=== PATIENT | female | born 1935 | race Caucasian/White ===

== ENCOUNTER 2018-09-22 10:05 | Day surgery (SDC) | payer MEDICARE, OTHER ==
[2018-09-21 14:43] LABS: BASOPHILS 0.4 % (0-2); EOSINOPHILS 2.2 % (0-7); HEMATOCRIT 31.9 % (36.0-48.0); HEMOGLOBIN 10.4 g/dL (12-16); IMMATURE GRANULOCYTES 0.2 % (0-5); MCHC 32.6 g/dL (31.0-37.0); MCV 85.8 fL (80.0-100.0); MEAN PLATELET VOLUME 8.6 fL (7.4-10.4); MONOCYTES 8.2 % (2-11); PLATELET COUNT 133 10x3/uL (130-400); RBC 3.72 10x6/uL (4.00-5.40); RDW 14.4 % (11.5-14.5); WBC 4.6 10x3/uL (4.8-10.8)
[2018-09-21 14:55] LABS: ANION GAP 13.7 mmol/L (8-16); CALCIUM 8.4 mg/dL (8.5-10.1); CARBON DIOXIDE 28.8 mmol/L (21.0-32.0); POTASSIUM - SERUM 3.5 mmol/L (3.5-5.1)
[~2018-09-22] VITALS: Ht 162.6 cm; Wt 72.7 kg
[~2018-09-22 10:05] MED LIST: CARDURA8 MG PO; CBD OIL PO; CITRACAL + D E1 EACH PO; DICLOFENAC ID; DOC-Q-LACE PO; FLUTICASONE PRO16 GM NASAL; FUROSEMIDE20 MG PO; KLOR-CON 1010 MEQ PO; LEVOXYL25 MCG PO; LIDOCAINE ID; MICARDIS HCT 81 EACH PO; NEURONTIN 300300 MG PO; POLY-IRON PO; PROTONIX40 MG PO; TOPROL XL50 MG PO; VITAMIN B-122500 MCG PO
[2018-09-22 10:54] VITALS: BP 140/77; BMI 25.8
[2018-09-22] MEDS ORDERED: PERCOCET 5-3251 TAB PO (14:25)
--- NOTE | 2018-09-22 18:45 | NUR ---
THIS NURSE ENTERS ROOM TO TRANSFER PATIENT TO [facility] RIGHT LOWER EXTREMITY DRESSING SATURATED WITH BLOOD AND ON THE SHEET UNDER THE EXTREMITY IN AREA ABOUT 6 INCHES X 12 INCHES. ATTEMPT TO PAGE DR AVILA
--- NOTE | 2018-09-22 18:45 | NUR ---
REPORT RECEIVED FROM ROSEMARY IN OUTPATIENT RECOVERY. WILL BRING PATIENT TO ROOM SHORTLY.
--- NOTE | 2018-09-22 19:10 | NUR ---
NO RESPONSE FROM DR AVILA. RIGHT KNEE CECILIA WRAP REMOVED, 4 X 4'S REMOVED, YELLOW DRESSING DIRECTLY OVER THE INCISION IS NOT SATURATED AND IS INTACT, THIS DRESSING LEFT ON. NEW 4 X 4'S AND KERLIX AND CECILIA WRAP PLACED. PATIENT TOLERATED PROCEDURE WELL. BRACE REPLACED
--- NOTE | 2018-09-22 19:30 | NUR ---
PATIENT TRANSFERRED BY WHEELCHAIR TO ROOM 2219, PATIENT TRANSFERRED WITH HEAVY ASSIST MAINTAINING NON-WEIGHT BEARING ON RLE
[2018-09-22 21:48] VITALS: BP 106/61
[2018-09-23 00:55] VITALS: BP 108/70
[2018-09-23 02:21] VITALS: BP 115/46; Ht 162.6 cm; Wt 72.7 kg
--- NOTE | 2018-09-23 03:00 | NUR ---
POST OP RIGHT KNEE BLEEDING THROUGH BANDAGE ONTO BED. REMOVED CECILIA WRAP AND DRESSING. APPLIED NEW GAUZE AND WRAPPED WITH KERLIX AND CECILIA. BRACE IN PLACE. CHANGED BEDDING. C/O PAIN 01/30. GAVE PAIN MED. NO OTHER NEEDS. WILL CONTINUE TO MONITOR.
[2018-09-23 05:35] VITALS: BP 113/47
[2018-09-23 08:25] VITALS: BP 119/54
--- NOTE | 2018-09-23 08:59 | NUR ---
PATIENT RESTING IN BED, S/P PARTIAL HARDWARE CHANGE TO RIGHT KNEE. DRESSING C/D/I, RIGHT LOWER LEG ELEVATED WITH PILLOW WITH ICE PACK APPLIED.
--- NOTE | 2018-09-23 11:47 | MORECARE ---
CASE MANAGEMENT DISCHARGE SUMMARY PATIENT: KEILA KENT UNIT: [id number] ADM DATE: 09/22/18 AGE: 83 : 36 SEX: F ROOM/BED: D.2219 AUTHOR: SANTIAGO,DOC PHYSICIAN: REFERRING PHYSICIAN: MARLENE AVILA MD DATE OF SERVICE: 09/23/18 Discharge Plan Patient Name: KEILA KENT Facility: [facility]:[place] : 1935 Planned Disposition: Anticipated Discharge Date: Discharge Date: Expected LOS: 0 Initial Reviewer: [email or web address] Initial Review Date: 09/23/2018 Generated: 09/23/18 12:47 pm Comments DCP- Discharge Planning Updated by [email or web address]: eKke Fry on 09/23/18 10:[address] Patient Name: KEILA KENT Admission Status: Elective Accout number: [id number] Admission Date: 09-22-2018 : 1935 Admission Diagnosis: Attending: MARLENE AVILA Current LOS: 1 Anticipated DC Date: Planned Disposition: Primary Insurance: MEDICARE A & B Discharge Planning Comments: CM met with patient to assess discharge planning needs. Patient was independent with her ADL's prior to surgery. She has a walker that she uses. There are no steps or stairs in her home. Her will be the one to drive her home when she is discharged. She would like to go to inpatient rehab. She does not feel safe to return home and her has some rese reservations about her coming home how she is doing at this point. Referral to inpatient rehab ordered. CM will continue to follow and assist with DC planning needs. Customer Care Manager: Keke Fry DCPIA - Discharge Planning Initial Assessment Updated by [email or web address]: Keke Fry on 09/23/18 11:43 am * Is the patient Alert and Oriented? Yes * How many steps to enter\exit or inside your home? * PCP KAIT * Pharmacy [facility] [address] [facility] * Preadmission Environment Home with Family * ADLs Independent * Equipment Rolling Walker * List name and contact numbers for known caregivers / representatives who currently or will assist patient after discharge: MARGRET KENT [phone] * Verbal permission to speak to the caregivers and representatives has been obtained from the patient. N/A * Community resources currently utilized None * Additional services required to return to the preadmission environment? Yes * Can the patient safely return to the preadmission environment? No * Has this patient been hospitalized within the prior 30 days at any hospital? No Patient Name: KEILA KENT Page [id number] at 1147 All edits/amendments must be made on the electronic document DICTATION DATE: 09/23/18 1146 MANAGER OF SOFTWARE DEVELOPMENT: ANABEL 09/23/18 1146 RPT#: [id number] DC DATE: STATUS: REG [facility] [address] [place] [address] END OF REPORT
--- NOTE | 2018-09-23 12:02 | NUR ---
PATIENT CONTINUES TO C/O PAIN TO RIGHT LEG OF 10 AFTER PERCOCET 5 GIVEN AT 1030, NOTIFIED DR LUCERO NURSE, JL ANN APN, WITH ORDERS TO INCREASE PERCOCET TO 10/325 AND TO GIVE ONE DOSE NOW
[2018-09-23 12:05] VITALS: BP 134/50
--- NOTE | 2018-09-23 12:41 | NUR ---
Rehab Note- Acute Inpatient prescreen order received. The patient had surgery 09/22/18, will follow to see for medical management necessity for inpatient acute rehab. Spoke with JOHANA Lim. Thank you for this referral! Russ Roach RN Clinical Liaison, [facility] Rehab
[2018-09-23 14:37] LABS: HEMOGLOBIN 9.2 g/dL (12-16); LYMPHOCYTES 10.1 % (15-50); MCHC 34.1 g/dL (31.0-37.0); MCV 85.2 fL (80.0-100.0); MEAN PLATELET VOLUME 8.1 fL (7.4-10.4); NEUTROPHILS 79.2 % (40-80); PLATELET COUNT 146 10x3/uL (130-400); RBC 3.17 10x6/uL (4.00-5.40)
[2018-09-23 14:40] LABS: WBC 6.4 10x3/uL (4.8-10.8)
--- NOTE | 2018-09-23 15:31 | MORECARE ---
CASE MANAGEMENT DISCHARGE SUMMARY PATIENT: KEILA KENT UNIT: [id number] ADM DATE: 09/22/18 AGE: 83 : 36 SEX: F ROOM/BED: D.2219 AUTHOR: SANTIAGODOC PHYSICIAN: REFERRING PHYSICIAN: MARLENE AVILA MD DATE OF SERVICE: 09/23/18 Discharge Plan Patient Name: KEILA KENT Facility: [facility]:[place] : 1935 Planned Disposition: Anticipated Discharge Date: Discharge Date: Expected LOS: 0 Initial Reviewer: [email or web address] Initial Review Date: 09/23/2018 Generated: 09/23/18 4:31 pm Comments DCP- Discharge Planning Updated by [email or web address]: Keke Fry on 09/23/18 2:[address] inpatient rehab will accept patient today per Johanne DCP- Discharge Planning Updated by [email or web address]: Keke Fry on 09/23/18 10:[address] Patient Name: KEILA KENT Admission Status: Elective Accout number: [id number] Admission Date: 09-22-2018 : 1935 Admission Diagnosis: Attending: MARLENE AVILA Current LOS: 1 Anticipated DC Date: Planned Disposition: Primary Insurance: MEDICARE A & B Discharge Planning Comments: CM met with patient to assess discharge planning needs. Patient was independent with her ADL's prior to surgery. She has a walker that she uses. There are no steps or stairs in her home. Her will be the one to drive her home when she is discharged. She would like to go to inpatient rehab. She does not feel safe to return home and her has some rese reservations about her coming home how she is doing at this point. Referral to inpatient rehab ordered. CM will continue to follow and assist with DC planning needs. Warhead Maintenance Specialist: Keke Fry DCPIA - Discharge Planning Initial Assessment Updated by [email or web address]: Keke Fry on 09/23/18 11:43 am * Is the patient Alert and Oriented? Yes * How many steps to enter\exit or inside your home? * PCP K[facility] * [facility] * Preadmission Environment Home with Family * ADLs Independent * Equipment Rolling Walker * List name and contact numbers for known caregivers / representatives who currently or will assist patient after discharge: MARGRET KENT [phone] * Verbal permission to speak to the caregivers and representatives has been obtained from the patient. N/A * Community resources currently utilized None * Additional services required to return to the preadmission environment? Yes * Can the patient safely return to the preadmission environment? No * Has this patient been hospitalized within the prior 30 days at any hospital? No Last DP export: 09/23/18 10:47 am Patient Name: KEILA KENT Page [phone] at 1531 All edits/amendments must be made on the electronic document DICTATION DATE: 09/23/181529 PEANUT SEPARATOR: ANABEL 09/23/181529 RPT#: [id number] DC DATE: STATUS: REG [facility] [address] [place] [address] END OF REPORT
[2018-09-23 16:00] VITALS: BP 157/77
--- NOTE | 2018-09-23 17:32 | NUR ---
REPORT CALLED TO REHAB. IV REMOVED WITH CATH INTACT, NO REDNESS OR EDEMA AT SITE. DISCHRGE TEACHING GIVEN TO PATIENT AND
--- NOTE | 2018-09-23 18:42 | NUR ---
PATIENT TAKEN TO REHAB BY WHEELCHAIR
[2018-09-23] MEDS ORDERED: COLACE100 MG PO (23:30)
[2018-09-23] MEDS ORDERED: ZOFRAN4 MG PO (23:32)
--- NOTE | 2018-09-29 13:37 | OP ---
PATIENT NAME: KEILA KENT MEDICAL RECORD: [id number] :[birth year] LOCATION:D.OPS ADMISSION DATE: SURGEON: MARLENE AVILA MD DATE OF OPERATION: 09/22/2018 PREOPERATIVE DIAGNOSES: 1. Chronic patellar tendon rupture. 2. Painful hardware. POSTOPERATIVE DIAGNOSES: 1. Chronic patellar tendon rupture. 2. Painful hardware. PROCEDURES: 1. Allograft patellar tendon reconstruction. 2. Removal of previously placed hardware - D[place]-Miles cable. SURGEON: Marlene Avila MD LEARNING AND DEVELOPMENT ASSISTANT: LIZBETH Diamond INTRAOPERATIVE COMPLICATIONS: None. SUMMARY OF PATHOLOGIC FINDINGS: The patient was found to have a complete rupture of the patellar tendon with extreme patella marko. In order to fix this, internal bracing technique from [employer] was utilized in turn with a large Achilles tendon allograft that was soaked in the patient's PRP prior to placement and the tendinous portion was injected with PRP after fixation. OPERATIVE SUMMARY IN DETAIL: After obtaining the appropriate preoperative orthopedic surgery consent as well as anesthetic consultation, evaluation, and clearance, the patient was brought to the operating room and placed on the operating table in the supine position. After general laryngeal mask airway was administered, a tourniquet was placed about the proximal aspect of the right lower extremity. The right lower extremity was then prepped and draped in routine sterile fashion. The leg was elevated, exsanguinated, and the tourniquet was inflated to 350 mmHg. A midline incision was taken down where the patient's prior total knee arthroplasty had been done. This was taken down to the level of the tibial tubercle. The fibrous tissue was excised as it had no elasticity. At this point, bone block matching the bone block size of the tibial tubercle and the osseous portion of the Achilles allograft was cut out. It was seated with pressure and then held into place with 3 compression screws from [employer]. The screws were angled slightly medial to miss the keel and post of the previously placed revision total knee arthroplasty. At this point, the tendon was pulled up to the patella, and at this point, I made the decision to put in 2 internal braces to help hold with this repair. The patella was clamped on either side and pulled to its appropriate location from its marko position as seen on fluoroscopy. A combination of 3.5 SwiveLocks and FiberTape were used, both medial and lateral to the graft. The lateral patellar SwiveLock required a 4.75 as the patient did have osteoporosis. The patella was held at its appropriate position with the internal braces while the graft was sutured in. I took the liberty of excising medial and lateral portions of nonelastic-appearing scar tissue to help reapproximate the retinaculum to the graft. The retinaculum to the graft was achieved with crisscross running FiberWire medially and laterally. FiberWire was again used to reapproximate the proximal aspect of the OPERATIVE REPORT [id number] KEILA KENT graft to the patellar paratenon and periosteum. This was then irrigated copiously. This was followed by gentle placement of PRP in the entire incision. Please note that the bone graft had been soaked in PRP. Then, with an 18-gauge needle, the graft itself was insufflated from proximal to distal as well as putting PRP into the torres martinez tissue on each side. Having completed this, wound was then closed with #1 Vicryl, 2-0 Vicryl, and skin enrique. Sterile dressings were applied. A knee immobilizer was applied with hinges set at and locked out at 0. Having completed this, tourniquet was deflated. The patient was awakened and taken to the recovery room in stable condition. All final needle and sponge counts were correct. TRANSINT:[id number] Voice Confirmation ID: [id number] DOCUMENT ID: [id number] AUSTIN VELEZ, MARLENE BAUER at 1337 CC: [id number] DICTATION DATE: 09/28/18 1358 ASSEMBLING MOTOR BUILDER: 09/28/18 1621 [facility] 09/23/18 [facility] [address] [id number]
== END 2018-09-23 18:45 | disposition home or self-care (01) ==
LOC: D.MS 10:05 → D.OPS 10:05 → D.PAN 14:45 → D.OPS 15:55 → D.MS 18:39 → D.OPS 09-23 18:45
PROVIDERS: Anesthesiology; Orthopaedic Surgery
DX: S76.111A Strain of right quadriceps muscle, fascia and tendon, initial encounter (principal); X58.XXXA Exposure to other specified factors, initial encounter; T84.84XA Pain due to internal orthopedic prosthetic devices, implants and grafts, initial encounter

== ENCOUNTER 2018-09-23 19:17 | Inpatient (IN) | payer MEDICARE, OTHER ==
[~2018-09-23] VITALS: Ht 162.6 cm; Wt 72.6 kg
--- NOTE | 2018-09-23 19:00 | NUR ---
PT ARRIVED TO UNIT VIA WC PROPELLED BY STAFF. TAKEN TO ROOM 1115. MAX TRANSFER X 2 ASSISTS REQUIRED TO TRANSFER PT TO BED. PT IS ALERT AND ORIENTED X 3. PT AND SPOUSE BEGAN DEMANDING PAIN MEDICINE SOON BROUGHT TO UNIT. THEY STATED THEY COULD NOT HAVE ANYTHING FOR PAIN OR NAUSEA UNTIL THE GOT TO REHAB. I EXPLAINED THAT IT WOULD BE A LITTLE WHILE TO GET PT ADMITTED AND GET MEDS ORDERED. BOTH VOICED VERBAL UNDERSTANDING TO THIS. PT HAS A HINGED BRACE ON HER RIGHT KNEE. ORIENTED TO ROOM AND REHAB RULES WITH VERBAL UNDERSTANDING VOICED. SR'S ARE UP X 3 IN BED. CALL LIGHT AND BEDSIDE TABLE ARE WITHIN EASY REACH.
[~2018-09-23 19:17] MED LIST changes: +PERCOCET 5-3251 TAB PO
--- NOTE | 2018-09-23 19:40 | NUR ---
PT IN COMPUTER. ORDERS WRITTEN AND SENT TO PHARMACY. PTS SPOUSE IS AT THE NURSES STATION Q10 MINUTES DEMANDING THE DR BE CALLED SINCE I WAS UNABLE TO GET THE JOB DONE.
--- NOTE | 2018-09-23 19:58 | NUR ---
PATIENT IS RESTING IN HER BED. SPOUSE AND PRIMARY NURSE AT BEDSIDE. BED IS DOWN LOW WITH SIDE RAILS UP X2. CALL LIGHT IS IN REACH.
--- NOTE | 2018-09-23 22:25 | NUR ---
PT ASSISTED ONTO BEDPAN. SPOUSE STATES HE WILL CALL WHEN SHE IS FINISHED.
[2018-09-23 23:14] VITALS: BP 159/72
[2018-09-23] MEDS ORDERED: COLACE100 MG PO (23:30)
[2018-09-23] MEDS ORDERED: ZOFRAN4 MG PO (23:32)
--- NOTE | 2018-09-24 01:00 | NUR ---
PT IS RESTING IN BED WITH EYES OPEN. NO ACUTE DISTRESS NOTED.
--- NOTE | 2018-09-24 04:44 | NUR ---
RESTING IN BED WITH EYES CLOSED.
[2018-09-24 06:35] LABS: BASOPHILS 0.2 % (0-2); EOSINOPHILS 0.2 % (0-7); HEMATOCRIT 26.6 % (36.0-48.0); HEMOGLOBIN 8.7 g/dL (12-16); IMMATURE GRANULOCYTES 0.2 % (0-5); LYMPHOCYTES 13.4 % (15-50); MCH 27.8 pg (26.0-34.0); MCHC 32.7 g/dL (31.0-37.0); MEAN PLATELET VOLUME 8.3 fL (7.4-10.4); MONOCYTES 10.2 % (2-11); NEUTROPHILS 75.8 % (40-80); PLATELET COUNT 126 10x3/uL (130-400); RBC 3.13 10x6/uL (4.00-5.40); RDW 14.6 % (11.5-14.5); WBC 5.6 10x3/uL (4.8-10.8)
[2018-09-24 06:49] LABS: ANION GAP 13.5 mmol/L (8-16); CALCIUM 8.3 mg/dL (8.5-10.1); CARBON DIOXIDE 27.6 mmol/L (21.0-32.0); CREATININE - SERUM 0.8 mg/dL (0.6-1.3); POTASSIUM - SERUM 3.1 mmol/L (3.5-5.1)
[2018-09-24 08:18] VITALS: BP 148/71
[2018-09-24 10:00] VITALS: Ht 162.6 cm; Wt 72.6 kg
--- NOTE | 2018-09-24 18:31 | NUR ---
NEEDS LOTS OF ENCOURAGEMENT TO TO SIMPLE TASKS LIKE TAKING MEDS AND EATING. MOVEMENTS ARE SLOW. STILL HAS BRACE TO RT KNEE. HAS ASK FOR PAIN MEDS ONCE TODAY. STILL HAVING NAUSEA.
--- NOTE | 2018-09-24 19:14 | NUR ---
PATIENT IS RESTING IN HER BED AND WORKING ON FINISHING HER DINNER. DENIES ANY NEEDS. BED IS DOWN LOW WITH SIDE RAILS UP X2. CALL LIGHT IS IN REACH.
--- NOTE | 2018-09-24 21:21 | NUR ---
PT RESTING IN BED WITH EYES OPEN. NO NEEDS VOICED.
--- NOTE | 2018-09-25 00:07 | NUR ---
RESTING IN BED WITH EYES CLOSED.
--- NOTE | 2018-09-25 05:59 | NUR ---
PT RESTING IN BED WITH EYES CLOSED. AWOKE EASILY TO VERBAL STIMULI. TOLERATED AM MEDS WITHOUT DIFFICULTY. NO FURTHER NEEDS VOICED.
[2018-09-25 07:59] VITALS: BP 144/60
[2018-09-25 18:43] VITALS: BP 97/36
[2018-09-25 19:12] VITALS: BP 97/36
--- NOTE | 2018-09-25 19:16 | NUR ---
PATIENT IS RESTING IN BED WITH EYES CLOSED. BED IS DOWN LOW WITH SIDE RAILS UP X2. CALL LIGHT IS IN REACH.
--- NOTE | 2018-09-25 21:58 | NUR ---
PT RESTING IN BED WATCHING TV. NO NEEDS VOICED.
--- NOTE | 2018-09-26 01:00 | NUR ---
PT RESTING IN BED WITH EYES CLOSED. NO DISTRESS NOTED.
--- NOTE | 2018-09-26 04:59 | NUR ---
PT RESTING IN BED WITH EYES CLOSED.
[2018-09-26 06:53] LABS: BASOPHILS 0.3 % (0-2); EOSINOPHILS 3.1 % (0-7); HEMATOCRIT 25.1 % (36.0-48.0); HEMOGLOBIN 8.2 g/dL (12-16); LYMPHOCYTES 21.3 % (15-50); MCH 28.6 pg (26.0-34.0); MCHC 32.7 g/dL (31.0-37.0); MCV 87.5 fL (80.0-100.0); MEAN PLATELET VOLUME 8.3 fL (7.4-10.4); MONOCYTES 9.4 % (2-11); NEUTROPHILS 65.9 % (40-80); PLATELET COUNT 110 10x3/uL (130-400); RBC 2.87 10x6/uL (4.00-5.40); RDW 14.9 % (11.5-14.5); WBC 3.2 10x3/uL (4.8-10.8)
[2018-09-26 07:04] LABS: CALCIUM 8.3 mg/dL (8.5-10.1); CARBON DIOXIDE 29.1 mmol/L (21.0-32.0); POTASSIUM - SERUM 4.1 mmol/L (3.5-5.1)
--- NOTE | 2018-09-26 07:59 | NUR ---
SITTING UP EATING BREAKFAST. NO S/S DISTRESS NOTED. CALL LIGHT IN REACH.
[2018-09-26 08:00] VITALS: BP 104/43
--- NOTE | 2018-09-26 13:58 | NUR ---
SITTING IN WC IN ROOM. IS STILL IN ROOM WITH PT. BRACE STILL ON RLE. INCISION TO RT KNEE NOTED UNDER DSG. CALL FERMIN ALVAREZ.
--- NOTE | 2018-09-26 18:35 | NUR ---
LAYING IN BED. STILL RECEIVING BLOOD VIA LEFT AC. IN ROOM WITH PT HELPING HER WITH SUPPER. SHE IS SLOW TO FOLLOW COMMANDS AND SPEECH IS SLOW BUT CLEAR. CALL LIGHT IN REACH. BRACE ON RT KNEE.
--- NOTE | 2018-09-26 19:13 | NUR ---
PATIENT IS LAYING IN BED RECEIVING BLOOD. FAMILY MEMBER AT BEDSIDE.
--- NOTE | 2018-09-26 19:45 | NUR ---
BLOOD TRANSFUSION COMPLETE. PATIENT AWAKE AND ALERT. VITAL SIGNS T-97.7, P-80, SP02 94, BP 120/55, RR 16. WCTM.
[2018-09-26 19:49] VITALS: BP 120/55
[2018-09-26 21:00] VITALS: BP 109/52
--- NOTE | 2018-09-27 00:12 | NUR ---
PATIENT AWAKE SITTING IN BED READING THE NEWSPAPER. DENIES ANY NEEDS AT THIS TIME. CALL LIGHT IN REACH.
--- NOTE | 2018-09-27 03:00 | NUR ---
PATIENT ASLEEP WITH EYES CLOSED LAYING IN SUPINE POSITION. HOB AT 30 DEGREES. RESPIRATIONS EVEN. NO SIGNS OF DISTRESS. CALL LIGHT IN REACH.
--- NOTE | 2018-09-27 03:40 | NUR ---
ASSISTED PATIENT WITH BEDPAN. PATIENT DIDNT PRODUCE ANY URINE OR BOWEL. REMOVED FROM BED MARIO AND REPOSITIONED FOR COMFORT. CALL LIGHT IN REACH
--- NOTE | 2018-09-27 05:45 | NUR ---
ASSISTED PATIENT ON TO BEDPAN.
[2018-09-27 08:00] VITALS: BP 148/62
--- NOTE | 2018-09-27 08:16 | NUR ---
SITTING UP IN WC EATING BREAKFAST. NO DISTRESS NOTED. PAIN MED GIVEN BEFORE THERAPY. CL IN REACH.
--- NOTE | 2018-09-27 12:08 | NUR ---
Nutrition Follow Up: Chart reviewed Diet: Regular; Ensure BID PO Intake: 32% meal avg BM: 09/26/18 Labs reviewed Meds noted including Lasix, Vit B12 Rec continue current diet, supplement regimen. Will honor food preferences. Pt may benefit from an appetite stimulant. RD following.
--- NOTE | 2018-09-27 13:50 | NUR ---
SAT IN FOR LUNCH AFTER DOING THERAPY THIS AM. PUT BACK TO BED AT THIS TIME. PAIN MED GIVEN.
--- NOTE | 2018-09-27 15:56 | NUR ---
NO CHANGE IN ASSESSMENT. RESP EVEN AND UNLABORED.
--- NOTE | 2018-09-27 19:36 | NUR ---
PATIENT RECEIVED SITTING UP IN BED WITH HELPING HER EAT. PATIENT ASSESSMENT DONE. PATIENT PAIN LEVEL 0. ASKED IF CONFUSION CAN BE A SYMPTOM OF PAIN MEDICATION. DID NOT WANT PAIN MEDICATION CHANGED. PATIENT ALARM ON BED ON. PATIENT CALL LIGHT WITHIN REACH. WILL CONTINUE TO MONITOR.
[2018-09-27 21:34] VITALS: BP 132/63
--- NOTE | 2018-09-28 00:28 | NUR ---
PATIENT PAIN MEDICATION EFFECTIVE. EYES CLOSED. RESPIRATIONS 18 & EVEN. PATIENT BED LOW. ALARM ON. CALL LIGHT WITHIN REACH. WILL CONTINUE TO MONITOR.
--- NOTE | 2018-09-28 02:39 | NUR ---
PT ASLEEP NO NEEDS NOTED FLUIDS AND CALL LIGHT WITHIN REACH
--- NOTE | 2018-09-28 04:05 | NUR ---
PATIENT EYES CLOSED. RESPIRATIONS 18 & EVEN. BED LOW. ALARM ON. CALL LIGHT WITHIN REACH. WILL CONTINUE TO MONITOR,
--- NOTE | 2018-09-28 07:40 | NUR ---
PT RESTING IN BED WITH EYES OPEN CALL LIGHT IN REACH WILL MONITER
--- NOTE | 2018-09-28 07:43 | NUR ---
REPOSITIONED UP IN BED FOR BREAKFAST. NO DISTRESS NOTED.
[2018-09-28 07:47] LABS: BASOPHILS 0.3 % (0-2); EOSINOPHILS 4.9 % (0-7); HEMATOCRIT 28.5 % (36.0-48.0); HEMOGLOBIN 9.4 g/dL (12-16); IMMATURE GRANULOCYTES 0.3 % (0-5); LYMPHOCYTES 16.3 % (15-50); MCH 28.1 pg (26.0-34.0); MCV 85.3 fL (80.0-100.0); MEAN PLATELET VOLUME 8.4 fL (7.4-10.4); MONOCYTES 12.2 % (2-11); RBC 3.34 10x6/uL (4.00-5.40); RDW 15.1 % (11.5-14.5); WBC 3.7 10x3/uL (4.8-10.8)
[2018-09-28 07:49] LABS: PLATELET COUNT 137 10x3/uL (130-400)
[2018-09-28 07:57] LABS: ANION GAP 14.6 mmol/L (8-16); CALCIUM 8.3 mg/dL (8.5-10.1); CARBON DIOXIDE 27.3 mmol/L (21.0-32.0); CREATININE - SERUM 0.8 mg/dL (0.6-1.3); POTASSIUM - SERUM 3.9 mmol/L (3.5-5.1)
[2018-09-28 08:00] VITALS: BP 149/77
--- NOTE | 2018-09-28 18:45 | NUR ---
PT RESTING IN BED WITH EYES OPEN CALL LIGHT IN REACH NO PROBLEMS WILL MONITER
--- NOTE | 2018-09-28 23:14 | NUR ---
PT PUT ON BEDPAN, COMPLETE BED CHANGE DONE FLUIDS AND BRITTANY;L LIGHT WITHIN REACH
[2018-09-29 00:32] VITALS: BP 143/70
--- NOTE | 2018-09-29 08:00 | NUR ---
SHIFT ASSMT COMPLETED
[2018-09-29 08:05] VITALS: BP 114/61
--- NOTE | 2018-09-29 12:00 | NUR ---
EATING LUNCH. AT BEDSIDE.
[2018-09-29 19:00] VITALS: BP 120/54
--- NOTE | 2018-09-29 20:10 | NUR ---
THE PATIENT WAS WATCHING TELEVISION WHEN STAFF ENTERED HER AREA. BED IN THE LOW POSITION WITH SIDERAILS X2 AND CALL LIGHT WITHIN REACH. PATIENT EDUCATED ON USE OF A CALL LIGHT AND DEMONSTRATES UNDERSTANDING VIA TEACHBACK METHOD. THE PATIENT APPEARS COMFORTABLE WITH NO QUESTIONS OR CONCERNS AT THIS TIME.
--- NOTE | 2018-09-30 03:19 | NUR ---
PATIENT AWAKE AND REQUESTS USE OF A BED MARIO. NO OTHER QUESTIONS OR CONCERNS NOTED.
[2018-09-30 05:27] LABS: BASOPHILS 0.5 % (0-2); EOSINOPHILS 5.6 % (0-7); HEMATOCRIT 28.1 % (36.0-48.0); HEMOGLOBIN 9.1 g/dL (12-16); IMMATURE GRANULOCYTES 0.5 % (0-5); LYMPHOCYTES 14.4 % (15-50); MCH 28.2 pg (26.0-34.0); MCHC 32.4 g/dL (31.0-37.0); MEAN PLATELET VOLUME 8.2 fL (7.4-10.4); MONOCYTES 14.1 % (2-11); NEUTROPHILS 64.9 % (40-80); PLATELET COUNT 141 10x3/uL (130-400); RBC 3.23 10x6/uL (4.00-5.40); RDW 15.1 % (11.5-14.5); WBC 4.3 10x3/uL (4.8-10.8)
[2018-09-30 05:30] LABS: ANION GAP 13.5 mmol/L (8-16); CALCIUM 8.2 mg/dL (8.5-10.1); CARBON DIOXIDE 29.5 mmol/L (21.0-32.0)
[2018-09-30 05:31] LABS: CREATININE - SERUM 1.1 mg/dL (0.6-1.3)
--- NOTE | 2018-09-30 07:44 | NUR ---
PATIENT HELPED OUT OF BED. MOD ASST OF ONE. TRANSFERED TO TOILET USING GRAB BAR, MOD TO MIN ASST OF ONE. AFTER TOILETING DRESSING CHANGED TO RIGHT KNEE. MODERATE AMOUNT OF BLOODING DRAINAGE TO CENTER OF INCISION WHERE SURGICAL CLIPS HAVE BEEN REMOVED
[2018-09-30 08:00] VITALS: BP 132/54
--- NOTE | 2018-09-30 13:45 | NUR ---
PATIENTS UP TO NURSING STATION. ASKED ABOUT A PAIN PATCH DR. CROWE STATED HE WAS GOING TO ORDER. THIS NURSE CALLED DR CROWE. NEW ORDER FOR DURAGESIC PATCH
--- NOTE | 2018-09-30 18:03 | NUR ---
DRESSING CHANGED AGAIN TO RIGHT KNEE INCISION. LARGE AMOUNT OF BRIGHT RED BLOODY DRAINAGE
[2018-09-30 19:00] VITALS: BP 125/55
--- NOTE | 2018-09-30 20:07 | NUR ---
PATIENT RECEIVED SITTING UP IN BED WATCHING TV. PATIENT ASSESSMENT & VITAL SIGNS DONE. PATIENT BED LOW. ALARM ON. NO C/O PAIN OR DISTRESS. PATIENT CALL LIGHT WITHIN REACH. WILL CONTINUE TO MONITOR.
--- NOTE | 2018-10-01 08:15 | NUR ---
PT RESTING IN BED WITH EYES OPEN CALL LIGHT IN REACH NO PROBLEMS WILL MONITER
--- NOTE | 2018-10-01 18:18 | NUR ---
RESTING QUIETLY IN BED. NO S/S DISTRESS. CALL LIGHT IN REACH. BED IN LOWEST POSITION.
--- NOTE | 2018-10-01 18:33 | NUR ---
PT RESTING IN BED WITH EYES OPEN CALL LIGHT IN REACH NO PROBLEMS WILL MONITER
--- NOTE | 2018-10-01 23:04 | NUR ---
RESTING IN BED WITH NO DISTRESS NOTED. RESPIRATIONS UNLABORED. CALL LIGHT IN REACH.
--- NOTE | 2018-10-02 01:38 | NUR ---
PT IS RESTING QUIETLY IN BED WITH EYES CLOSED. NO DISTRESS NOTED.
--- NOTE | 2018-10-02 04:52 | NUR ---
PT ASSISTED TO THE BATHROOM WITH MOD ASSIST. NO FURTHER NEEDS VOICED.
--- NOTE | 2018-10-02 11:11 | NUR ---
PATIENT AWAKE AND ALERT THIS MORNING. ATE 50% OF BREAKFAST. HAD SHOWER THIS MORNING. INCISION TO RIGHT KNEE BLEEDING. DRESSING CHANGED AND STERI-STRIPS REPLACED. KNEE IMBOLIZER REPOSTIONED. PATIENT SITTING UP IN WHEELCHAIR VISITING WITH AT THIS TIME. CALL LIGHT WITHIN REACH. WILL CONTINUE TO MONITOR.
[2018-10-02 13:59] VITALS: BP 124/56
[2018-10-02 19:49] VITALS: BP 95/50
--- NOTE | 2018-10-02 20:00 | NUR ---
PT IS RESTING IN BED WITH EYES OPEN. ALERT AND ORIENTED X 3. DENIES ACUTE PAIN OR DISCOMFORT AT THIS TIME. VSS. RIGHT KNEE BRACE IS ON AND INTACT. SR'S ARE UP X 3 IN BED. CALL LIGHT AND BEDSIDE TABLE ARE WITHIN EASY REACH.
--- NOTE | 2018-10-02 21:40 | NUR ---
PT ASSISTED TO THE BATHROOM WITH MIN ASSIST. VOIDED WITHOUT DIFFICULTY. DRESSING TO RIGHT KNEE NOTED TO BE PEELING OFF. MOD AMOUNT OF DRIED BLOOD NOTED ON IT. DRESSING CHANGED. SITE CLEANSED WITH NS, AND NEW AIR STRIP DRESSING APPLIED. NO ACTIVE BLEEDING NOTED. BRACE REAPPLIED, AND PT TAKEN BACK TO ROOM. SHE OPTED TO SIT UP IN BED FOR A WHILE, STATING SHE WAS TIRED OF LAYING DOWN ALL DAY.
--- NOTE | 2018-10-03 00:12 | NUR ---
RESTING IN BED WITH RESPIRATIONS UNLABORED. NO DISTRESS NOTED. CALL LIGHT IN REACH.
--- NOTE | 2018-10-03 05:00 | NUR ---
PT IS RESTING IN BED WITH EYES CLOSED. NO ACUTE DISTRESS NOTED.
[2018-10-03 06:38] LABS: BASOPHILS 0.4 % (0-2); EOSINOPHILS 4.3 % (0-7); HEMATOCRIT 28.6 % (36.0-48.0); HEMOGLOBIN 9.1 g/dL (12-16); IMMATURE GRANULOCYTES 0.4 % (0-5); LYMPHOCYTES 21.4 % (15-50); MCH 27.7 pg (26.0-34.0); MCHC 31.8 g/dL (31.0-37.0); MCV 86.9 fL (80.0-100.0); MEAN PLATELET VOLUME 8.4 fL (7.4-10.4); MONOCYTES 9.3 % (2-11); NEUTROPHILS 64.2 % (40-80); PLATELET COUNT 165 10x3/uL (130-400); RBC 3.29 10x6/uL (4.00-5.40); RDW 14.7 % (11.5-14.5); WBC 4.6 10x3/uL (4.8-10.8)
[2018-10-03 06:46] LABS: ANION GAP 13.7 mmol/L (8-16); CALCIUM 8.6 mg/dL (8.5-10.1); CARBON DIOXIDE 29.7 mmol/L (21.0-32.0); CREATININE - SERUM 0.9 mg/dL (0.6-1.3); POTASSIUM - SERUM 3.4 mmol/L (3.5-5.1)
--- NOTE | 2018-10-03 07:31 | NUR ---
PATIENT SLEEPING AT THIS TIME. CALL LIGHT WITHIN REACH. WILL CONTINUE TO MONITOR.
[2018-10-03 07:34] VITALS: BP 116/52
--- NOTE | 2018-10-03 10:22 | NUR ---
PATIENT ATE 100% OF BREAKFAST. AWKAE AND ALERT THIS MORNING. NO COMPLAINT OF KNEE OR LEG PAIN AT THIS TIME. WILL CONTINUE TO MONITOR. CALL LIGHT WITHIN REACH.
--- NOTE | 2018-10-03 16:07 | NUR ---
PATIENT COMPLAINING OF RIGHT KNEE PAIN. TOO EARLY TO GIVE PAIN MEDICATION. PATIENT RESTING IN BED SO KNEE BRACE LOOSENED AND ICE APPLIED TO KNEE. NOTICED THAT DRESSING HAD BLOOD SEEPING THROUGH THE SIDE SO DRESSING WAS CHANGED. KNEE APPEARS SIGHTLY SWOLLEN NUT NO REDNESS OR WARMTH NOTED. SMALL AMOUNT OF LEAKAGE NOTED FROM THE INCISION WHERE THE STERI STRIPS ARE. WOUND CLEANSED AND DRESSING CHANGED. UNABLE TO DO THERAPY TODAY DUE TO PAIN. RESTING IN BED WITH AT BEDSIDE. WILL CONTINUE TO MONITOR.
[2018-10-03 19:43] VITALS: BP 106/38
--- NOTE | 2018-10-03 20:00 | NUR ---
PATIENT RECEIVED SITTING UP IN CHAIR AT BED SIDE. VITAL SIGNS & ASSESSSMENT DONE. PATIENT TAKEN TO TOILET. PATIENT SLOWLY STOOD UP & PIVOTING ONTO TOILET. PATIENT HAD NO VOID. PATIENT TRANSFERRED INTO WHEELCHAIR. THEN INTO BED. PATIENT MADE COMFORTABLE. BED LOW. ALARM ON. CALL LIGHT WITHIN REACH. WILL CONTINUE TO MONITOR.
--- NOTE | 2018-10-03 22:45 | NUR ---
PT ASLEEP NO NEEDS NOTED FLUIDS AND CALL LIGHT WITHIN REACH
--- NOTE | 2018-10-04 01:00 | NUR ---
PATIENT EYES CLOSED. RESPIRATIONS 18 & EVEN. PAIN MEDICATION EFFECTIVE. PATIENT BED LOW. ALARM ON. CALL LIGHT WITHIN REACH. WILL CONTINUE TO MONITOR.
--- NOTE | 2018-10-04 07:54 | NUR ---
SITTING UP EATING BREAKFAST. NO C/O PAIN.
[2018-10-04 08:00] VITALS: BP 123/61
--- NOTE | 2018-10-04 08:15 | NUR ---
PT UP IN WHEELCHAIR IN ROOM EATING BREAKFAST CALL LIGHT IN REACH WILL MONITER
--- NOTE | 2018-10-04 14:00 | NUR ---
Nutrition Follow Up: Pt was in therapy at the time of RD visit. Interview deferred. Diet: Regular; Ensure BID PO Intake: 87% meal avg BM: 10/03/18 Labs reviewed Meds noted including Lasix Rec continue current diet, supplement regimen. RD following.
--- NOTE | 2018-10-04 19:15 | NUR ---
PT RECEIVED UP IN WHEELCHAIR AT SINK BRUSHING TEETH. IN ROOM. WHEN PT FINISHED BRUSHING TEETH ASSISTANCE GIVEN TO MOVE HINGED BRACE UP LEG AND RESECURE FOR SUPPORT AND PT COMFORT. PJ PANT ALSO APPLIED OVER BRACE PER REQUEST. NO OTHER NEEDS MADE KNOWN. WILL CONTINUE TO OBSERVE.
--- NOTE | 2018-10-04 21:41 | NUR ---
PT RECEIVED MEDICATIONS PER MAR, TOLERATED WELL. SITTING IN WHEELCHAIR AT BEDSIDE, READING A MAGAZINE. CALL LIGHT IN REACH. WILL CONTINUE TO OBSERVE.
[2018-10-04 21:45] VITALS: BP 109/57
--- NOTE | 2018-10-04 22:33 | NUR ---
PT TRANSFERRED TO TOILET WITH MINIMAL ASSIST, PT PROVIDED SELF CARE WITH CLEANING. MIN ASSIST TO WHEELCHAIR THEN TO BED. HOB 15 DEGREES, PILLOW UNDER KNEES FOR SUPPORT OF BRACED LEG. TABLE AT BEDSIDE WITH WATER AND CALL LIGHT IN REACH. WILL CONTINUE TO OBSERVE.
[2018-10-05 06:22] LABS: BASOPHILS 0.5 % (0-2); EOSINOPHILS 7.3 % (0-7); HEMATOCRIT 28.3 % (36.0-48.0); HEMOGLOBIN 8.9 g/dL (12-16); IMMATURE GRANULOCYTES 0.5 % (0-5); LYMPHOCYTES 18.9 % (15-50); MCH 27.5 pg (26.0-34.0); MCHC 31.4 g/dL (31.0-37.0); MCV 87.3 fL (80.0-100.0); MEAN PLATELET VOLUME 8.2 fL (7.4-10.4); MONOCYTES 9.9 % (2-11); NEUTROPHILS 62.9 % (40-80); PLATELET COUNT 164 10x3/uL (130-400); RBC 3.24 10x6/uL (4.00-5.40); RDW 14.6 % (11.5-14.5); WBC 4.1 10x3/uL (4.8-10.8)
[2018-10-05 06:38] LABS: ANION GAP 15.4 mmol/L (8-16); CALCIUM 8.5 mg/dL (8.5-10.1); CARBON DIOXIDE 27.1 mmol/L (21.0-32.0); POTASSIUM - SERUM 3.5 mmol/L (3.5-5.1)
--- NOTE | 2018-10-05 07:20 | NUR ---
AWAKE AND ALERT. NO DISTRESS NOTED. RESP EVEN AND UNLABORED.
[2018-10-05 08:00] VITALS: BP 132/56
--- NOTE | 2018-10-05 11:24 | NUR ---
PT RESTING IN BED WITH EYES OPEN CALL LIGHT IN REACH NO PROBLEMS WILL MONITER
--- NOTE | 2018-10-05 12:19 | RHP ---
PATIENT: KEILA KENT MEDICAL RECORD: [id number] ACCOUNT: [id number] LOCATION:[facility]1115 : 37 ADMISSION DATE: 09/23/18 REHABILITATION HISTORY AND PHYSICAL EXAMINATION POST ADMISSION PHYSICIAN EXAMINATION POST-ADMISSION PHYSICAL EXAMINATION AND HISTORY AND PHYSICAL DATE OF ADMISSION: 09/23/2018 ADMITTING DIAGNOSIS: Exacerbated pain secondary to ruptured patellar tendon. HISTORY OF PRESENT ILLNESS: The patient is a female, who is admitted secondary to pain syndrome secondary to a ruptured patellar tendon, 83-year-old female patient had a right total knee in May 2016. She has significant problems with her knee, required use of pain medicines to tolerate even ambulating. Her states that she was able to ambulate better on that knee prior to her surgery, actually pain increased to the point that she required surgery due to a ruptured patellar tendon on 09/22. She has got a past medical history of sinus problems, thyroid problems, hypertension, right knee replacement, chronic back pain, carpal tunnel, skin cancers. Past surgical history includes hysterectomy, joint replacement, appendectomy, lumpectomy, laminectomy, and cataract surgery. She has had acute bleeding from the surgical incision, acute blood loss anemia, increased pain, impaired mobility, increased weakness, gait disturbance. She has got her right knee in an immobilizer. She is high risk for falls and self-care deficits. These are all barriers to her discharge. She lives at home with her , was moderately independent with rolling walker for mobility and independent to moderately independent with the use of a shower bench for ADLs. She and her plan to her return home at her prior level of function or better if possible. Comorbidities in this patient include acute postop blood loss anemia, bleeding from surgical incision, increased pain, high fall risk, impaired mobility, gait disturbance, weakness, self-care deficits, thyroid problems, hypertension, gastric ulcers, and chronic back pain. PAST MEDICAL HISTORY: Significant for problems with being hard of hearing, allergies, sinus problems, thyroid problems, gastric ulcers, chronic back pain, and skin cancers. PAST SURGICAL HISTORY: Includes carpal tunnel release, knee replacement, hysterectomy, tonsillectomy and adenoidectomy, appendectomy, lumpectomy, lumbar laminectomy, and cataract surgery. ALLERGIES: KEFLEX, FLUNISOLIDE, SULFA, IBUPROFEN, NITROFURANTOIN, AND MARCAINE. CURRENT MEDICATIONS: Include hydrochlorothiazide 12.5 mg daily, Micardis 80 mg daily, Protonix 40 mg daily, metoprolol 50 mg daily, Synthroid 25 mcg daily, furosemide 20 mg daily, doxazosin 8 mg daily, B12 at 2500 mcg daily, Os-Rich with D daily, Colace 100 mg b.i.d., Zofran 4 mg every 4 hours p.r.n., potassium 10 mEq t.i.d., Percocet 10/325 one to two tabs every 4 hours p.r.n., Neurontin 300 mg t.i.d., Voltaren gel to apply as needed, and MiraLax 17 grams in 8 ounces of water daily. HABITS: No current alcohol or tobacco use. FAMILY HISTORY: Noncontributory. HISTORY AND PHYSICAL [id number] KEILA KENT SOCIAL HISTORY: The patient hopes to return back home and get back to her prior level of functioning. REVIEW OF SYSTEMS: GENERAL: Does complain a little bit of weakness. HEENT: Denies cold, cough, or congestion. CARDIOVASCULAR: Denies chest pain. PHYSICAL EXAMINATION: VITAL SIGNS: Stable, afebrile. GENERAL: Elderly female, in no acute distress upon exam. HEENT: Normocephalic and atraumatic. Mucosa moist. NECK: Supple. No lymphadenopathy. LUNGS: Clear at this time. HEART: Regular rate and rhythm. No murmurs, rubs, or gallops. ABDOMEN: Benign. EXTREMITIES: Does have postop swelling, which appears normal. She does have some serosanguineous type drainage from this wound. NEUROLOGIC: She does have proximal muscle weakness. LABORATORY DATA: White count of 5.6, H&H of 8.7 and 26.6, and platelet count is 126. Her sodium is 132, potassium 3.1, BUN and creatinine of 17 and 0.8, and blood sugar is noted be 123. ASSESSMENT: This is an 83-year-old female patient, admitted to the rehab with a working diagnosis of severe pain secondary to patellar rupture of a knee replacement. The patient has potential to make improvement. We will institute the following multidisciplinary therapies including, not limited to, physical, occupational, respiratory, speech, nutritional services, prosthetics and orthotics. Given her complex medical condition and risks for more complications, rehabilitation services cannot be provided at a low level of care such as a snf facility. PLAN: 1. Admit to [facility] for an inpatient therapy to include the following disciplines: A. Physical therapy to improve gait, all transfer skills and bed mobility to a modified independent level. B. Occupational therapy to improve activities of daily living to a modified independent level. C. Case management to assist with discharge planning and placement options. D. Nutrition to assist with nutritional needs. E. Rehabilitation nursing to assist in monitoring the patient's underlying medical conditions and to assist with any type of bowel or bladder management. 2. The patient's current medications and medical care will be continued. 3. The patient will be placed on standard fall precautions. 4. The patient's estimated length of stay is approximately 7-10 days. 5. We will watch her H&H closely. We transfuse if this does affect her therapy at all. I am going to follow it up and we will treat appropriately. TRANSINT:[id number] Voice Confirmation ID: [id number] DOCUMENT ID: [id number] SAMUEL notes whether there has been none or any medical/functional HISTORY AND PHYSICAL [id number] KEILA KENT change since admission: - No change since preadmission screen. SAMUEL attests patient continues to be appropriate for IRF: - Continues to be appropriate. MAO CROWE MD at 1219 CC: [id number] DICTATION DATE: 09/24/18 0937 MORTGAGE LOAN ASSISTANT: 09/24/[address] [facility] [address] [place] [address]
--- NOTE | 2018-10-05 17:12 | NUR ---
PT RESTING IN BED WITH EYES OPEN CALL LIGHT IN REACH NO PROBLEMS WILL MONITER
[2018-10-05 19:30] VITALS: BP 130/57
--- NOTE | 2018-10-05 20:15 | NUR ---
GREETED PATIENT AND ASSISTED BACK TO BED FROM WHEELCHAIR. PATIENT REPOSITIONED FOR COMFORT. DENIES ANY FURHTER NEEDS AT THIS TIME. CALL LIGHT IN REACH.
--- NOTE | 2018-10-06 00:15 | NUR ---
ASSISTED PATIENT TO BATHROOM USING WHEELCHAIR. BACK TO BED AND REPOSITIONED FOR COMFORT. CALL LIGHT IN REACH.
--- NOTE | 2018-10-06 02:57 | NUR ---
PATIENT ASLEEP WITH EYES CLOSED LAYING IN SUPINE POSITION. HOB AT 20 DEGREES. RESPIRATIONS EVEN. NO SIGNS OF DISTRESS. CALL LIGHT IN REACH.
[2018-10-06 08:00] VITALS: BP 130/60
--- NOTE | 2018-10-06 18:25 | NUR ---
HAS BEEN VERY SLEEPY TODAY. WILL AROUSE TO LOUD VERBAL STEMULI. V/S 105/54, HR 95, 20, 97% ON RA. STILL IN ROOM WITH PT. SHE WAS TOILETED AND SAT IN WC FOR SUPPER. SHE IS MORE ALERT SITTING UP. INCONT OF URINE.
--- NOTE | 2018-10-06 19:34 | NUR ---
PATIENT SITTING IN WHEELCHAIR JUST FINISHING HER SUPPER.
[2018-10-06 19:41] VITALS: BP 126/57
--- NOTE | 2018-10-06 20:00 | NUR ---
ASSISTED PATIENT TO BED USING WHEELCHAIR AND TWO PERSON ASSIST. PATIENT IS VERY LETHARGIC THIS EVENING. IS ORIENTATED X 4 BUT SLOW TO RESPOND TO QUESTIONS ANSWERED. LILY.
--- NOTE | 2018-10-06 21:38 | NUR ---
PATIENTS EVENING MEDICATION NOT ADMINISTERED. PATIENT IS CONTINUING TO BE LETHARGIC. WCTM.
--- NOTE | 2018-10-06 22:40 | NUR ---
CONTACTED DR. GARCIA SPEECH LANGUAGE PATHOLOGIST TRAVEL SERVICE TO REPORT PATIENT CHANGE IN MENTAL STATUS.
--- NOTE | 2018-10-06 22:48 | NUR ---
TONI TRAYLOR CONTACTED ME AND GAVE ME INSTRUCTIONS FOR CARE OF PATIENT. INSTRUCTED TO REMOVE DURAGESIC PATCH, DC DURAGESIC PATCH AND DC NORCO Q6, AND TO MAKE NOTE FOR DR. CROWE TO ASSESS PATIENT TOMORROW MORNING.
--- NOTE | 2018-10-06 22:58 | NUR ---
PATIENTS DURAGESIC PATCH REMOVED AND SITE CLEANED WITH WARM CLOTH TO REMOVE ANY REMAINING RESIDE.
--- NOTE | 2018-10-06 23:13 | NUR ---
PATIENTS FINGER STICK BLOOD SUGAR IS 140.
--- NOTE | 2018-10-07 00:11 | NUR ---
PATIENT STILL LETHARGIC AFTER REMOVAL OF DURAGESIC PATCH. HAVE TO CONTINUOUSLY CUE PATIENT TO OPEN HER EYES AND SQUEEZE MY HANDS. VITAL SIGNS RETAKEN - BP 110/61, RR-16, P-95, SP02-94, T-100.3. WCTM.
--- NOTE | 2018-10-07 01:10 | NUR ---
PATIENT STILL LETHARGIC AND HAS TO HAVE SEVERAL CUES TO OPEN EYES AND SQUEEZE MY HANDS. WCTM.
--- NOTE | 2018-10-07 01:20 | NUR ---
WENT INTO PATIENTS ROOM WITH CHARGE NURSE AND FOUND IN PATIENTS BEDSIDE DRESSER THAT SHE HAD THE FOLLOWING MEDICATIONS DICO/LIDO/PENTOX CREAM AND A BOTTLE OR CBD/HEMP TABLETS. MEDICATIONS WHERE REMOVED FROM PATIENTS ROOM AND PUT IN CASSETTE AT NURSES DESK.
--- NOTE | 2018-10-07 02:05 | NUR ---
PATIENT STILL ASLEEP. RESPIRATIONS EVEN. WCTM.
--- NOTE | 2018-10-07 02:56 | NUR ---
PATIENT AWAKE AND ASSISTED TO BATHROOM USING WHEELCHAIR AND TWO PERSON ASSIST. PATIENT IS NOW ASKING FOR PAIN MEDICATION AND I EXPLAINED TO HER THAT PAIN MEDICATION HAD BEEN DC BY GREENS PLANTER AND THAT SHE W0ULD NEED TO BE REEVALUATED TOMORROW MORNING BEFORE ANY PAIN MEDICATION COULD BE ADMINISTERED.
--- NOTE | 2018-10-07 03:09 | NUR ---
PATIENT BACK TO BED AND REPOSTIONED FOR COMFORT. CALL LIGHT IN REACH
--- NOTE | 2018-10-07 04:44 | NUR ---
PATIENT LAYING IN BED RESTING QUIETLY WITH EYES CLOSED. PATIENT IS ALERT TO TOUCH AND COMMANDS. CALL LIGHT IN REACH.
[2018-10-07] MEDS ORDERED: PERCOCET 5-3251 TAB PO (08:44)
--- NOTE | 2018-10-07 09:32 | NUR ---
PATIENT DISCHARGING TO [facility] VIA PRIVATE CAR WITH SPOUSE. NO HOME HEALTH OR DME NEEDED AT THIS TIME. AN APPOINTMENT WITH DR. CARBALLO WILL BE MADE AT TIME OF DISCHARGE FROM FACILITY. DR. AVILA 10/11/18 @ 1:15. PATIENT CHOICE FORM FOR SNF AND IMFM FORMS SIGNED, COPIES GIVEN TO SPOUSE AND FILED IN CHART. DISCHARGE INSTRUCTIONS WITH FIM DATA FAXED TO PCP AND TO SNF.
== END 2018-10-07 14:10 | DRG 556 ==
LOC: D.REHAB 19:17
PROVIDERS: ADMIT Emergency Medicine
DX: M25.561 Pain in right knee (principal); D62 Acute posthemorrhagic anemia; S76.111D Strain of right quadriceps muscle, fascia and tendon, subsequent encounter; R26.9 Unspecified abnormalities of gait and mobility; R53.1 Weakness; I10 Essential (primary) hypertension; G89.29 Other chronic pain; K25.9 Gastric ulcer, unspecified as acute or chronic, without hemorrhage or perforation

== ENCOUNTER 2018-10-22 17:09 | Inpatient (IN) | payer MEDICARE, OTHER ==
[~2018-10-22] VITALS: Ht 162.6 cm; Wt 63.5 kg
[~2018-10-22 17:09] MED LIST changes: +COLACE100 MG PO; -DOC-Q-LACE PO; +DULCOLAX PO; +ZOFRAN4 MG PO
[2018-10-22 17:49] LABS: APPEARANCE HAZY (CLEAR); BILIRUBIN NEGATIVE (NEGATIVE); COLOR YELLOW (YELLOW); GLUCOSE NEGATIVE (NEGATIVE); KETONE NEGATIVE (NEGATIVE); NITRITE NEGATIVE (NEGATIVE); PROTEIN NEGATIVE (NEGATIVE); SPECIFIC GRAVITY 1.015 (1.005-1.020); UROBILINOGEN NORMAL (NORMAL)
[2018-10-22 17:50] LABS: EPITHELIAL CELLS 0-5 /hpf (0-5); RED CELLS - URINE RARE /hpf (0-5); WHITE CELLS - URINE 0-5 /hpf (0-5)
[2018-10-22 18:32] LABS: BASOPHILS 0.1 % (0-2); EOSINOPHILS 0 % (0-7); HEMATOCRIT 26.2 % (36.0-48.0); HEMOGLOBIN 8.5 g/dL (12-16); IMMATURE GRANULOCYTES 0.4 % (0-5); MCH 27.5 pg (26.0-34.0); MCHC 32.4 g/dL (31.0-37.0); MCV 84.8 fL (80.0-100.0); MONOCYTES 5.4 % (2-11); NEUTROPHILS 90.1 % (40-80); PLATELET COUNT 199 10x3/uL (130-400); RBC 3.09 10x6/uL (4.00-5.40); RDW 14.2 % (11.5-14.5); WBC 10.2 10x3/uL (4.8-10.8)
[2018-10-22 18:48] LABS: ALBUMIN 2.4 g/dL (3.4-5.0); ANION GAP 11.4 mmol/L (8-16); BILIRUBIN - TOTAL 0.27 mg/dL (0.2-1.3); C-REACTIVE PROTEIN 7.9 mg/dL (0.0-0.9); CALCIUM 7.8 mg/dL (8.5-10.1); CARBON DIOXIDE 26.1 mmol/L (21.0-32.0); CREATININE - SERUM 0.9 mg/dL (0.6-1.3); MAGNESIUM - SERUM 1.5 mg/dL (1.8-2.4); POTASSIUM - SERUM 3.5 mmol/L (3.5-5.1)
--- NOTE | 2018-10-22 19:10 | NUR ---
PT SLEEPING, NO S/S OF ACUTE DISTRESS NOTED AT THIS TIME.
--- NOTE | 2018-10-22 19:25 | NUR ---
PT LEFT ED VIA STRETCHER FOR CT.
[2018-10-22 19:31] LABS: ERYTHROCYTE SEDIMENTATION RATE 64 mm/hr (0-30)
--- NOTE | 2018-10-22 20:05 | NUR ---
PT ALERT, ORIENTED. NO S/S OF ACUTE DISTRESS NOTED. PT SPOUSE AT BEDSIDE. PT TEMP 99.6
--- NOTE | 2018-10-22 22:00 | NUR ---
PT ARRIVED ON UNIT VIA STRETCHER ESCORTED BY ER STAFF. TRANSFERRED TO BED AND POSITIONED FOR COMFORT. ORIENTED TO ROOM AND CALL LIGHT. YELLOW GOWN, YELLOW BRACELET, AND BARBER BED ALARM PLACED FOR FALL PRECAUTIONS. STARTED IV FLUIDS PER ORDER. VANC IVPB CONTINUED FROM ER. SIDE RAILS UP X2 FOR SAFETY.
[2018-10-22 22:59] VITALS: BP 94/46; BMI 24.0
[2018-10-22] MEDS ORDERED: AUGMENTIN 875-11 TAB PO (23:18)
[2018-10-22] MEDS ORDERED: VITAMIN D31000 UNI2 PO (23:19)
[2018-10-22] MEDS ORDERED: MULTI-DAY VITAM1 TAB PO (23:36)
[2018-10-22] MEDS ORDERED: DULCOLAX STOOL100 MG PO (23:42)
[2018-10-22] MEDS ORDERED: ASCORBIC ACID500 MG PO (23:44)
[2018-10-22] MEDS ORDERED: ZINC-220220 MG PO (23:45)
--- NOTE | 2018-10-22 23:48 | NUR ---
MED REC COMPLETE. ADMISSION ASSESSMENT AND HISTORY COMPLETE.
[2018-10-23] VITALS (8 sets, daily range): BP systolic 98–124; BP diastolic 40–57
--- NOTE | 2018-10-23 00:51 | NUR ---
ASSISTED PT UP TO USE BSC TO VOID...2 PERSON ASSIST. PT VOIDED 350 ML YELLOW URINE. POSITIONED BACK IN BED FOR COMFORT. SIDE RAILS UP X2 AND BED ALARM IN USE FOR SAFETY.
--- NOTE | 2018-10-23 01:16 | NUR ---
GAVE MORPHINE 2 MG IVP FOR C/O PAIN IN RIGHT KNEE AT LEVEL 7/10. WILL MONITOR FOR EFFECTIVENESS. BED ALARM IN USE FOR SAFETY.
--- NOTE | 2018-10-23 03:50 | NUR ---
GAVE MORPHIN 2 MG IVP PER REQUEST FOR PAIN AT LEVEL 7/10. WILL MONITOR FOR EFFECTIVENESS. SIDE RAILS UP X2 FOR SAFETY.
[2018-10-23 05:39] LABS: BASOPHILS 0.1 % (0-2); EOSINOPHILS 1.3 % (0-7); HEMATOCRIT 25.2 % (36.0-48.0); IMMATURE GRANULOCYTES 0.1 % (0-5); LYMPHOCYTES 9.2 % (15-50); MCH 27.3 pg (26.0-34.0); MCHC 31.7 g/dL (31.0-37.0); MEAN PLATELET VOLUME 8.2 fL (7.4-10.4); MONOCYTES 9.8 % (2-11); NEUTROPHILS 79.5 % (40-80); PLATELET COUNT 212 10x3/uL (130-400); RBC 2.93 10x6/uL (4.00-5.40); RDW 14.3 % (11.5-14.5)
[2018-10-23 05:43] LABS: WBC 6.8 10x3/uL (4.8-10.8)
[2018-10-23 06:02] LABS: CALC OSMOLALITY 270 mosm/kg (275-300); CALCIUM 8.2 mg/dL (8.5-10.1); CARBON DIOXIDE 24.6 mmol/L (21.0-32.0); CHLORIDE - SERUM 103 mmol/L (98-107); GLUCOSE 112 mg/dL (74-106); POTASSIUM - SERUM 3.4 mmol/L (3.5-5.1); SODIUM 135 mmol/L (136-145); UREA NITROGEN 13 mg/dL (7-18)
[2018-10-23 06:05] LABS: CREATININE - SERUM 0.5 mg/dL (0.6-1.3); eGFR NON AFRICAN AMERICAN > 90 mL/min (90-120)
[2018-10-24] VITALS (7 sets, daily range): BP systolic 122–149; BP diastolic 59–79; Ht 162.6 cm; Wt 63.5 kg
[2018-10-24 07:04] LABS: BASOPHILS 0.3 % (0-2); EOSINOPHILS 2.1 % (0-7); HEMATOCRIT 29.6 % (36.0-48.0); IMMATURE GRANULOCYTES 0.3 % (0-5); MCH 28.2 pg (26.0-34.0); MCHC 33.1 g/dL (31.0-37.0); MCV 85.1 fL (80.0-100.0); MEAN PLATELET VOLUME 8.4 fL (7.4-10.4); MONOCYTES 5.6 % (2-11); NEUTROPHILS 81.7 % (40-80); PLATELET COUNT 190 10x3/uL (130-400); RBC 3.48 10x6/uL (4.00-5.40); RDW 14.4 % (11.5-14.5); WBC 6.8 10x3/uL (4.8-10.8)
[2018-10-24 07:05] LABS: HEMOGLOBIN 9.8 g/dL (12-16)
[2018-10-24 07:20] LABS: CALC OSMOLALITY 278 mosm/kg (275-300); CALCIUM 8.2 mg/dL (8.5-10.1); CARBON DIOXIDE 24.1 mmol/L (21.0-32.0); CHLORIDE - SERUM 105 mmol/L (98-107); GLUCOSE 119 mg/dL (74-106); SODIUM 139 mmol/L (136-145); UREA NITROGEN 13 mg/dL (7-18); eGFR NON AFRICAN AMERICAN 85 mL/min (90-120)
[2018-10-24 07:43] LABS: CREATININE - SERUM 0.7 mg/dL (0.6-1.3)
--- NOTE | 2018-10-24 13:44 | NUR ---
CARE TO ELDA SCHULTE RN @1659
--- NOTE | 2018-10-24 13:45 | NUR ---
CARE ASSUMED FROM LILLIE SONI RN, REPORT RECEIVED. LOUIS BARGER CLAMSHELL OPERATOR AT BEDSIDE FOR POSTOP RLE BLOCK RT AT BEDSIDE FOR POSTOP 12 LEAD
--- NOTE | 2018-10-24 14:15 | NUR ---
REPORT RECEIVED FROM ELDA IN RECOVERY. BRINGING TO FLOOR IN 10 MINUTES.
[2018-10-24 14:46] LABS: MACROPHAGES BF 4 %; NEUT - BF 91 %
--- NOTE | 2018-10-24 15:46 | MORECARE ---
CASE MANAGEMENT DISCHARGE SUMMARY PATIENT: KEILA KENT UNIT: [id number] ADM DATE: 10/22/18 AGE: 83 : 36 SEX: F ROOM/BED: D.2227 AUTHOR: MEGAN HENDERSON PHYSICIAN: REFERRING PHYSICIAN: MARLENE AVILA MD DATE OF SERVICE: 10/24/18 Discharge Plan Patient Name: KEILA KENT [facility] [facility] 1935 Planned Disposition: SNF w Planned Readmission Anticipated Discharge Date: Discharge Date: Expected LOS: Initial Reviewer: [email or web address] Initial Review Date: 10/24/2018 Generated: 10/24/18 4:46 pm DCPIA - Discharge Planning Initial Assessment Updated by [email or web address]: Aleshia Donovan on 10/24/18 3:42 pm * Is the patient Alert and Oriented? Yes * How many steps to enter\exit or inside your home? 0/0 * PCP Dr. Robledo * Pharmacy [facility] on [address] * Preadmission Environment Assisted Facility * Facility Name [facility] * ADLs Partial Dependent * Partial ADLs (Assistance needed) Ambulation * Equipment Rolling Walker Wheelchair * List name and contact numbers for known caregivers / representatives who currently or will assist patient after discharge: Carlos Alberto Kent - [facility] [phone] * Verbal permission to speak to the caregivers and representatives has been obtained from the patient. Yes * Community resources currently utilized None * Additional services required to return to the preadmission environment? No * Can the patient safely return to the preadmission environment? Yes * Has this patient been hospitalized within the prior 30 days at any hospital? Yes External Providers External Provider: [facility] Next Contact Date: Service Request Date: Service Type: Resolution: Reviewer: Comments: Patient Name: KEILA KENT Page [phone] at 1546 All edits/amendments must be made on the electronic document DICTATION DATE: 10/24/18 1545 STEEL POURER HELPER: ANABEL 10/24/18 1540 RPT#: [id number] DC DATE: STATUS: ADM IN [facility] [address] [place] [address] END OF REPORT
--- NOTE | 2018-10-24 15:56 | MORECARE ---
CASE MANAGEMENT DISCHARGE SUMMARY PATIENT: KEILA KENT UNIT: [id number] ADM DATE: 10/22/18 AGE: 83 : 36 SEX: F ROOM/BED: D.2227 AUTHOR: SANTIAGO,DOC PHYSICIAN: REFERRING PHYSICIAN: MARLENE AVILA MD DATE OF SERVICE: 10/24/18 Discharge Plan Patient Name: KEILA KENT Facility: [facility]:[place] : 1935 Planned Disposition: SNF w Planned Readmission Anticipated Discharge Date: Discharge Date: Expected LOS: Initial Reviewer: [email or web address] Initial Review Date: 10/24/2018 Generated: 10/24/18 4:56 pm Comments DCP- Discharge Planning Updated by [email or web address]: Aleshia Donovan on 10/24/18 2:[address] Patient Name: KEILA KENT Admission Status: ER Accout number: [id number] Admission Date: 10-22-2018 : 1935 Admission Diagnosis: Attending: MARLENE AVILA Current LOS: 2 Anticipated DC Date: Planned Disposition: SNF w Planned Readmission Primary Insurance: MEDICARE A & B Discharge Planning Comments: CM met with patient and her in the room to discuss discharge planning. She states she was at [facility] prior to this admission. She plans on returning there on discharge and agrees. States she lives with her in a safe environment and after rehab will return there. No other needs at this time. I called and spoke to Aleshia at [facility] and they will accept her back when medically ready. Aleshia states they do PICC lines and IV antibiotics if she would need this. CM will continue to follow and assist with discharge planning/needs. Diversity Intern: Aleshia Donovan DCPIA - Discharge Planning Initial Assessment Updated by [email or web address]: Aleshia Donovan on 10/24/18 3:42 pm * Is the patient Alert and Oriented? Yes * How many steps to enter\exit or inside your home? 0/0 * PCP Dr. Robledo * Pharmacy [facility] [address] * Preadmission Environment [facility] Facility * Facility Name [facility]note 3[facility] * ADLs Partial Dependent * Partial ADLs (Assistance needed) Ambulation * Equipment Rolling Walker Wheelchair * List name and contact numbers for known caregivers / representatives who currently or will assist patient after discharge: Carlos Alberto Kent - [employer] - [phone] * Verbal permission to speak to the caregivers and representatives has been obtained from the patient. Yes * Community resources currently utilized None * Additional services required to return to the preadmission environment? No * Can the patient safely return to the preadmission environment? Yes * Has this patient been hospitalized within the prior 30 days at any hospital? Yes Last DP export: 10/24/18 2:46 pm Patient Name: KEILA KENT Page [phone] at 1556 All edits/amendments must be made on the electronic document DICTATION DATE: 10/24/181554 CHILDCARE DIRECTOR: ANABEL 10/24/181554 RPT#: [id number] DC DATE: STATUS: ADM IN [facility] [address] [place] [address] END OF REPORT
--- NOTE | 2018-10-24 19:00 | NUR ---
PT IN BED IN LOW FOWLERS POSITION. RESPIRATIONS EVEN AND UNLABORED. VS STABLE AND AFEBRILE. NO VISUAL CUES OF DISTRESS NOTED. WILL CONTINUE TO MONITOR.
[2018-10-25 04:00] VITALS: BP 110/92
[2018-10-25 06:39] LABS: BASOPHILS 0.1 % (0-2); EOSINOPHILS 0.4 % (0-7); HEMATOCRIT 29.6 % (36.0-48.0); HEMOGLOBIN 9.6 g/dL (12-16); IMMATURE GRANULOCYTES 0.3 % (0-5); LYMPHOCYTES 8.7 % (15-50); MCH 27.7 pg (26.0-34.0); MCHC 32.4 g/dL (31.0-37.0); MCV 85.5 fL (80.0-100.0); MEAN PLATELET VOLUME 8.5 fL (7.4-10.4); MONOCYTES 5.4 % (2-11); NEUTROPHILS 85.1 % (40-80); PLATELET COUNT 177 10x3/uL (130-400); RBC 3.46 10x6/uL (4.00-5.40); RDW 14.4 % (11.5-14.5); WBC 6.8 10x3/uL (4.8-10.8)
[2018-10-25 07:03] LABS: CALC OSMOLALITY 278 mosm/kg (275-300); CALCIUM 8.2 mg/dL (8.5-10.1); CARBON DIOXIDE 23.3 mmol/L (21.0-32.0); CHLORIDE - SERUM 103 mmol/L (98-107); CREATININE - SERUM 0.7 mg/dL (0.6-1.3); GLUCOSE 128 mg/dL (74-106); MAGNESIUM - SERUM 1.7 mg/dL (1.8-2.4); POTASSIUM - SERUM 3.6 mmol/L (3.5-5.1); SODIUM 139 mmol/L (136-145); UREA NITROGEN 9 mg/dL (7-18); eGFR NON AFRICAN AMERICAN 85 mL/min (90-120)
[2018-10-25 09:24] VITALS: BP 160/79
[2018-10-25 12:00] VITALS: BP 156/75
--- NOTE | 2018-10-25 17:25 | NUR ---
APPLIED PSYCHOLOGY CHAIR NOTE- IMMOBILIZER TO RIGHT LEG. HAS GOTTEN UP TO THE BEDSIDE COMMODE. HAS NO CO PAIN. IV IN LFA NS AT 100. CDI, ORANGE CAPS IN PLACE NO DISCOMFORT AT THIS TIME.
[2018-10-25 17:43] VITALS: BP 160/75
[2018-10-25 20:00] VITALS: BP 128/56
--- NOTE | 2018-10-25 21:00 | NUR ---
LYING IN BED. ALERT AND ORIENTED X4. RESP EVEN AND NONLABORED. BBS CTA. O2 @ 3L/NC. [place]. 1+ EDEMA NOTED TO LUE THAT IS ELEVATED ON PILLOW. NS @ 50 ML/HR INFUSING IN LT WRIST WITHOUT DIFF. DRSG NOTED TO RT KNEE WITH IMMOBILIZER IN USE. REPORTS PAIN IN RT KNEE. SR ELEVATED X2. CL IN REACH. BARBER ALARM IN USE FOR PT SAFETY.
--- NOTE | 2018-10-25 21:01 | NUR ---
MEDICATED WTIH NORCO FOR C/O PAIN IN RT KNEE. CL IN REACH.
--- NOTE | 2018-10-26 00:55 | NUR ---
HAS RESTED WELL SO FAR TONIGHT. CL IN REACH.
[2018-10-26 04:00] VITALS: BP 140/74
[2018-10-26 05:55] LABS: BASOPHILS 0.2 % (0-2); EOSINOPHILS 2.1 % (0-7); HEMOGLOBIN 8.6 g/dL (12-16); IMMATURE GRANULOCYTES 0.2 % (0-5); LYMPHOCYTES 15.7 % (15-50); MCH 27.4 pg (26.0-34.0); MCHC 31.9 g/dL (31.0-37.0); MEAN PLATELET VOLUME 8.6 fL (7.4-10.4); MONOCYTES 11.4 % (2-11); NEUTROPHILS 70.4 % (40-80); PLATELET COUNT 146 10x3/uL (130-400); RBC 3.14 10x6/uL (4.00-5.40); RDW 14.2 % (11.5-14.5)
[2018-10-26 06:07] LABS: CALC OSMOLALITY 277 mosm/kg (275-300); CALCIUM 7.9 mg/dL (8.5-10.1); CARBON DIOXIDE 25.2 mmol/L (21.0-32.0); CHLORIDE - SERUM 104 mmol/L (98-107); CREATININE - SERUM 0.6 mg/dL (0.6-1.3); GLUCOSE 92 mg/dL (74-106); MAGNESIUM - SERUM 1.6 mg/dL (1.8-2.4); POTASSIUM - SERUM 3.2 mmol/L (3.5-5.1); SODIUM 140 mmol/L (136-145); UREA NITROGEN 9 mg/dL (7-18); eGFR NON AFRICAN AMERICAN > 90 mL/min (90-120)
[2018-10-26 06:38] LABS: WBC 4.2 10x3/uL (4.8-10.8)
[2018-10-26 09:51] VITALS: BP 153/72
--- NOTE | 2018-10-26 12:56 | NUR ---
NUTRITION F/U PT UP TO CHAIR. REPORTS SHE IS "EATING OKAY". WILL ADD NUTRITIONAL SUPPLEMENTS TO MEALS. RD FOLLOWING
[2018-10-26 14:03] VITALS: BP 119/56
[2018-10-26 17:59] VITALS: BP 146/78
--- NOTE | 2018-10-26 19:30 | NUR ---
PT SITTING UP IN BED W/O DISTRESS. ALERT AND ORIENTED. ASSISTED TO BEDSIDE COMMODE AND BACK TO BED. BARBER ALARM ON. PT STATES PAIN IN LEG 06/01 AND STATES SHE HAS AN UPSET STOMACH FROM EATING TOO MUCH. GAVE NORCO AND ZOFRAN ORDERED. RIGHT LEG IN IMMOBILIZER. IV LEFT WRIST INFUSING NS @ 50. NO OTHER NEEDS AT THIS TIME. CL IN REACH, WILL CONTINUE TO MONITOR
[2018-10-26 20:00] VITALS: BP 144/76
[2018-10-27 04:00] VITALS: BP 162/70
[2018-10-27 05:48] LABS: BASOPHILS 0.2 % (0-2); EOSINOPHILS 4.4 % (0-7); HEMATOCRIT 26.6 % (36.0-48.0); HEMOGLOBIN 8.7 g/dL (12-16); IMMATURE GRANULOCYTES 0.2 % (0-5); LYMPHOCYTES 14.7 % (15-50); MCH 27.9 pg (26.0-34.0); MCHC 32.7 g/dL (31.0-37.0); MCV 85.3 fL (80.0-100.0); MEAN PLATELET VOLUME 8.6 fL (7.4-10.4); MONOCYTES 9.6 % (2-11); NEUTROPHILS 70.9 % (40-80); PLATELET COUNT 145 10x3/uL (130-400); RBC 3.12 10x6/uL (4.00-5.40); RDW 14.1 % (11.5-14.5); WBC 4.1 10x3/uL (4.8-10.8)
[2018-10-27 06:05] LABS: CALC OSMOLALITY 278 mosm/kg (275-300); CALCIUM 7.9 mg/dL (8.5-10.1); CARBON DIOXIDE 26.2 mmol/L (21.0-32.0); CHLORIDE - SERUM 104 mmol/L (98-107); CREATININE - SERUM 0.7 mg/dL (0.6-1.3); GLUCOSE 115 mg/dL (74-106); MAGNESIUM - SERUM 1.6 mg/dL (1.8-2.4); POTASSIUM - SERUM 3.3 mmol/L (3.5-5.1); SODIUM 139 mmol/L (136-145); UREA NITROGEN 12 mg/dL (7-18); eGFR NON AFRICAN AMERICAN 85 mL/min (90-120)
[2018-10-27 08:48] VITALS: BP 157/71
--- NOTE | 2018-10-27 10:29 | NUR ---
COMMERCIAL LEASING AGENT CAME TO DRAW A POTASSIUM RECHECK. PT STATED TO COMMERCIAL LEASING AGENT THAT SHE NEVER TOOK HER POTASSIUM THIS MORNING WHEN IT WAS GIVEN DUE TO AND UPSET STOMACH. STATED THE NURSE CRUSHED IT AND PLACED IT IN ORANGE JUICE. I SAW NO EVIDENCE OF EITHER A POTASSIUM PILL OR ORANGE JUICE, DURNING 9AM MED PASS, AND ON THE OCT IT SHOWS WHERE THE MEDICATION WAS ADMINISTERED. INSTRUCTED THE LAB TO DRAW THE LABS ORDERED BEC I WOULD NEED A NEW LAB VALUE TO JUSTIFY ADMINISTERING ADDITIONAL POTASSIUM AT THIS TIME. EXPLAINED TO THE PATIENT WHY THE LAB DRAW WAS NECESSARY. PT AND FAMILY VERABLIZE UNDERSTANDING
--- NOTE | 2018-10-27 13:38 | OP ---
PATIENT NAME: KEILA KENT MEDICAL RECORD: [id number] :[birth year] LOCATION:[facility] [place] ADMISSION DATE:10/22/18 SURGEON: MARLENE AVILA MD DATE OF OPERATION: 10/24/2018 PREOPERATIVE DIAGNOSIS: Infected knee, right. POSTOPERATIVE DIAGNOSIS: Infected knee, right. PROCEDURE: Excisional debridement of infected knee to include skin; subcutaneous tissue; portions of fat, fascia, muscle, and bone; prior placed hardware; and graft. SURGEON: Marlene Avila MD TAIL PULLER: LIZBETH Diamond INTRAOPERATIVE COMPLICATIONS: Essentially none. 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 The components were not removed today. Polyethylene was not swapped today as the patient had very foreign total knee arthroplasty to this OR; however, infection has only been present for relatively few days. INDICATIONS: Ms. Kent is a patient who initially presented with complete breakdown of her patellar mechanism. [place] cables were around the superior pole of the patella and through the tibial tuberosity, which had broken. The patient had multiple recurrent falls as well as quad giveaway. The procedure done prior was to try and restore her quadriceps mechanism i.e., patella tendon reconstruction. Unfortunately, this has become infected. OPERATIVE SUMMARY IN DETAIL: After obtaining the appropriate preoperative orthopedic surgery consent as well as anesthetic consultation, evaluation, and clearance, the patient was brought to the operating room and placed on the operating table in the supine position. After adequate general laryngeal mask was administered, the patient's right lower extremity was prepped and draped in routine sterile fashion. An incision was made in the previously placed incision with purulence noted. Cultures and synovial fluid were taken and sent for synovial fluid analysis as well as aerobic and anaerobic Gram stain. The incision was then carried out. The graft did appear to be completely infected. It was removed from the patella. Screws holding the tibial bone plug in were removed and the entire bony portion of the graft was removed. Curettage was carried out of the bone underneath it. Pulsatile lavage irrigation was carried out the medial and lateral gutters as well and in and around the prosthesis itself. The decision was made not to take the prosthesis out at this time. Having completed this, retention sutures were placed near-far far-near for adequate closure of the knee. Sterile dressings were applied. The patient was awakened and taken to the recovery room in stable condition. All final needle and sponge counts were correct. TRANSINT:[id number] Voice Confirmation ID: [id number] DOCUMENT ID: [id number] OPERATIVE REPORT [id number] KEILA KENT MD, MARLENE BAUER at 1338 CC: [id number] DICTATION DATE: 10/24/18 1326 WELT CUTTER: 10/24/18 1610 ADM IN [place] [id number] [place] [id number]
[2018-10-27 16:47] VITALS: BP 177/77
[2018-10-27 20:00] VITALS: BP 159/77
--- NOTE | 2018-10-27 20:00 | NUR ---
PT SITTING UP IN BED, NO SIGNS OF DISTRESS. ALERT AND ORIENTED. IV LEFT WRIST INFUSING NS @ 50. IMMOBILIZER TO RIGHT KNEE. O2 3L/NC. PT STATES PAIN 12/30. REQUESTS PAIN MED WITH NIGHT TIME MEDS. DENIES OTHER NEEDS AT THIS TIME. CL IN REACH, WILL CONTINUE TO MONITOR
[2018-10-28] VITALS: BP 148/70
[2018-10-28 04:00] VITALS: BP 169/77
[2018-10-28 04:30] LABS: BASOPHILS 0.2 % (0-2); EOSINOPHILS 4.8 % (0-7); HEMATOCRIT 27.1 % (36.0-48.0); HEMOGLOBIN 8.7 g/dL (12-16); IMMATURE GRANULOCYTES 0.2 % (0-5); LYMPHOCYTES 17.2 % (15-50); MCH 27.6 pg (26.0-34.0); MCHC 32.1 g/dL (31.0-37.0); MEAN PLATELET VOLUME 8.9 fL (7.4-10.4); MONOCYTES 8.8 % (2-11); NEUTROPHILS 68.8 % (40-80); PLATELET COUNT 145 10x3/uL (130-400); RBC 3.15 10x6/uL (4.00-5.40); RDW 14.2 % (11.5-14.5); WBC 4.2 10x3/uL (4.8-10.8)
[2018-10-28 04:47] LABS: CALC OSMOLALITY 286 mosm/kg (275-300); CALCIUM 7.9 mg/dL (8.5-10.1); CARBON DIOXIDE 26.1 mmol/L (21.0-32.0); CHLORIDE - SERUM 107 mmol/L (98-107); CREATININE - SERUM 0.7 mg/dL (0.6-1.3); GLUCOSE 111 mg/dL (74-106); MAGNESIUM - SERUM 1.5 mg/dL (1.8-2.4); POTASSIUM - SERUM 3.1 mmol/L (3.5-5.1); SODIUM 144 mmol/L (136-145); UREA NITROGEN 9 mg/dL (7-18); eGFR NON AFRICAN AMERICAN 85 mL/min (90-120)
[2018-10-28 08:47] VITALS: BP 166/88
--- NOTE | 2018-10-28 10:07 | NUR ---
ALERT AND ORIENTED WITH DRESSING AND SPLINT INTACT TO RLE WITH BED ALARM INTACT. O23L N/C AND DENIES ANY SOB. NORCO GIVEN FOR PAIN TO KNEE AND EFFECTIVE. CAP REFILL <3 SEC. ENCOURAGED TO USE CALL LIGHT FOR ASSIST.
[2018-10-28 12:59] VITALS: BP 165/81
[2018-10-28] MEDS ORDERED: ROCEPHIN 2 GM/D5W 50 IV (13:40)
[2018-10-28] MEDS ORDERED: LOVENOX40 MG/0.4 SC (13:40)
[2018-10-28] MEDS ORDERED: PERCOCET 10-321 EAC1 PO (13:41)
--- NOTE | 2018-10-28 13:45 | MORECARE ---
CASE MANAGEMENT DISCHARGE SUMMARY PATIENT: KEILA KENT UNIT: [id number] ADM DATE: 10/22/18 AGE: 83 : 36 SEX: F ROOM/BED: D.2227 AUTHOR: SANTIAGO,DOC PHYSICIAN: REFERRING PHYSICIAN: MARLENE AVILA MD DATE OF SERVICE: 10/28/18 Discharge Plan Patient Name: KEILA KENT Facility: [facility]:[place] : 1935 Planned Disposition: SNF w Planned Readmission Anticipated Discharge Date: Discharge Date: Expected LOS: Initial Reviewer: [email or web address] Initial Review Date: 10/24/2018 Generated: 10/28/18 2:45 pm Comments DCP- Discharge Planning Updated by [email or web address]: Keke Fry on 10/28/18 12:[address] Patient will be discharging back to [facility] to a Skilled bed. I spoke with Leann at [facility] and rig supervisor time has been scheduled for 3:30 pm DCP- Discharge Planning Updated by [email or web address]: Aleshai Donovan on 10/24/18 2:[address] Patient Name: KEILA KENT Admission Status: ER Accout number: [id number] Admission Date: 10-22-2018 : 1935 Admission Diagnosis: Attending: MARLENE AVILA Current LOS: 2 Anticipated DC Date: Planned Disposition: SNF w Planned Readmission Primary Insurance: MEDICARE A & B Discharge Planning Comments: CM met with patient and her in the room to discuss discharge planning. She states she was at [facility] and rehab skilled facility prior to this admission. She plans on returning there on discharge and agrees. States she lives with her in a safe environment and after rehab will return there. No other needs at this time. I called and spoke to Aleshia at [facility] and they will accept her back when medically ready. Aleshia states they do PICC lines and IV antibiotics if she would need this. CM will continue to follow and assist with discharge planning/needs. Warp Spinner: Aleshia Donovan DCPIA - Discharge Planning Initial Assessment Updated by [email or web address]: Aleshia Donovan on 10/24/18 3:42 pm * Is the patient Alert and Oriented? Yes * How many steps to enter\exit or inside your home? 0/0 * PCP Dr. Robledo * Pharmacy [facility] [address] * Preadmission Environment Residential Facility * Facility Name [facility] * ADLs Partial Dependent * Partial ADLs (Assistance needed) Ambulation * Equipment Rolling Walker Wheelchair * List name and contact numbers for known caregivers / representatives who currently or will assist patient after discharge: Carlos Alberto Kent - [facility] - [phone] * Verbal permission to speak to the caregivers and representatives has been obtained from the patient. Yes * Community resources currently utilized None * Additional services required to return to the preadmission environment? No * Can the patient safely return to the preadmission environment? Yes * Has this patient been hospitalized within the prior 30 days at any hospital? Yes Last DP export: 10/24/18 2:56 pm Patient Name: KEILA KENT Page 66688 at 1345 All edits/amendments must be made on the electronic document DICTATION DATE: 10/28/18 1345 MANAGER ENTERPRISE CONTENT MANAGEMENT: ANABEL 10/28/18 1345 RPT#: [id number] DC DATE: STATUS: ADM IN [facility] [address] [place] [address] END OF REPORT
--- NOTE | 2018-10-28 14:14 | MORECARE ---
CASE MANAGEMENT DISCHARGE SUMMARY PATIENT: KEILA KENT UNIT: [id number] ADM DATE: 10/22/18 AGE: 83 : 36 SEX: F ROOM/BED: D.2227 AUTHOR: SANTIAGO,DOC PHYSICIAN: REFERRING PHYSICIAN: MARLENE AVILA MD DATE OF SERVICE: 10/28/18 Discharge Plan Patient Name: KEILA KENT Facility: [facility]:[place] : 1935 Planned Disposition: SNF w Planned Readmission Anticipated Discharge Date: Discharge Date: Expected LOS: Initial Reviewer: [email or web address] Initial Review Date: 10/24/2018 Generated: 10/28/18 3:14 pm Comments DCP- Discharge Planning Updated by [email or web address]: Keke Fry on 10/28/18 12:[address] Patient will be discharging back to [facility] to a Skilled bed. I spoke with Leann at [facility] and grain picker time has been scheduled for 3:30 pm DCP- Discharge Planning Updated by [email or web address]: Aleshia Donovan on 10/24/18 2:[address] Patient Name: KEILA KENT Admission Status: ER Accout number: [id number] Admission Date: 10-22-2018 : 1935 Admission Diagnosis: Attending: MARLENE AVILA Current LOS: 2 Anticipated DC Date: Planned Disposition: SNF w Planned Readmission Primary Insurance: MEDICARE A & B Discharge Planning Comments: CM met with patient and her in the room to discuss discharge planning. She states she was at [facility] and rehab skilled facility prior to this admission. She plans on returning there on discharge and agrees. States she lives with her in a safe environment and after rehab will return there. No other needs at this time. I called and spoke to Aleshia at [facility] and they will accept her back when medically ready. Aleshia states they do PICC lines and IV antibiotics if she would need this. CM will continue to follow and assist with discharge planning/needs. Revenue Coordinator: Aleshia Donovan DCPIA - Discharge Planning Initial Assessment Updated by [email or web address]: Aleshia Donovan on 10/24/18 3:42 pm * Is the patient Alert and Oriented? Yes * How many steps to enter\exit or inside your home? 0/0 * PCP Dr. Robledo * Pharmacy [facility] [address] * Preadmission Environment Alf Facility * Facility Name [facility] * ADLs Partial Dependent * Partial ADLs (Assistance needed) Ambulation * Equipment Rolling Walker Wheelchair * List name and contact numbers for known caregivers / representatives who currently or will assist patient after discharge: Carlos Alberto Kent - - [phone] * Verbal permission to speak to the caregivers and representatives has been obtained from the patient. Yes * Community resources currently utilized None * Additional services required to return to the preadmission environment? No * Can the patient safely return to the preadmission environment? Yes * Has this patient been hospitalized within the prior 30 days at any hospital? Yes Coverage Notice Reviewer: [email or web address] Lance Calvo Notice Issued Date-Time: 10/28/2018 13:59 Notice Type: IM Discharge Notice Notice Delivered To: Family Member Relationship to Patient: Spouse Shut Off Worker Name: Delivery Method: HAND - Hand Delivered Katie Days: Prior Verbal Notification: Recipient Understood Notice: Yes Recipient Signature: Yes Med Rec Note Co-signed by Attending: Coverage Notice Comment: Last DP export: 10/28/18 12:45 pm Patient Name: KEILA KENT Page 37902 at 1414 All edits/amendments must be made on the electronic document DICTATION DATE: 10/28/181413 ROD PILER: ANABEL 10/28/18 1414 RPT#: [id number] CT DATE: STATUS: ADM IN [facility] [address] [place] [address] END OF REPORT
--- NOTE | 2018-10-28 14:56 | NUR ---
DRESSING CHANGED TO RT. KNEE WITH NO S/S OF INFECTION NOTED. AWUACELL DRESSING APPLIED
--- NOTE | 2018-10-28 16:37 | NUR ---
PT. DISCHARGED UNDER CARE OF TRANSPORTATION OF [facility] WITH DISCHARGE AND RX GIVEN TO . STABLE AT TIME OF DEPARTURE.VERBALIZED UNDERSTANDING OF DISCHARGE INSTRUCTIONS WITH REPORT CALLED TO TIMMY BELL.
--- NOTE | 2018-10-28 16:59 | MORECARE ---
CASE MANAGEMENT DISCHARGE SUMMARY PATIENT: KEILA KENT UNIT: [id number] ADM DATE: 10/22/18 AGE: 83 : 36 SEX: F ROOM/BED: D.2227 AUTHOR: SANTIAGO,DOC PHYSICIAN: REFERRING PHYSICIAN: MARLENE AVILA MD DATE OF SERVICE: 10/28/18 Discharge Plan Patient Name: KEILA KENT Facility: [facility]:[place] : 1935 Planned Disposition: SNF w Planned Readmission Anticipated Discharge Date: Discharge Date: 10/28/2018 Expected LOS: Initial Reviewer: [id number] Initial Review Date: 10/24/2018 Generated: 10/28/18 5:59 pm Comments DCP- Discharge Planning Updated by [email or web address]: Keke Fry on 10/28/18 12:[address] Patient will be discharging back to [facility] to a Skilled bed. I spoke with Leann at [facility] and pickling operator time has been scheduled for 3:30 pm DCP- Discharge Planning Updated by [email or web address]: Aleshia Donovan on 10/24/18 2:[address] Patient Name: KEILA KENT Admission Status: ER Accout number: [id number] Admission Date: 10-22-2018 : 1935 Admission Diagnosis: Attending: MARLENE AVILA Current LOS: 2 Anticipated DC Date: Planned Disposition: SNF w Planned Readmission Primary Insurance: MEDICARE A & B Discharge Planning Comments: CM met with patient and her in the room to discuss discharge planning. She states she was at [facility] and rehab skilled facility prior to this admission. She plans on returning there on discharge and agrees. States she lives with her in a safe environment and after rehab will return there. No other needs at this time. I called and spoke to Aleshia at [facility] and they will accept her back when medically ready. Aleshia states they do PICC lines and IV antibiotics if she would need this. CM will continue to follow and assist with discharge planning/needs. Perl Software Engineer: Aleshia Donovan DCPIA - Discharge Planning Initial Assessment Updated by [email or web address]: Aleshia Donovan on 10/24/18 3:42 pm * Is the patient Alert and Oriented? Yes * How many steps to enter\exit or inside your home? 0/0 * PCP Dr. Robledo * Pharmacy [facility] [address] * Preadmission Environment Jail Facility * Facility Name [facility] * ADLs Partial Dependent * Partial ADLs (Assistance needed) Ambulation * Equipment Rolling Walker Wheelchair * List name and contact numbers for known caregivers / representatives who currently or will assist patient after discharge: Carlos Alberto Kent - [facility] - [phone] * Verbal permission to speak to the caregivers and representatives has been obtained from the patient. Yes * Community resources currently utilized None * Additional services required to return to the preadmission environment? No * Can the patient safely return to the preadmission environment? Yes * Has this patient been hospitalized within the prior 30 days at any hospital? Yes Coverage Notice Reviewer: [email or web address] Lance Calvo Notice Issued Date-Time: 10/28/2018 13:59 Notice Type: IM Discharge Notice Notice Delivered To: Family Member Relationship to Patient: Spouse Biofuels Product Manager Name: Delivery Method: HAND - Hand Delivered Katie Days: Prior Verbal Notification: Recipient Understood Notice: Yes Recipient Signature: Yes Med Rec Note Co-signed by Attending: Coverage Notice Comment: Last DP export: 10/28/18 1:14 pm Patient Name: KEILA KENT Page 90417 at 1659 All edits/amendments must be made on the electronic document DICTATION DATE: 10/28/181657 STRIP CUTTING MACHINE OPERATOR: ANABEL 10/28/181657 RPT#: [id number] DC DATE:10/28/18 STATUS: DIS IN [facility] [address] [place] [address] END OF REPORT
== END 2018-10-28 16:39 | DRG 857 ==
LOC: D.ER 17:09 → D.MS 21:28
PROVIDERS: Family Medicine; Internal Medicine Nephrology; ADMIT Orthopaedic Surgery; ATTEND Orthopaedic Surgery
PROC: 05HY33Z Insertion of Infusion Device into Upper Vein, Percutaneous Approach (ICD-10-PCS; 2018-10-22)
PROC: 0YP90YZ Removal of Other Device from Right Lower Extremity, Open Approach (ICD-10-PCS; 2018-10-24)
PROC: 0JBN0ZZ Excision of Right Lower Leg Subcutaneous Tissue and Fascia, Open Approach (ICD-10-PCS; principal; 2018-10-24 16:15)
PROC: 0YP Anatomical Regions, Lower Extremities, Removal (ICD-10-PCS; 2018-10-24 16:15)
DX: T81.40XA Infection following a procedure, unspecified, initial encounter (principal); M00.9 Pyogenic arthritis, unspecified; I10 Essential (primary) hypertension; E87.6 Hypokalemia; E83.42 Hypomagnesemia; D64.9 Anemia, unspecified

== ENCOUNTER 2018-11-21 15:46 | Inpatient (IN) | payer MEDICARE, OTHER ==
[~2018-11-21] VITALS: Ht 167.6 cm; Wt 75.3 kg
--- NOTE | ~2018-11-21 | HEMODYNAMI ---
PATIENT:KEILA KENT MEDICAL RECORD: [id number] : 37 LOCATION: D.2220 ADMISSION DATE: 11/21/18 Generatedon:11/22/20188:38 Patient name: KEILA KENT Patient #: [id number] SSN: : 1935 Date of study: 11/22/2018 Page: Of Hemodynamic Procedure Report Patient Data Patient Demographics Procedure consent was obtained First Name: KEILA Gender: Female Last Name: DONTE : 1935 [facility] Initial: NARGIS Age: 83 year(s) Patient #: [id number] Race: Unknown Additional ID: [id number] Contact details Address: [address] [place] [address] [place] State: [place] City: [place] Zip code: [address] Past Medical History Allergies Allergen Reaction Date Comments Reported Other 11/22/2018 KEFLEX,PREDNISONE,SULFA,IBUPROFEN,AND allergy MARCAINE Admission Admission Data Admission Date: 11/21/2018 Admission Time: 15:46 Room #: D.2220 Procedure Procedure Types Cath Procedure Peripheral Cath Diagnostic Procedure Miscellaneous Joint Aspiration w/US Procedure Description Procedure Date Procedure Date: 11/22/2018 Procedure Start Time: 8:21 Procedure Staff Name Function Joaquin Louis MD Performing Physician Krish Quesada RT Monitor Yasmine Fatima RN Nurse Hemodynamics Rest Pre Cath Intra NCS Post Cath Procedure Log Time Note 8:06:51 Krish Quesada RT (R) (CV) sent for patient. Start room use. 8:07:01 Time tracking: Regular hours (M-F 7:00 - 5:00) 8:07:25 Patient arrived from Med/Surg to IR. Patient remains on bed/stretcher for procedure. 8:07:32 Correct patient and procedure confirmed by team. 8:07:35 Signed procedure consent form obtained from patient. 8:07:37 Full Disclosure recording started 8:07:57 8:07:58 Pre-procedure instructions explained to patient. 8:08:04 Pre-op teaching completed and patient verbalized understanding. 8:08:07 Family unavailable. 8:08:21 Is patient on blood thinner?No 8:09:01 Right Knee was prepped with betadine and draped in sterile fashion. 8:13:09 Patient allergic to Other allergyKEFLEX,PREDNISONE,SULFA,IBUPROFEN,AND MARCAINE 8:20:39 Physician arrived 8:20:40 --------ALL STOP TIME OUT------ 8:20:40 Final Timeout: patient, procedure, and site verified with staff and physician. All members of the team are in agreement. 8:20:46 Right KNEE site verified by team. 8:21:05 Sedation plan: Local Anesthetic Medication:Lidocaine 8:21:19 Procedure started. 8:21:34 Local anesthetic to Right Knee with Lidocaine 1% by Joaquin Louis MD.INITIAL ACCESS ONLY 8:21:49 SAFE-T PLUS MYELOGRAM TRAY opened to sterile field. 8:37:15 Procedure ended.(Physican Out) 8:37:51 Post Right Knee:stable 8:38:15 BANDAIDE APPLIED TO RT.KNEE.SITE STABLE PT SENT TO ROOM Device Usage Item Name Manufacture Quantity Catalog Hospital Part Current Minimal Lot# / Number Charge Number Stock Stock Serial# Code SAFE-T [employer] 1 [id number] PLUS MYELOGRAM TRAY Signature Audit [place] Stage Time Signature Unsigned Intra-Procedure 11/22/2018 Krish 8:38:36 AM Sangita RT (R) (CV) Signatures Monitor : Krish Signature : Sangita RT Date : Time : [place] [id number]
[~2018-11-21 15:46] MED LIST changes: +ASCORBIC ACID500 MG PO; +AUGMENTIN 875-11 TAB PO; +DULCOLAX STOOL100 MG PO; +LOVENOX40 MG/0.4 SC; +MULTI-DAY VITAM1 TAB PO; +PERCOCET 10-321 EAC1 PO; +ROCEPHIN 2 GM/D5W 50 IV; +VITAMIN D31000 UNI2 PO; +ZINC-220220 MG PO
--- NOTE | 2018-11-21 16:00 | NUR ---
TO ROOM [address] LUCERO OFFICE. PT IS VERY DROWSY AND UNABLE TO ANSWER QUESTIONS. GIVING ADMIT INFORMATION. ASSESSMENT PER FLOW SHEET. FALL PREVENTION WITH BARBER MAT. DOOR OPEN
[2018-11-21 16:49] LABS: BASOPHILS 0.2 % (0-2); EOSINOPHILS 0 % (0-7); HEMATOCRIT 31.3 % (36.0-48.0); IMMATURE GRANULOCYTES 0.2 % (0-5); MCH 27.5 pg (26.0-34.0); MCHC 31.9 g/dL (31.0-37.0); MEAN PLATELET VOLUME 8.4 fL (7.4-10.4); MONOCYTES 4.8 % (2-11); NEUTROPHILS 89.8 % (40-80); PLATELET COUNT 130 10x3/uL (130-400); RBC 3.64 10x6/uL (4.00-5.40); RDW 14.9 % (11.5-14.5); WBC 4.8 10x3/uL (4.8-10.8)
[2018-11-21 16:58] LABS: ANION GAP 16.8 mmol/L (8-16); C-REACTIVE PROTEIN 8.8 mg/dL (0.0-0.9); CALCIUM 8.4 mg/dL (8.5-10.1); CARBON DIOXIDE 26.9 mmol/L (21.0-32.0); POTASSIUM - SERUM 3.7 mmol/L (3.5-5.1)
[2018-11-21 18:17] LABS: ERYTHROCYTE SEDIMENTATION RATE 50 mm/hr (0-30)
[2018-11-21 18:52] VITALS: BP 134/71; BMI 26.8
--- NOTE | 2018-11-21 18:59 | NUR ---
URINE TO LAB ORDERED
--- NOTE | 2018-11-21 20:00 | NUR ---
ASSESSMENT PER FLOWSHEET. LETHARGIC SLOW TO AROUSE. IV PATENT EFT PICC LINE OF 1/2NS AT 50CC'S/HR. HOB UP 35DEGREES. BARBER MAT ON BED AND ACTIVATED. SR UP X2 CALL LIGHT WITHIN REACH. IMMOBILIZER TO RT KNEE OLD INCISION. DOES OT FOLLOW COMMANDS. NON VERBAL.
[2018-11-21 21:35] VITALS: BP 149/74
--- NOTE | 2018-11-22 | NUR ---
EYES CLOSED RESPIRATIONS WITH EASE AND UNLABORED.
--- NOTE | 2018-11-22 02:09 | NUR ---
REPOSITIONED FOR COMFORT SR UP X2 CALL LIGHT WITHINR EACH.
--- NOTE | 2018-11-22 03:19 | NUR ---
AWAKE NOW ALERT TO PLACE KNOWS IT IS [facility] KNOWS WHERE SHE LIVES AND THE DATE. FOLLOWS COMMANDS INSTRUCTED PATIENT GOING TO HAVE A CT SCAN OF HEAD. WILL HAVE TO LIMIT PO INTAKE USED THICKET WITH WATER ALLOWED SIPS TO DRINK.INC URINE COMPLETE BED LINEN CHANGE DONE.
[2018-11-22 04:47] VITALS: BP 121/45
--- NOTE | 2018-11-22 06:33 | NUR ---
MEDS GIVEN PER OCT. RESTING QUIETLY RESPIRATIONS WITH EASE AND UNLABORED.
[2018-11-22 07:11] LABS: BASOPHILS 0.4 % (0-2); EOSINOPHILS 0.8 % (0-7); HEMATOCRIT 28.2 % (36.0-48.0); IMMATURE GRANULOCYTES 0.4 % (0-5); LYMPHOCYTES 15.9 % (15-50); MCH 27.5 pg (26.0-34.0); MCHC 31.9 g/dL (31.0-37.0); MCV 86.2 fL (80.0-100.0); MEAN PLATELET VOLUME 9.3 fL (7.4-10.4); MONOCYTES 9.7 % (2-11); NEUTROPHILS 72.8 % (40-80); PLATELET COUNT 134 10x3/uL (130-400); RBC 3.27 10x6/uL (4.00-5.40); RDW 14.9 % (11.5-14.5)
[2018-11-22 07:17] LABS: WBC 2.6 10x3/uL (4.8-10.8)
[2018-11-22 07:29] LABS: CALCIUM 8.2 mg/dL (8.5-10.1); CARBON DIOXIDE 26.4 mmol/L (21.0-32.0); CHLORIDE - SERUM 97 mmol/L (98-107); MAGNESIUM - SERUM 1.6 mg/dL (1.8-2.4); POTASSIUM - SERUM 3.6 mmol/L (3.5-5.1); SODIUM 133 mmol/L (136-145); UREA NITROGEN 19 mg/dL (7-18); eGFR NON AFRICAN AMERICAN 85 mL/min (90-120)
[2018-11-22 07:33] LABS: CALC OSMOLALITY 268 mosm/kg (275-300); CREATININE - SERUM 0.7 mg/dL (0.6-1.3); GLUCOSE 110 mg/dL (74-106)
--- NOTE | 2018-11-22 07:45 | NUR ---
ASSESSMENT PER FLOW SHEET. PT IS WITHOUT DISTRESS.MONITOR FOR NEEDS.BARBER IN PLACE AND WORKING
[2018-11-22 08:48] VITALS: BP 171/79
[2018-11-22 09:12] VITALS: BP 171/79
[2018-11-22 12:54] VITALS: BMI 26.8
[2018-11-22 13:30] VITALS: Ht 167.6 cm; Wt 75.3 kg
[2018-11-22 14:08] VITALS: BP 132/62
--- NOTE | 2018-11-22 17:24 | CN ---
PATIENT NAME:KEILA KENT MEDICAL RECORD: [id number] : 37 LOCATION:D.MS [place]20 ADMIT DATE: 11/21/18 ACCOUNT: [id number] CONSULTING PHYSICIAN: KYRIE KAUR DO REFERRING PHYSICIAN: MARLENE AVILA MD DATE OF CONSULTATION: 11/21/2018 FAMILY PRACTICE CONSULT HISTORY OF PRESENT ILLNESS: Ms. Kent is an 83-year-old white female that is sent to Dr. Avila's office for confusion. She was seen in followup for a joint infection. She had a left knee surgery with removal of hardware earlier this year. She is currently in a intermediate and she is on IV Rocephin via PICC line. Yesterday, her reports that she started getting more confused. Today, she smiles when I ask her questions, but she is not oriented. He states this is a big change for her. He is unaware of any issues that have occurred at the nursing facility. No falls or anything like that. She has not been running any fever on review today. LABORATORY DATA: Her white count is 4.8, H and H is 10.0 and 31.3 with a platelet count of 130, creatinine is 1.0, BUN is 22, and glucose is 178. Chest x-ray is pending. PAST MEDICAL HISTORY: Significant for sick sinus, thyroid problems, peptic ulcer disease, chronic back pain, skin cancers affected, hardware of left knee, hard of hearing, and hypertension. PAST SURGICAL HISTORY: Include hysterectomy, joint replacement, removal of hardware earlier this year, appendectomy, lumpectomy, laminectomy, and cataract surgery. ALLERGIES: KEFLEX, PREDNISOLONE, SULFA, IBUPROFEN, NITROFURANTOIN, AND MARCAINE. CURRENT MEDICATIONS: Include, 1. Lovenox 40 mg a day. 2. Micardis 80/12.5 one daily. 3. Metoprolol XL 50 mg a day. 4. Doxazosin 8 mg one-half in the morning and one-half in the evening. 5. Gabapentin 300 mg t.i.d. 6. Oxycodone 10/325 one q.6 hours p.r.n. pain. 7. Calcium carbonate with vitamin D. 8. Furosemide 20 mg a day. 9. Potassium chloride t.i.d. 10. Zinc sulfate capsules. 11. Fluticasone nasal spray. 12. Docusate 100 mg daily. 13. Zofran p.r.n. 14. Pantoprazole 40 mg daily. 15. Levothyroxine 25 mcg a day. 16. Vitamin C, B12. 17. Rocephin 2 grams q.24. FAMILY HISTORY: Noncontributory. CONSULT REPORT [id number] KEILA KENT SOCIAL HISTORY: The patient is . [place] Does not smoke or drink. REVIEW OF SYSTEMS: May have had a little low-grade fever in Dr. Avila's office, but none is reported elsewhere, confusion. No chest pain or obvious shortness of breath. No vomiting or diarrhea. PHYSICAL EXAMINATION: GENERAL: Elderly white female who is confused. HEENT: Sclerae nonicteric. Mucous membranes are moist. NECK: Soft and supple. HEART: Regular. LUNGS: With good breath sounds bilaterally. ABDOMEN: Soft. EXTREMITIES: Lower extremities reveal no edema. Left knee incision actually looks good. She has taken out of her knee immobilizer. The wound looks good. There is a little bit of redness, plus no drainage and no obvious signs of infection. IMPRESSION: 1. Confusion, uncertain etiology. 2. Infected joint on IV antibiotics at intermediate. 3. Hypertension. PLAN: We will see in consultation. We will check a CT head. We will check blood cultures and urine cultures. We will obtain UA through in and out catheterization. We will hold oxycodone and gabapentin for now. Check TSH. See orders for rest of plan. TRANSINT:[id number] Voice Confirmation ID: [id number] DOCUMENT ID: [id number] KYRIE KAUR DO at 1724 CC: [id number] DICTATION DATE: 11/21/18 184 ED CASE MANAGER: 11/21/182225 ADM IN [facility] [address] [place] [address]
--- NOTE | 2018-11-22 18:17 | NUR ---
REMAINS WITHOUT DISTRESS. WITHOUT CHANGE.CONT PLAN OF CARE
[2018-11-22 18:36] VITALS: BP 147/52
--- NOTE | 2018-11-22 20:00 | NUR ---
ASSESSMENT PER FLOWSHEET. SR UP X2 CALL LIGHT WITHIN REACH. IV PATENT LEFT AC PICC LINE OF 1/2NS AT 50CC'S/HR.BARBER BED ALARM MAT IN USE. SCD'S IN USE PT ON LOVENOX. MORE ALERT AND ORIENTED.
[2018-11-22 21:12] VITALS: BP 147/69
--- NOTE | 2018-11-22 22:18 | NUR ---
C/O CHRONIC PAIN ALL OVER RATES PAIN LEVEL #4-5. TRAMADOL 50MG TAB ONE PO GIVEN FOR PAIN CONTROL.
--- NOTE | 2018-11-23 | NUR ---
EYES CLOSED RESPIRATIONS WITH EASE AND UNLABORED.
--- NOTE | 2018-11-23 01:12 | NUR ---
INC LARGE SOFT STOOL.
--- NOTE | 2018-11-23 01:15 | NUR ---
COMPLETE BED BATH WITH LINENS CHANGED.
--- NOTE | 2018-11-23 04:30 | NUR ---
PLACED ON BEDPAN VOIDED. REPOSITIONED FOR COMFORT.
[2018-11-23 05:09] VITALS: BP 134/60
[2018-11-23 06:46] LABS: BASOPHILS 0.3 % (0-2); CALCIUM 8.4 mg/dL (8.5-10.1); CARBON DIOXIDE 27.3 mmol/L (21.0-32.0); CHLORIDE - SERUM 93 mmol/L (98-107); CREATININE - SERUM 0.6 mg/dL (0.6-1.3); EOSINOPHILS 1.8 % (0-7); GLUCOSE 119 mg/dL (74-106); HEMATOCRIT 28.9 % (36.0-48.0); HEMOGLOBIN 9.5 g/dL (12-16); LYMPHOCYTES 12.7 % (15-50); MAGNESIUM - SERUM 1.5 mg/dL (1.8-2.4); MCH 27.4 pg (26.0-34.0); MCHC 32.9 g/dL (31.0-37.0); MEAN PLATELET VOLUME 8.8 fL (7.4-10.4); NEUTROPHILS 72.2 % (40-80); PLATELET COUNT 137 10x3/uL (130-400); RBC 3.47 10x6/uL (4.00-5.40); RDW 14.2 % (11.5-14.5); SODIUM 131 mmol/L (136-145); eGFR NON AFRICAN AMERICAN > 90 mL/min (90-120)
[2018-11-23 06:47] LABS: MCV 83.3 fL (80.0-100.0); WBC 3.3 10x3/uL (4.8-10.8)
[2018-11-23 06:52] LABS: CALC OSMOLALITY 262 mosm/kg (275-300); UREA NITROGEN 11 mg/dL (7-18)
--- NOTE | 2018-11-23 08:33 | NUR ---
PT RESTING IN BED "WAITING ON BREAKFAST". NO S/S OF ACUTE DISTRESS. CL IN PLACE.
[2018-11-23 09:35] VITALS: BP 150/66
--- NOTE | 2018-11-23 11:27 | NUR ---
Excisional debridement of right knee by Dr. Molina on 11/22/18. Wound care consult are not necessary for this patient as the surgeon provides all post op orders.
--- NOTE | 2018-11-23 11:56 | MORECARE ---
CASE MANAGEMENT DISCHARGE SUMMARY PATIENT: KEILA KENT UNIT: [id number] ADM DATE: 11/21/18 AGE: 83 : 36 SEX: F ROOM/BED: D.2220 AUTHOR: MEGAN HENDERSON PHYSICIAN: REFERRING PHYSICIAN: MARLENE AVILA MD DATE OF SERVICE: 11/23/18 Discharge Plan Patient Name: KEILA KENT Facility: [facility]:[place] : 1935 Planned Disposition: Senior Living Facility Anticipated Discharge Date: Discharge Date: Expected LOS: Initial Reviewer: [email or web address] Initial Review Date: 11/21/2018 Generated: 11/23/18 12:56 pm DCPIA - Discharge Planning Initial Assessment Updated by [email or web address]: Keke Fry on 11/23/18 11:52 am * Is the patient Alert and Oriented? Yes * How many steps to enter\exit or inside your home? * PCP [facility] * Pharmacy [facility] * Preadmission Environment Senior Living Facility * Facility Name [facility] * ADLs Partial Dependent * Partial ADLs (Assistance needed) Ambulation * Equipment Cane Rolling Walker * List name and contact numbers for known caregivers / representatives who currently or will assist patient after discharge: MICK () [phone] * Verbal permission to speak to the caregivers and representatives has been obtained from the patient. N/A * Community resources currently utilized None * Additional services required to return to the preadmission environment? No * Can the patient safely return to the preadmission environment? Yes * Has this patient been hospitalized within the prior 30 days at any hospital? Yes Coverage Notice Reviewer: [email or web address] - Keke Fry Notice Issued Date-Time: 11/23/2018 11:40 Notice Type: Patient Choice Letter Notice Delivered To: Patient Relationship to Patient: Blender Helper Name: Delivery Method: - Katie Days: Prior Verbal Notification: Recipient Understood Notice: Yes Recipient Signature: Yes Med Rec Note Co-signed by Attending: Coverage Notice Comment: JORGE TO RETURN TO [facility] Patient Name: KEILA KENT Page 45049 at 1156 All edits/amendments must be made on the electronic document DICTATION DATE: 11/23/181155 MACARONI MAKER: ANABEL 11/23/18 115 RPT#: [id number] DC DATE: STATUS: ADM IN [facility] [address] [place] [address] END OF REPORT
--- NOTE | 2018-11-23 12:05 | MORECARE ---
CASE MANAGEMENT DISCHARGE SUMMARY PATIENT: KEILA KENT UNIT: [id number] ADM DATE: 11/21/18 AGE: 83 : 36 SEX: F ROOM/BED: D.2220 AUTHOR: SANTIAGO,DOC PHYSICIAN: REFERRING PHYSICIAN: MARLENE AVILA MD DATE OF SERVICE: 11/23/18 Discharge Plan Patient Name: KEILA KENT Facility: [facility]:[place] : 1935 Planned Disposition: [facility] Facility Anticipated Discharge Date: Discharge Date: Expected LOS: Initial Reviewer: [email or web address] Initial Review Date: 11/21/2018 Generated: 11/23/18 1:05 pm Comments DCP- Discharge Planning Updated by [email or web address]: Keke Fry on 11/23/18 11:[address] Patient Name: KEILA KENT Admission Status: Elective Accout number: [id number] Admission Date: 11-21-2018 : 1935 Admission Diagnosis: Attending: MARLENE AVILA Current LOS: 2 Anticipated DC Date: Planned Disposition: [facility] Facility Primary Insurance: MEDICARE A & B Discharge Planning Comments: CM met with patient to complete initial dc planning assessment. CM educated patient on the CM role and verbal consent given by patient to complete assessment. Patient lives at home with her . At discharge patient plans to return to [facility] where she was currently doing rehab and feels this is a safe discharge. Patient has a cane and a walker at home. JORGE signed with [facility]. Patient denied known discharge needs at this time. CM will continue to follow and will assist as needed with dc plans/needs. Slab Conditioner Supervisor: Keke Fry DCPIA - Discharge Planning Initial Assessment Updated by [email or web address]: Keke Fry on 11/23/18 11:52 am * Is the patient Alert and Oriented? Yes * How many steps to enter\exit or inside your home? * PCP [facility] * Pharmacy [facility] * Preadmission Environment [facility] Facility * Facility Name [facility] * ADLs Partial Dependent * Partial ADLs (Assistance needed) Ambulation * Equipment Cane Rolling Walker * List name and contact numbers for known caregivers / representatives who currently or will assist patient after discharge: MICK () [phone] * Verbal permission to speak to the caregivers and representatives has been obtained from the patient. N/A * Community resources currently utilized None * Additional services required to return to the preadmission environment? No * Can the patient safely return to the preadmission environment? Yes * Has this patient been hospitalized within the prior 30 days at any hospital? Yes Coverage Notice Reviewer: [id number] Lance Fry Notice Issued Date-Time: 11/23/2018 11:40 Notice Type: Patient Choice Letter Notice Delivered To: Patient Relationship to Patient: Lean Six Sigma Black Belt Name: Delivery Method: - Katie Days: Prior Verbal Notification: Recipient Understood Notice: Yes Recipient Signature: Yes Med Rec Note Co-signed by Attending: Coverage Notice Comment: JORGE TO RETURN TO [facility] Last DP export: 11/23/18 10:56 am Patient Name: KEILA KENT Page 39821 at 1205 All edits/amendments must be made on the electronic document DICTATION DATE: 11/23/18 120 MESSENGER COPY: ANABEL 11/23/18 1204 RPT#: [id number] DC DATE: STATUS: ADM IN [facility] [address] [place] [address] END OF REPORT
[2018-11-23 13:58] VITALS: BP 153/57
[2018-11-23 18:01] VITALS: BP 161/76
--- NOTE | 2018-11-23 18:04 | NUR ---
LATE ENTRY 1714. STERILE IO CATH DONE. UA SENT TO LAB. CHANGED R KNEE DRESSING. DRESSING C/D/I. KNEE IMMOLIZER IN PLACE. PT RESTING IN BED EATING TV. NO S/S OF ACUTE DISTRESS. CL IN PLACE.
[2018-11-23 19:18] LABS: APPEARANCE CLEAR (CLEAR); BILIRUBIN NEGATIVE (NEGATIVE); COLOR YELLOW (YELLOW); GLUCOSE NEGATIVE (NEGATIVE); KETONE NEGATIVE (NEGATIVE); NITRITE NEGATIVE (NEGATIVE); PROTEIN NEGATIVE (NEGATIVE); UROBILINOGEN NORMAL (NORMAL)
[2018-11-23 19:19] LABS: BACTERIA MANY /hpf (NONE SEEN); WHITE CELLS - URINE 0-5 /hpf (0-5)
[2018-11-23 20:00] VITALS: BP 172/76
[2018-11-23 21:48] LABS: MAGNESIUM - SERUM 1.5 mg/dL (1.8-2.4); POTASSIUM - SERUM 3.1 mmol/L (3.5-5.1)
[2018-11-24 00:30] VITALS: BP 155/75
--- NOTE | 2018-11-24 02:20 | NUR ---
EYES CLOSED RESPIRATIONS WITH EASE AND UNLABORED.
[2018-11-24 05:00] VITALS: BP 158/72
[2018-11-24 06:47] LABS: BASOPHILS 0.3 % (0-2); EOSINOPHILS 2.4 % (0-7); HEMATOCRIT 30.4 % (36.0-48.0); HEMOGLOBIN 10.1 g/dL (12-16); IMMATURE GRANULOCYTES 0.3 % (0-5); LYMPHOCYTES 13.5 % (15-50); MCH 27.2 pg (26.0-34.0); MCHC 33.2 g/dL (31.0-37.0); MCV 81.9 fL (80.0-100.0); MONOCYTES 11.4 % (2-11); NEUTROPHILS 72.1 % (40-80); PLATELET COUNT 148 10x3/uL (130-400); RBC 3.71 10x6/uL (4.00-5.40); RDW 14.1 % (11.5-14.5); WBC 3.3 10x3/uL (4.8-10.8)
[2018-11-24 06:54] LABS: CALC OSMOLALITY 263 mosm/kg (275-300); CALCIUM 8.6 mg/dL (8.5-10.1); CHLORIDE - SERUM 96 mmol/L (98-107); CREATININE - SERUM 0.5 mg/dL (0.6-1.3); GLUCOSE 111 mg/dL (74-106); MAGNESIUM - SERUM 1.7 mg/dL (1.8-2.4); POTASSIUM - SERUM 3.1 mmol/L (3.5-5.1); SODIUM 132 mmol/L (136-145); eGFR NON AFRICAN AMERICAN > 90 mL/min (90-120)
[2018-11-24 06:56] LABS: UREA NITROGEN 8 mg/dL (7-18)
--- NOTE | 2018-11-24 07:26 | NUR ---
PT RESTING IN BED WITH EYES OPEN. RESPIRATIONS ARE EVEN AND UNLABORED. PT DENIES PRESENCE OF PAIN. KNEE BRACE NOTED TO RIGHT LOWER EXTREMITY. DRESSING PRESENT. DRESSING IS C/D/I. PT DENIES PRESENCE OF N/V. BED IS IN THE LOWEST POSITION. CALL LIGHT IS WITHIN REACH. SIDE RAILS X 2. FALL PRECAUTIONS ARE INPLACE. BED ALARM IS ON AND WORKING. WILL CONT TO MONITOR.
[2018-11-24 09:19] VITALS: BP 159/81
--- NOTE | 2018-11-24 09:45 | NUR ---
PT WITH MULTIPLE LOOSE STOOLS THIS AM. BECCA HERNÁNDEZ NOTIFIED.
--- NOTE | 2018-11-24 09:46 | NUR ---
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 PT EDUCATED ON ISOLATION PRECAUTIONS AND FAMILY MEMBER EDUCATED. PT AND FAMILY MEMBER VERBALIZE UNDERSTANDING AND DENY FURTHER QUESTIONS/CONCERNS AT THIS TIME. WILL CONT TO MONITOR.
[2018-11-24 12:27] VITALS: BP 147/77; BP 152/75
--- NOTE | 2018-11-24 13:25 | NUR ---
NUTRITION F/U SPOKE WITH PT SPOUSE. STATES PT TOLERATING DIET WITH MODEST PO INTAKE. WILL CONTINUE TO PROVIDE DIET, MONITOR PT PROGRESS. RD FOLLOWING
[2018-11-24 18:03] VITALS: BP 119/35; BP 167/88
--- NOTE | 2018-11-24 19:00 | NUR ---
REPORT RECEIVED AND CARE OF PT ASSUMED. PT LYING IN LOW FRAGA'S POSITION WATCHING TV. LEFT PICC LINE PATENT WITH 1/2 NS INFUSING AT 50 ML / HR. WILL MONITOR FOR NEEDS.
[2018-11-24 21:00] VITALS: BP 152/68
--- NOTE | 2018-11-24 21:34 | NUR ---
HS MEDICATIONS GIVEN TO INCLUDE 40 MEQ OF K DUR PER THE ELECTROLYTE PROTOCOL FOR POTASSIUM LEVEL OF 3.4 AT LAST CHECK. WILL RE-CHECK IN AM.
--- NOTE | 2018-11-24 23:18 | NUR ---
GAVE ZOFRAN PER PRN ORDER FOR C/O NAUSEA. WILL MONITOR FOR EFFECTIVENESS.
[2018-11-25 04:36] VITALS: BP 159/78
[2018-11-25 05:25] LABS: BASOPHILS 0.2 % (0-2); EOSINOPHILS 2.4 % (0-7); HEMATOCRIT 29.3 % (36.0-48.0); HEMOGLOBIN 9.8 g/dL (12-16); IMMATURE GRANULOCYTES 0.2 % (0-5); LYMPHOCYTES 13.2 % (15-50); MCH 27.5 pg (26.0-34.0); MCHC 33.4 g/dL (31.0-37.0); MCV 82.3 fL (80.0-100.0); MEAN PLATELET VOLUME 8.6 fL (7.4-10.4); MONOCYTES 11.5 % (2-11); NEUTROPHILS 72.5 % (40-80); PLATELET COUNT 153 10x3/uL (130-400); RBC 3.56 10x6/uL (4.00-5.40); WBC 4.1 10x3/uL (4.8-10.8)
[2018-11-25 05:34] LABS: CALC OSMOLALITY 257 mosm/kg (275-300); CALCIUM 8.4 mg/dL (8.5-10.1); CARBON DIOXIDE 27.3 mmol/L (21.0-32.0); CHLORIDE - SERUM 95 mmol/L (98-107); CREATININE - SERUM 0.6 mg/dL (0.6-1.3); GLUCOSE 109 mg/dL (74-106); MAGNESIUM - SERUM 1.6 mg/dL (1.8-2.4); SODIUM 129 mmol/L (136-145); UREA NITROGEN 7 mg/dL (7-18); eGFR NON AFRICAN AMERICAN > 90 mL/min (90-120)
[2018-11-25 05:35] LABS: POTASSIUM - SERUM 4.1 mmol/L (3.5-5.1)
[2018-11-25] MEDS ORDERED: ZYVOX600 MG PO (08:16)
[2018-11-25 09:15] VITALS: BP 140/64
--- NOTE | 2018-11-25 10:05 | MORECARE ---
CASE MANAGEMENT DISCHARGE SUMMARY PATIENT: KEILA KENT UNIT: [id number] ADM DATE: 11/21/18 AGE: 83 : 36 SEX: F ROOM/BED: D.2220 AUTHOR: SANTIAGO,DOC PHYSICIAN: REFERRING PHYSICIAN: MARLENE AVILA MD DATE OF SERVICE: 11/25/18 Discharge Plan Patient Name: KEILA KENT Facility: [facility]:[place] : 1935 Planned Disposition: [facility]-Way Facility Anticipated Discharge Date: Discharge Date: Expected LOS: Initial Reviewer: [email or web address] Initial Review Date: 11/21/2018 Generated: 11/25/18 11:05 am Comments DCP- Discharge Planning Updated by [email or web address]: Keke Fry on 11/25/18 8:[address] PATIENT WILL BE DISCHARGED BACK TO [facility] TO A SKILLED BED, IMM SERVED AND EXPLAINED. AT BEDSIDE. CM WILL CONTINUE TO FOLLOW AND ASSIST NEEDED DCP- Discharge Planning Updated by [email or web address]: Keke Fry on 11/23/18 11:[address] Patient Name: KEILA KENT Admission Status: Elective Accout number: [id number] Admission Date: 11-21-2018 : 1935 Admission Diagnosis: Attending: MARLENE AVILA Current LOS: 2 Anticipated DC Date: Planned Disposition: Half-Way Facility Primary Insurance: MEDICARE A & B Discharge Planning Comments: CM met with patient to complete initial dc planning assessment. CM educated patient on the CM role and verbal consent given by patient to complete assessment. Patient lives at home with her . At discharge patient plans to return to [facility] where she was currently doing rehab and feels this is a safe discharge. Patient has a cane and a walker at home. JORGE signed with [facility]. Patient denied known discharge needs at this time. CM will continue to follow and will assist as needed with dc plans/needs. Us Customs And Border Officer: Keke Fry DCPIA - Discharge Planning Initial Assessment Updated by [email or web address]: Keke Fry on 11/23/18 11:52 am * Is the patient Alert and Oriented? Yes * How many steps to enter\exit or inside your home? * PCP [facility] * Pharmacy [facility] * Preadmission Environment [facility]-Way Facility * Facility Name [facility] * ADLs Partial Dependent * Partial ADLs (Assistance needed) Ambulation * Equipment Cane Rolling Walker * List name and contact numbers for known caregivers / representatives who currently or will assist patient after discharge: MICK () [phone] * Verbal permission to speak to the caregivers and representatives has been obtained from the patient. N/A * Community resources currently utilized None * Additional services required to return to the preadmission environment? No * Can the patient safely return to the preadmission environment? Yes * Has this patient been hospitalized within the prior 30 days at any hospital? Yes Coverage Notice Reviewer: [id number] Lance Fry Notice Issued Date-Time: 11/23/2018 11:40 Notice Type: Patient Choice Letter Notice Delivered To: Patient Relationship to Patient: Technician Telecommunication Systems Name: Delivery Method: - Katie Days: Prior Verbal Notification: Recipient Understood Notice: Yes Recipient Signature: Yes Med Rec Note Co-signed by Attending: Coverage Notice Comment: JORGE TO RETURN TO [facility] Reviewer: [id number] Fry Notice Issued Date-Time: 11/25/2018 9:55 Notice Type: IM Discharge Notice Notice Delivered To: Patient Relationship to Patient: Technician Telecommunication Systems Name: Delivery Method: HAND - Hand Delivered Katie Days: Prior Verbal Notification: Yes Recipient Understood Notice: Yes Recipient Signature: Med Rec Note Co-signed by Attending: Coverage Notice Comment: Last DP export: 11/23/18 11:05 am Patient Name: KEILA KENT Page 35347 at 1005 All edits/amendments must be made on the electronic document DICTATION DATE: 11/25/18 1004 ASSEMBLER PLASTIC BOAT: DM 11/25/18 1004 RPT#: [id number] DC DATE: STATUS: ADM IN [facility] [address] [place] [address] END OF REPORT
--- NOTE | 2018-11-25 10:12 | MORECARE ---
CASE MANAGEMENT DISCHARGE SUMMARY PATIENT: KEILA KENT UNIT: [id number] ADM DATE: 11/21/18 AGE: 83 : 36 SEX: F ROOM/BED: D.2220 AUTHOR: SANTIAGO,DOC PHYSICIAN: REFERRING PHYSICIAN: MARLENE AVILA MD DATE OF SERVICE: 11/25/18 Discharge Plan Patient Name: KEILA KENT Facility: [facility]:[place] : 1935 Planned Disposition: Prison Facility Anticipated Discharge Date: Discharge Date: Expected LOS: Initial Reviewer: [email or web address] Initial Review Date: 11/21/2018 Generated: 11/25/18 11:12 am Comments DCP- Discharge Planning Updated by [email or web address]: Keke Fry on 11/25/18 8:[address] PATIENT WILL BE DISCHARGED BACK TO [facility] TO A SKILLED BED, IMM SERVED AND EXPLAINED. AT BEDSIDE. CM WILL CONTINUE TO FOLLOW AND ASSIST NEEDED DCP- Discharge Planning Updated by [email or web address]: Keke Fry on 11/23/18 11:[address] Patient Name: KEILA KETN Admission Status: Elective Accout number: [id number] Admission Date: 11-21-2018 : 1935 Admission Diagnosis: Attending: MARLENE AVILA Current LOS: 2 Anticipated DC Date: Planned Disposition: Prison Facility Primary Insurance: MEDICARE A & B Discharge Planning Comments: CM met with patient to complete initial dc planning assessment. CM educated patient on the CM role and verbal consent given by patient to complete assessment. Patient lives at home with her . At discharge patient plans to return to [facility] where she was currently doing rehab and feels this is a safe discharge. Patient has a cane and a walker at home. JORGE signed with [facility]. Patient denied known discharge needs at this time. CM will continue to follow and will assist as needed with dc plans/needs. Cyber Incident Responder: Keke Fry DCPIA - Discharge Planning Initial Assessment Updated by [email or web address]: Keke Fry on 11/23/18 11:52 am * Is the patient Alert and Oriented? Yes * How many steps to enter\exit or inside your home? * PCP [facility] * Pharmacy [facility] * Preadmission Environment Prison Facility * Facility Name [facility] * ADLs Partial Dependent * Partial ADLs (Assistance needed) Ambulation * Equipment Cane Rolling Walker * List name and contact numbers for known caregivers / representatives who currently or will assist patient after discharge: MICK () [phone] * Verbal permission to speak to the caregivers and representatives has been obtained from the patient. N/A * Community resources currently utilized None * Additional services required to return to the preadmission environment? No * Can the patient safely return to the preadmission environment? Yes * Has this patient been hospitalized within the prior 30 days at any hospital? Yes External Providers [facility] Next Contact Date: Service Request Date: Service Type: Resolution: Reviewer: Comments: Coverage Notice Reviewer: [id number] Lance Fry Notice Issued Date-Time: 11/23/2018 11:40 Notice Type: Patient Choice Letter Notice Delivered To: Patient Relationship to Patient: Paste Mixing Supervisor Name: Delivery Method: - Katie Days: Prior Verbal Notification: Recipient Understood Notice: Yes Recipient Signature: Yes Med Rec Note Co-signed by Attending: Coverage Notice Comment: JORGE TO RETURN TO [facility] Reviewer: [id number] Lance Fry Notice Issued Date-Time: 11/25/2018 9:55 Notice Type: IM Discharge Notice Notice Delivered To: Patient Relationship to Patient: Paste Mixing Supervisor Name: Delivery Method: HAND - Hand Delivered Katie Days: Prior Verbal Notification: Yes Recipient Understood Notice: Yes Recipient Signature: Med Rec Note Co-signed by Attending: Coverage Notice Comment: Last DP export: 11/25/18 9:05 am Patient Name: KEILA KENT Page 39024 at 1012 All edits/amendments must be made on the electronic document DICTATION DATE: 11/25/18 1012 IT INFRASTRUCTURE ARCHITECT: ANABEL 11/25/18 1012 RPT#: [id number] DC DATE: STATUS: ADM IN [facility] [address] [place] [address] END OF REPORT
--- NOTE | 2018-11-28 13:58 | MORECARE ---
CASE MANAGEMENT DISCHARGE SUMMARY PATIENT: KEILA KENT UNIT: [id number] ADM DATE: 11/21/18 AGE: 83 : 36 SEX: F ROOM/BED: D.2220 AUTHOR: SANTIAGO,DOC PHYSICIAN: REFERRING PHYSICIAN: MARLENE AVILA MD DATE OF SERVICE: 11/28/18 Discharge Plan Patient Name: KEILA KENT Facility: [facility]:[place] : 1935 Planned Disposition: [facility] Anticipated Discharge Date: Discharge Date: 11/25/2018 Expected LOS: 0 Initial Reviewer: [email or web address] Initial Review Date: 11/21/2018 Generated: 11/28/18 2:58 pm Comments DCP- Discharge Planning Updated by [email or web address]: Keke Fry on 11/25/18 8:[address] PATIENT WILL BE DISCHARGED BACK TO [facility] TO A SKILLED BED, IMM SERVED AND EXPLAINED. AT BEDSIDE. CM WILL CONTINUE TO FOLLOW AND ASSIST NEEDED DCP- Discharge Planning Updated by [email or web address]: Keke Fry on 11/23/18 11:[address] Patient Name: KEILA KENT Admission Status: Elective Accout number: [id number] Admission Date: 11-21-2018 : 1935 Admission Diagnosis: Attending: MARLENE AVILA Current LOS: 2 Anticipated DC Date: Planned Disposition: [facility] Primary Insurance: MEDICARE A & B Discharge Planning Comments: CM met with patient to complete initial dc planning assessment. CM educated patient on the CM role and verbal consent given by patient to complete assessment. Patient lives at home with her . At discharge patient plans to return to [facility] where she was currently doing rehab and feels this is a safe discharge. Patient has a cane and a walker at home. JORGE signed with [facility]. Patient denied known discharge needs at this time. CM will continue to follow and will assist as needed with dc plans/needs. Electric Power Line Repairer: Keke Fry DCPIA - Discharge Planning Initial Assessment Updated by [email or web address]: Keke Fry on 11/23/18 11:52 am * Is the patient Alert and Oriented? Yes * How many steps to enter\exit or inside your home? * PCP [facility] * Pharmacy [facility] * Preadmission Environment [facility] * Facility Name [facility] * ADLs Partial Dependent * Partial ADLs (Assistance needed) Ambulation * Equipment Cane Rolling Walker * List name and contact numbers for known caregivers / representatives who currently or will assist patient after discharge: MICK () [phone] * Verbal permission to speak to the caregivers and representatives has been obtained from the patient. N/A * Community resources currently utilized None * Additional services required to return to the preadmission environment? No * Can the patient safely return to the preadmission environment? Yes * Has this patient been hospitalized within the prior 30 days at any hospital? Yes Coverage Notice Reviewer: [id number] Lance Fry Notice Issued Date-Time: 11/23/2018 11:40 Notice Type: Patient Choice Letter Notice Delivered To: Patient Relationship to Patient: Utility System Repairer Name: Delivery Method: - Katie Days: Prior Verbal Notification: Recipient Understood Notice: Yes Recipient Signature: Yes Med Rec Note Co-signed by Attending: Coverage Notice Comment: JORGE TO RETURN TO [facility] Reviewer: [id number] Lance Fry Notice Issued Date-Time: 11/25/2018 9:55 Notice Type: IM Discharge Notice Notice Delivered To: Patient Relationship to Patient: Utility System Repairer Name: Delivery Method: HAND - Hand Delivered Katie Days: Prior Verbal Notification: Yes Recipient Understood Notice: Yes Recipient Signature: Med Rec Note Co-signed by Attending: Coverage Notice Comment: Last DP export: 11/25/18 9:12 am Patient Name: KEILA KENT Page [phone] at 1358 All edits/amendments must be made on the electronic document DICTATION DATE: 11/28/18 1358 FERRIS WHEEL OPERATOR: ANABEL 11/28/18 1358 RPT#: [id number] DC DATE:11/25/18 STATUS: DIS IN [facility] [address] [place] [address] END OF REPORT
== END 2018-11-25 10:59 | DRG 560 ==
LOC: D.MS 15:46
PROVIDERS: Emergency Medicine; Family Medicine; Radiology Vascular & Interventional Radiology; ADMIT Orthopaedic Surgery; ATTEND Orthopaedic Surgery
PROC: 0S9C3ZZ Drainage of Right Knee Joint, Percutaneous Approach (ICD-10-PCS; principal; 2018-11-22 08:00)
DX: T84.54XA Infection and inflammatory reaction due to internal left knee prosthesis, initial encounter (principal); M00.9 Pyogenic arthritis, unspecified; N39.0 Urinary tract infection, site not specified; F44.89 Other dissociative and conversion disorders; I10 Essential (primary) hypertension; Z96.652 Presence of left artificial knee joint; K27.9 Peptic ulcer, site unspecified, unspecified as acute or chronic, without hemorrhage or perforation

== ENCOUNTER → 2019-02-08 18:10 | Outpatient (CLI) | payer MEDICARE, OTHER ==
[2018-11-22 13:30] VITALS: BMI 26.8
[~2019-02-08 18:10] MED LIST changes: +ZYVOX600 MG PO
[2019-02-08 19:02] LABS: BASOPHILS 0.5 % (0-2); HEMATOCRIT 35.1 % (36.0-48.0); HEMOGLOBIN 11.4 g/dL (12-16); LYMPHOCYTES 15.4 % (15-50); MCH 27.3 pg (26.0-34.0); MCHC 32.5 g/dL (31.0-37.0); MONOCYTES 7.8 % (2-11); NEUTROPHILS 72.3 % (40-80); PLATELET COUNT 169 10x3/uL (130-400); RBC 4.18 10x6/uL (4.00-5.40); RDW 14.5 % (11.5-14.5); WBC 4.2 10x3/uL (4.8-10.8)
[2019-02-08 19:21] LABS: CREATININE - SERUM 0.8 mg/dL (0.6-1.3)
[2019-02-08 21:45] LABS: ERYTHROCYTE SEDIMENTATION RATE 5 mm/hr (0-30)
== END | disposition home or self-care (01) ==
LOC: D.LABREF 18:10
PROVIDERS: ATTEND Student in an Organized Health Care Education/Training Program
DX: M00.9 Pyogenic arthritis, unspecified (principal)

== ENCOUNTER 2019-04-26 10:04 | Emergency (ER) | payer MEDICARE, OTHER ==
[~2019-04-26] VITALS: Ht 167.6 cm; Wt 70.9 kg
[2019-04-26 10:15] VITALS: Ht 167.6 cm; Wt 70.9 kg
[2019-04-26 11:21] LABS: BASOPHILS 0.1 % (0-2); EOSINOPHILS 0.3 % (0-7); HEMATOCRIT 34.1 % (36.0-48.0); HEMOGLOBIN 11.6 g/dL (12-16); IMMATURE GRANULOCYTES 0.4 % (0-5); LYMPHOCYTES 6.3 % (15-50); MCH 29.3 pg (26.0-34.0); MCV 86.1 fL (80.0-100.0); MEAN PLATELET VOLUME 8.6 fL (7.4-10.4); MONOCYTES 5.8 % (2-11); NEUTROPHILS 87.1 % (40-80); PLATELET COUNT 104 10x3/uL (130-400); RBC 3.96 10x6/uL (4.00-5.40); RDW 15.4 % (11.5-14.5); WBC 7.8 10x3/uL (4.8-10.8)
[2019-04-26 11:38] LABS: ALBUMIN 3.5 g/dL (3.4-5.0); ANION GAP 12.8 mmol/L (8-16); BILIRUBIN - TOTAL 0.88 mg/dL (0.2-1.3); CARBON DIOXIDE 29.6 mmol/L (21.0-32.0); CREATININE - SERUM 0.9 mg/dL (0.6-1.3); POTASSIUM - SERUM 3.4 mmol/L (3.5-5.1); PROTEIN - SERUM 6.5 g/dL (6.4-8.2)
[2019-04-26 11:56] LABS: APPEARANCE CLOUDY (CLEAR); BILIRUBIN NEGATIVE (NEGATIVE); COLOR YELLOW (YELLOW); GLUCOSE NEGATIVE (NEGATIVE); KETONE NEGATIVE (NEGATIVE); NITRITE POSITIVE (NEGATIVE); PROTEIN TRACE mg/dL (NEGATIVE); UROBILINOGEN NORMAL (NORMAL)
[2019-04-26 12:01] LABS: BACTERIA MANY /hpf (NONE SEEN); EPITHELIAL CELLS 0-5 /hpf (0-5); MUCUS <1+ /lpf (NONE SEEN); RED CELLS - URINE 0-5 /hpf (0-5)
[2019-04-26] MEDS ORDERED: CIPRO250 MG PO (12:12)
[2019-04-26] MEDS ORDERED: LOMOTIL 2.5-0.1 EAC1 PO (12:13)
[2019-04-26 12:40] VITALS: BP 115/67
== END 2019-04-26 12:41 | disposition home or self-care (01) ==
LOC: D.ER 10:04
PROVIDERS: Family Medicine
DX: N39.0 Urinary tract infection, site not specified (principal)

== ENCOUNTER 2020-02-08 05:56 | Inpatient (IN) | payer MEDICARE, OTHER ==
[~2020-02-08] VITALS: Ht 167.6 cm; Wt 77.1 kg
[~2020-02-08 05:56] MED LIST changes: +CIPRO250 MG PO; +LOMOTIL 2.5-0.1 EAC1 PO
[2020-02-08 06:25] LABS: BASOPHILS 0.3 % (0-2); EOSINOPHILS 0.8 % (0-7); HEMATOCRIT 40.8 % (36.0-48.0); HEMOGLOBIN 13.1 g/dL (12-16); LYMPHOCYTES 15.2 % (15-50); MCHC 32.1 g/dL (31.0-37.0); MCV 96.7 fL (80.0-100.0); MEAN PLATELET VOLUME 8.9 fL (7.4-10.4); MONOCYTES 15.2 % (2-11); NEUTROPHILS 68.5 % (40-80); PLATELET COUNT 123 10x3/uL (130-400); RBC 4.22 10x6/uL (4.00-5.40); RDW 12.6 % (11.5-14.5); WBC 3.9 10x3/uL (4.8-10.8)
[2020-02-08 06:41] LABS: CALC OSMOLALITY 288 mosm/kg (275-300); CALCIUM 9.3 mg/dL (8.5-10.1); CARBON DIOXIDE 33.3 mmol/L (21.0-32.0); CHLORIDE - SERUM 101 mmol/L (98-107); GLUCOSE 139 mg/dL (74-106); POTASSIUM - SERUM 3.7 mmol/L (3.5-5.1); SODIUM 140 mmol/L (136-145); UREA NITROGEN 35 mg/dL (7-18); eGFR NON AFRICAN AMERICAN 56 mL/min (90-120)
[2020-02-08 06:51] LABS: ALBUMIN 3.8 g/dL (3.4-5.0); ALKALINE PHOSPHATASE 83 U/L (30-120); ALT (SGPT) 26 U/L (10-68); BILIRUBIN - TOTAL 0.77 mg/dL (0.2-1.3); LIPASE 116 U/L (73-393); PROTEIN - SERUM 7.3 g/dL (6.4-8.2)
[2020-02-08 06:52] LABS: TROPONIN-I < 0.017 ng/mL (0.000-0.060)
[2020-02-08 07:20] LABS: BACTERIA MANY /hpf (NEGATIVE); BILIRUBIN NEGATIVE (NEGATIVE); EPITHELIAL CELLS OCC /hpf (0-5); GLUCOSE NEGATIVE (NEGATIVE); KETONE MODERATE mg/dL (NEGATIVE); NITRITE POSITIVE (NEGATIVE); RED CELLS - URINE RARE /hpf (0-5); UROBILINOGEN NORMAL (NORMAL); WHITE CELLS - URINE 0-5 /hpf (NEGATIVE)
--- NOTE | 2020-02-08 07:35 | NUR ---
AWAKE AND ALERT. RETURNED FROM CT. REPORTS PAIN HAS IMPROVED AND RATES PAIN AT 5/10. FLUID BOLUS OF NS CONTINUES AT ORDERED RATE OF 500 MLS/HR.
[2020-02-08 07:38] VITALS: BP 164/77
[2020-02-08 09:09] VITALS: BP 165/104
[2020-02-08 10:12] VITALS: BP 168/94; BMI 27.5
--- NOTE | 2020-02-08 10:43 | NUR ---
PATIENT ADMITTED TO ROOM 2220. ADMISSION COMPLETE. WAITING FOR TO BRING MED LIST TO BE ABLE TO VERIFY HOME MEDICATIONS. IV PAIN MEDICATION AND NAUSEA MEDICATION GIVEN PER PATIENT REQUEST. BED ALARM ON. DENIES FURTHER NEEDS. BED LOW. CALL INGRAM AND PERSONAL ITEMS IN REACH. WILL CONTINUE TO MONITOR.
--- NOTE | 2020-02-08 12:36 | NUR ---
PATIENT SLEEPING. WILL CONTINUE TO MONITOR.
[2020-02-08 13:17] VITALS: BP 168/94
--- NOTE | 2020-02-08 14:15 | NUR ---
HOME MEDICATIONS REVIEWED.
--- NOTE | 2020-02-08 16:40 | NUR ---
RESTING IN BED. DENIES NEEDS. WILL CONTINUE TO MONITOR.
[2020-02-08 17:07] VITALS: BP 170/93
--- NOTE | 2020-02-08 18:07 | NUR ---
SPOKE WITH TONI SHELTON WHO STATES NO NEED FOR SECOND URINE CULTURE SINCE PATIENT ALREADY HAD URINE CULTURE IN ER THIS AM. ORDER REMOVED.
[2020-02-08 20:00] VITALS: BP 173/79
[2020-02-09] VITALS: BP 169/83
[2020-02-09 04:00] VITALS: BP 154/95
[2020-02-09 06:07] LABS: HEMATOCRIT 35.6 % (36.0-48.0); HEMOGLOBIN 11.6 g/dL (12-16); MCH 31.2 pg (26.0-34.0); MCHC 32.6 g/dL (31.0-37.0); MCV 95.7 fL (80.0-100.0); MEAN PLATELET VOLUME 8.7 fL (7.4-10.4); PLATELET COUNT 112 10x3/uL (130-400); RBC 3.72 10x6/uL (4.00-5.40); RDW 12.2 % (11.5-14.5)
[2020-02-09 06:20] LABS: WBC 2.1 10x3/uL (4.8-10.8)
[2020-02-09 06:32] LABS: ALBUMIN 3.1 g/dL (3.4-5.0); ALKALINE PHOSPHATASE 66 U/L (30-120); BILIRUBIN - TOTAL 0.66 mg/dL (0.2-1.3); CALCIUM 8.2 mg/dL (8.5-10.1); CARBON DIOXIDE 29.6 mmol/L (21.0-32.0); CHLORIDE - SERUM 104 mmol/L (98-107); GLUCOSE 120 mg/dL (74-106); MAGNESIUM - SERUM 1.8 mg/dL (1.8-2.4); PROTEIN - SERUM 6.1 g/dL (6.4-8.2); SODIUM 141 mmol/L (136-145)
[2020-02-09 06:57] LABS: ALT (SGPT) 16 U/L (10-68); CALC OSMOLALITY 283 mosm/kg (275-300); CREATININE - SERUM 0.7 mg/dL (0.6-1.3); POTASSIUM - SERUM 3.1 mmol/L (3.5-5.1); UREA NITROGEN 17 mg/dL (7-18); eGFR NON AFRICAN AMERICAN 84 mL/min (90-120)
--- NOTE | 2020-02-09 07:15 | NUR ---
REC'D IN BED AWAKE AND ALERT. RESP EVEN AND UNLABORED WITH NO DISTRESS NOTED. CAN EXPRESS NEEDS AND WANTS. PT IS VERY [place]. HAS HEARING AIDE AT BEDSIDE. ASSESSMEMT COMPLETED. C/L IN REACH AT BEDSIDE.
--- NOTE | 2020-02-09 09:00 | NUR ---
MAURER 16F WAS PLACED AT THIS TIME VIA STERILE TECHNIQUE. PT TOLERATED WELL. NO C/O NOTED OR VOICED. C/L IN REACH A BEDSIDE.
[2020-02-09 09:08] LABS: LYMPHOCYTES 26 % (15-50); MONOCYTES 11 % (2-11); NEUTROPHILS 60 % (40-80); PLATELET ESTIMATE DECREASED
--- NOTE | 2020-02-09 09:27 | NUR ---
WAS MEDICATED WITH MORPHINE FOR C/O PAIN RATING 7/10. C/L IN REACH AT BEDSIDE.
--- NOTE | 2020-02-09 09:27 | NUR ---
WAS MEDICATED WITH MORPHINE PER ORDERS FOR C/O ABD PAIN. AND C/L IN REACH AT BEDSIDE.
[2020-02-09 10:29] VITALS: BP 181/86
[2020-02-09 11:17] VITALS: Ht 167.6 cm; Wt 77.1 kg
[2020-02-09 12:36] LABS: NITRITE POSITIVE (NEGATIVE); SPECIFIC GRAVITY 1.015 (1.005-1.020)
[2020-02-09 12:37] LABS: BILIRUBIN NEGATIVE (NEGATIVE); EPITHELIAL CELLS 0-5 /hpf (0-5); GLUCOSE 50 mg/dL (NEGATIVE); KETONE SMALL mg/dL (NEGATIVE); RED CELLS - URINE 0-5 /hpf (0-5); UROBILINOGEN NORMAL (NORMAL); WHITE CELLS - URINE 0-5 /hpf (NEGATIVE)
[2020-02-09 12:38] LABS: BACTERIA MODERATE /hpf (NEGATIVE)
[2020-02-09 13:47] VITALS: BP 174/86
[2020-02-09 18:03] VITALS: BP 169/79
--- NOTE | 2020-02-09 19:00 | NUR ---
BEDSIDE REPORT RECEIVED AND CARE OF PT ASSUMED. PT LYING IN LOW FRAGA'S POSITION VISITING WITH SPOUSE. IV TO LEFT WRIST PATENT WITH NS INFUSINGA T 75 ML/HR. NG TUBVE TO LEFT NARE CONNECTED TO LIS WITH BROWNISH LIQUID IN COLLECTION CANNIESTER. MAURER CATHETER DRAINING TO GRAVITY WITH YELLOW URINE IN COLLECTION BAG. WILL MONITOR FOR NEEDS.
--- NOTE | 2020-02-09 19:30 | NUR ---
GAVE MORPHINE AND ZOFRAN IVP PER REQUEST FOR PAIN / NAUSEA. WILL CONTINUE TO MONITOR FOR NEEDS.
[2020-02-09 20:00] VITALS: BP 169/81
[2020-02-10 00:01] VITALS: BP 164/76
--- NOTE | 2020-02-10 03:12 | NUR ---
LAB CALLED TO REPORT POSITIVE BLOOD CULTURES WITH GRAM POSITIVE COCCI.
[2020-02-10 05:16] VITALS: BP 188/95
[2020-02-10 05:20] LABS: BASOPHILS 0.7 % (0-2); HEMATOCRIT 35.1 % (36.0-48.0); HEMOGLOBIN 11.5 g/dL (12-16); LYMPHOCYTES 18.1 % (15-50); MCHC 32.8 g/dL (31.0-37.0); MCV 94.6 fL (80.0-100.0); MEAN PLATELET VOLUME 8.6 fL (7.4-10.4); MONOCYTES 19.4 % (2-11); NEUTROPHILS 59.8 % (40-80); PLATELET COUNT 128 10x3/uL (130-400); RBC 3.71 10x6/uL (4.00-5.40); RDW 12.2 % (11.5-14.5)
[2020-02-10 05:22] LABS: WBC 2.9 10x3/uL (4.8-10.8)
[2020-02-10 05:50] LABS: ANION GAP 10.3 mmol/L (8-16); CALCIUM 8.3 mg/dL (8.5-10.1); CARBON DIOXIDE 28.3 mmol/L (21.0-32.0); CREATININE - SERUM 0.8 mg/dL (0.6-1.3); MAGNESIUM - SERUM 1.8 mg/dL (1.8-2.4); PHOSPHOROUS 2.6 mg/dL (2.5-4.9)
[2020-02-10 05:51] LABS: POTASSIUM - SERUM 2.6 mmol/L (3.5-5.1)
[2020-02-10 10:39] VITALS: BP 165/76
[2020-02-10 12:20] LABS: MAGNESIUM - SERUM 2.6 mg/dL (1.8-2.4); POTASSIUM - SERUM 3.1 mmol/L (3.5-5.1)
[2020-02-10 15:19] VITALS: BP 164/95
[2020-02-10 18:37] VITALS: BP 150/70
--- NOTE | 2020-02-10 19:00 | NUR ---
BEDSIDE REPORT RECEIVED AND CARE OF PT ASSUMED. PT LYING IN LOW FRAGA'S POSITION...VOMITING AT THIS TIME WITH AT HER SIDE.
--- NOTE | 2020-02-10 19:11 | NUR ---
GAVE SCHEDULED REGLAN IVP AND PRN ZOFRAN FOR NAUSEA / VOMITING. INCREASED SUCTION FOR A MINUTE AND SUCTIONED OUT 350 ML GREEN LIQUID INTO NG CANNISTER.
[2020-02-10 20:21] VITALS: BP 162/75
--- NOTE | 2020-02-10 22:22 | NUR ---
GAVE MORPHINE 4 MG IVP AND ZOFRAN 4 MG IVP FOR C/O SEVERE PAIN AND NAUSEA. WILL MONITOR FOR EFFECTIVENESS.
--- NOTE | 2020-02-10 22:23 | NUR ---
HS MEDICATIONS GIVEN. PLACED PT ON BEDPAN TO ATTEMPT BM. TURNED ONTO RIGHT SIDE AND POSITIONED FOR COMFORT.
[2020-02-11 00:25] VITALS: BP 160/88
[2020-02-11 04:10] VITALS: BP 160/77
[2020-02-11 05:55] LABS: HEMATOCRIT 32.2 % (36.0-48.0); HEMOGLOBIN 10.7 g/dL (12-16); LYMPHOCYTES 14.3 % (15-50); MCH 30.4 pg (26.0-34.0); MCHC 33.2 g/dL (31.0-37.0); MEAN PLATELET VOLUME 8.1 fL (7.4-10.4); NEUTROPHILS 68.5 % (40-80); RBC 3.52 10x6/uL (4.00-5.40); RDW 11.8 % (11.5-14.5)
[2020-02-11 05:58] LABS: MCV 91.5 fL (80.0-100.0); PLATELET COUNT 163 10x3/uL (130-400); WBC 3.9 10x3/uL (4.8-10.8)
[2020-02-11 05:59] LABS: CALC OSMOLALITY 273 mosm/kg (275-300); CALCIUM 7.9 mg/dL (8.5-10.1); CARBON DIOXIDE 28.9 mmol/L (21.0-32.0); CHLORIDE - SERUM 99 mmol/L (98-107); CREATININE - SERUM 0.7 mg/dL (0.6-1.3); GLUCOSE 134 mg/dL (74-106); PHOSPHOROUS 2.2 mg/dL (2.5-4.9); SODIUM 135 mmol/L (136-145); UREA NITROGEN 19 mg/dL (7-18); eGFR NON AFRICAN AMERICAN 84 mL/min (90-120)
--- NOTE | 2020-02-11 08:05 | NUR ---
NG TUBE CLAMPED PER INSTRUCTION. NO NEEDS AT THIS TIME. WCTM
[2020-02-11 08:44] VITALS: BP 154/65
[2020-02-11 12:10] VITALS: BP 152/76
--- NOTE | 2020-02-11 12:40 | NUR ---
PATIENT CO OF NAUSEA AND ABD PAIN. REATTACHED NG TUBE TO LIS. CL IN REACH. PATIENT SITTING IN CHAIR. TOLD HER NOT TO EAT ONLY TO HAVE SM SIPS OF WATER AND ICE CHIPS. VOICED UNDERSTANDING. CL IN REACH. TM
--- NOTE | 2020-02-11 14:23 | NUR ---
PT BACK IN BED RESTING. NO NEEDS AT THIS TIME. WCTM
[2020-02-11 16:07] VITALS: BP 163/89
--- NOTE | 2020-02-11 17:30 | NUR ---
REMOVED FROM SUCTION AT THIS TIME. PATIENT HAS NO CO OF PAIN OR NAUSEA. STATED WE WOULD TRY EATING AGAIN AND SEE HOW IT GOES. CL IN REACH. BED ALARM ON. WCTM
--- NOTE | 2020-02-11 19:00 | NUR ---
BEDSIDE REPORT RECEIVED AND CARE OF PT ASSUMED. PT LYING IN MID FRAGA'S POSITION WITH EYES CLOSED. NG TUBE TO LEFT NARE CLAMPED. MAURER CATHETER DRAINING TO GRAVITY WITH YELLOW URINE IN COLLECTION BAG. IV TO LEFT WRIST PATENT WITH PROCAL INFUSING AT 75. SCD'S IN PLACE ON BLE. WILL MONITOR FOR NEEDS.
[2020-02-11 20:25] VITALS: BP 190/92
--- NOTE | 2020-02-11 21:08 | NUR ---
HS MEDICATIONS GIVEN TO INCLUDE MORPHINE AND ZOFRAN PER REQUEST FOR PAIN AND NAUSEA. NO VOMITING THIS SHIFT. PT CONFUSED TO SITUATION...RE-ORIENTED. BED ALARM IN USE. WILL CONTINUE TO MONITOR FOR NEEDS.
--- NOTE | 2020-02-11 22:06 | NUR ---
OFFERED PT A BATH AND BED CHANGE. PT DECLINED STATING THAT HER SPOUSE WILL ASSIST HER IN BATHING IN THE AM.
[2020-02-12 05:02] LABS: HEMATOCRIT 34.6 % (36.0-48.0); HEMOGLOBIN 11.6 g/dL (12-16); MCH 30.6 pg (26.0-34.0); MCHC 33.5 g/dL (31.0-37.0); MCV 91.3 fL (80.0-100.0); MEAN PLATELET VOLUME 8.2 fL (7.4-10.4); NEUTROPHILS 72.2 % (40-80); PLATELET COUNT 174 10x3/uL (130-400); RBC 3.79 10x6/uL (4.00-5.40); RDW 12.1 % (11.5-14.5); WBC 4.6 10x3/uL (4.8-10.8)
[2020-02-12 05:10] VITALS: BP 177/80
[2020-02-12 05:18] LABS: CALC OSMOLALITY 264 mosm/kg (275-300); CALCIUM 8.1 mg/dL (8.5-10.1); CARBON DIOXIDE 33.1 mmol/L (21.0-32.0); CHLORIDE - SERUM 96 mmol/L (98-107); CREATININE - SERUM 0.6 mg/dL (0.6-1.3); GLUCOSE 128 mg/dL (74-106); MAGNESIUM - SERUM 1.7 mg/dL (1.8-2.4); PHOSPHOROUS 3.1 mg/dL (2.5-4.9); POTASSIUM - SERUM 3.3 mmol/L (3.5-5.1); SODIUM 131 mmol/L (136-145); UREA NITROGEN 12 mg/dL (7-18); eGFR NON AFRICAN AMERICAN > 90 mL/min (90-120)
[2020-02-12 08:36] VITALS: BP 167/92
--- NOTE | 2020-02-12 09:55 | NUR ---
PATIENT CO OF NAUSEA. ZOFRAN GIVEN PER EMAR. PATIENT VOMITED. BED LINENS CHANGED WITH HELP FROM RADIOLOGY WHO WERE THERE TO DO A KUB. PT NPO. VOMIT WAS YELLOW TINGED. BM WAS LOOSE WITH A COTTAGE CHEESE CONSISTANCY. DK BROWN AND GREEN TINT. CL IN REACH. WCTM
--- NOTE | 2020-02-12 10:34 | NUR ---
IN ROOM. CL IN REACH. PLACED ON AND REMOVED FROM BEDPAN WITH ANOTHER LIQUID BM. WCTM
[2020-02-12 12:24] VITALS: BP 146/96
[2020-02-12 16:15] VITALS: BP 140/89
--- NOTE | 2020-02-12 19:00 | NUR ---
BEDSIDE REPORT RECEIVED AND CARE OF PT ASSUMED. PT SITTING UP IN BED VISITING WITH SPOUSE. IV TO LEFT WRIST PATENT WITH PROCAL INFUSING AT 75 ML/HR. MAURRE CATHETER DRAINING TO GRAVITY WITH YELLOW URINE IN COLLECTION BAG. WILL MONITOR FOR NEEDS.
--- NOTE | 2020-02-12 19:48 | NUR ---
HS MEDICATIONS GIVEN TO INCLUDE MORPHINE PER REQUEST FOR ABDOMINAL PAIN.
[2020-02-12 20:27] VITALS: BP 161/86
--- NOTE | 2020-02-12 22:02 | NUR ---
PT FEELING BETTER...SITTING UP IN BED READING THE PAPER. WILL CONTINUE TO MONITOR FOR NEEDS.
[2020-02-13 00:33] VITALS: BP 150/80
[2020-02-13 04:00] VITALS: BP 167/83
--- NOTE | 2020-02-13 05:07 | NUR ---
PT HAD X3 INCONTINENT GREEN, LOOSE STOOLS OVERNIGHT.
[2020-02-13 05:58] LABS: BASOPHILS 0.2 % (0-2); EOSINOPHILS 1.6 % (0-7); HEMATOCRIT 32.8 % (36.0-48.0); IMMATURE GRANULOCYTES 1.1 % (0-5); MCH 30.7 pg (26.0-34.0); MCHC 33.5 g/dL (31.0-37.0); MCV 91.6 fL (80.0-100.0); MEAN PLATELET VOLUME 8.5 fL (7.4-10.4); NEUTROPHILS 71.1 % (40-80); RBC 3.58 10x6/uL (4.00-5.40); RDW 12.2 % (11.5-14.5); WBC 4.4 10x3/uL (4.8-10.8)
[2020-02-13 06:38] LABS: CALC OSMOLALITY 275 mosm/kg (275-300); CALCIUM 8.1 mg/dL (8.5-10.1); CARBON DIOXIDE 29.6 mmol/L (21.0-32.0); CHLORIDE - SERUM 102 mmol/L (98-107); CREATININE - SERUM 0.5 mg/dL (0.6-1.3); GLUCOSE 120 mg/dL (74-106); PHOSPHOROUS 2.9 mg/dL (2.5-4.9); POTASSIUM - SERUM 3.2 mmol/L (3.5-5.1); SODIUM 137 mmol/L (136-145); UREA NITROGEN 14 mg/dL (7-18); eGFR NON AFRICAN AMERICAN > 90 mL/min (90-120)
[2020-02-13 06:48] LABS: PLATELET COUNT 131 10x3/uL (130-400)
--- NOTE | 2020-02-13 06:54 | NUR ---
POTASSIUM LEVEL 3.2 THIS AM. GAVE 40 MEQ K DUR PO PER THE ELECTROLYTE PROTOCOL. RE-CHECK PLACED FOR 1100.
[2020-02-13 09:01] VITALS: BP 172/98
[2020-02-13 12:37] VITALS: BP 135/88
--- NOTE | 2020-02-13 14:26 | NUR ---
Nutrition follow-up: Diet advanced to full liquids today. Pt very [place]; Reports she is taking it slow. Labs reviewed WT: 170# ProcalAmine PPN started @ 75 ml/hr RDN following.
[2020-02-13 16:47] VITALS: BP 144/88
--- NOTE | 2020-02-13 18:51 | NUR ---
EATING DINNER, WITHOUT DISTRESS.
--- NOTE | 2020-02-13 19:30 | NUR ---
PT LYING IN BED RESTING WITHOUT DISTRESS, CONFUSED TO SITUATION AT TIMES. CAN EASILY REORIENT. IV RIGHT WRIST INFUSING PROCAL @ 75. PT INCONTINENT OF DARK GREEN LOOSE STOOL. AWAIS CARE PROVIDED, LINENS CHANGED. DENIES NEEDS. CL IN REACH, WILL CTM
[2020-02-13 20:00] VITALS: BP 138/81
--- NOTE | 2020-02-13 21:45 | NUR ---
PT PLACED ON AND OFF BEDPAN. HAD LARGE DARK GREEN LOOSE STOOL. AWAIS CARE PROVIDED, WILL CTM
[2020-02-14] VITALS: BP 162/82
[2020-02-14 04:00] VITALS: BP 169/85
--- NOTE | 2020-02-14 04:15 | NUR ---
PT INCONTINENT OF LOOSE STOOL. BATH GIVEN AT THIS TIME, MAURER CARE PROVIDED
[2020-02-14 06:45] LABS: BASOPHILS 0.2 % (0-2); EOSINOPHILS 2.8 % (0-7); HEMATOCRIT 32.7 % (36.0-48.0); HEMOGLOBIN 10.8 g/dL (12-16); IMMATURE GRANULOCYTES 1.4 % (0-5); LYMPHOCYTES 12.4 % (15-50); MCH 30.4 pg (26.0-34.0); MCV 92.1 fL (80.0-100.0); MEAN PLATELET VOLUME 8.9 fL (7.4-10.4); MONOCYTES 12.4 % (2-11); NEUTROPHILS 70.8 % (40-80); PLATELET COUNT 154 10x3/uL (130-400); RBC 3.55 10x6/uL (4.00-5.40); RDW 12.2 % (11.5-14.5)
[2020-02-14 06:53] LABS: WBC 5.7 10x3/uL (4.8-10.8)
[2020-02-14 06:54] LABS: CALC OSMOLALITY 274 mosm/kg (275-300); CALCIUM 8.5 mg/dL (8.5-10.1); CARBON DIOXIDE 27.8 mmol/L (21.0-32.0); CHLORIDE - SERUM 102 mmol/L (98-107); CREATININE - SERUM 0.5 mg/dL (0.6-1.3); GLUCOSE 121 mg/dL (74-106); MAGNESIUM - SERUM 1.8 mg/dL (1.8-2.4); PHOSPHOROUS 3.3 mg/dL (2.5-4.9); POTASSIUM - SERUM 3.4 mmol/L (3.5-5.1); SODIUM 136 mmol/L (136-145); UREA NITROGEN 17 mg/dL (7-18); eGFR NON AFRICAN AMERICAN > 90 mL/min (90-120)
[2020-02-14 09:10] VITALS: BP 161/78
--- NOTE | 2020-02-14 09:16 | NUR ---
SHE IS A LITTLE CONFUSED THIS MORNING. SHE IS HAVING LOOSE STOOLS. SHE TURNS FROM SIDE TO SIDE TO HELP CLEAN HER UP. THE CALL LIGHT IS WITHIN REACH AND THE BED ALARM IS ON.
[2020-02-14 12:40] VITALS: BP 146/81
--- NOTE | 2020-02-14 15:29 | NUR ---
Rehab Prescreening Consult recieved and the chart has been reviewed. She is a good ARU candidate when ready for discharge. Currently the ARU has no open female beds. Will discuss with the CM. Blanquita Ndiaye RN Clinical Liaison, Rehab
[2020-02-14 17:15] VITALS: BP 112/70
--- NOTE | 2020-02-14 17:48 | NUR ---
OT NOTE: PT COMPLETED UB HYGIENE TASKS WITH SETUP. PT COMPLETED POSITONING WITH MIN/MOD A. [phone] THANK YOU,ZULLY BARRAZA
[2020-02-14 20:00] VITALS: BP 149/85
--- NOTE | 2020-02-14 20:00 | NUR ---
PT LYING IN BED WITHOUT DISTRESS, AOX3. CONFUSED TO SITUATION AT TIMES. IV RIGHT WRIST INFUSING PROCAL @ 50. MAURER IN PLACE. BLADDER TRAINING TO REMOVE IN AM. PT IS FEELING URGE WHEN CLAMPING. DENIES NEEDS AT THIS TIME, CL IN REACH, WILL CTM
[2020-02-15] VITALS: BP 161/83
[2020-02-15 04:00] VITALS: BP 159/86
--- NOTE | 2020-02-15 04:52 | NUR ---
PT PULLED IV OUT WITH CATHETER INTACT. RESITED 22G IV TO LEFT FA X1 ATTEMPT
[2020-02-15 05:35] LABS: BASOPHILS 0.3 % (0-2); EOSINOPHILS 3.3 % (0-7); HEMATOCRIT 33.4 % (36.0-48.0); HEMOGLOBIN 11.3 g/dL (12-16); IMMATURE GRANULOCYTES 1.7 % (0-5); LYMPHOCYTES 14.1 % (15-50); MCH 31.2 pg (26.0-34.0); MCHC 33.8 g/dL (31.0-37.0); MCV 92.3 fL (80.0-100.0); MEAN PLATELET VOLUME 9.1 fL (7.4-10.4); MONOCYTES 10.1 % (2-11); NEUTROPHILS 70.5 % (40-80); PLATELET COUNT 160 10x3/uL (130-400); RBC 3.62 10x6/uL (4.00-5.40); RDW 12.3 % (11.5-14.5)
[2020-02-15 06:00] LABS: ALBUMIN 2.6 g/dL (3.4-5.0); ALKALINE PHOSPHATASE 61 U/L (30-120); ALT (SGPT) 11 U/L (10-68); BILIRUBIN - TOTAL 0.23 mg/dL (0.2-1.3); CALC OSMOLALITY 277 mosm/kg (275-300); CALCIUM 8.5 mg/dL (8.5-10.1); CARBON DIOXIDE 27.6 mmol/L (21.0-32.0); CHLORIDE - SERUM 104 mmol/L (98-107); CREATININE - SERUM 0.6 mg/dL (0.6-1.3); GLUCOSE 109 mg/dL (74-106); POTASSIUM - SERUM 3.6 mmol/L (3.5-5.1); PROTEIN - SERUM 5.5 g/dL (6.4-8.2); SODIUM 138 mmol/L (136-145); UREA NITROGEN 15 mg/dL (7-18); eGFR NON AFRICAN AMERICAN > 90 mL/min (90-120)
--- NOTE | 2020-02-15 07:32 | NUR ---
ALERT AND ORIENTED. LUNGS CLEAR BILATERALLY. HEART SOUNDS S1 AND S2 HEARD IN ALL GRANDE. BOWEL SOUNDS ACTIVE X 4. IV TO LFA PATENT WITHOUT REDNESS. BED LOW. BED ALARM ON. CALL INGRAM AND PERSONAL ITEMS IN REACH. WILL CONTINUE TO MONITOR.
--- NOTE | 2020-02-15 10:25 | NUR ---
PATIENT ASSISTED TO BSC AND THEN TO CHAIR AT BEDSIDE. LARGE VOID NOTED TO BSC. MAX TWO PERSON ASSIST NEEDED FOR TRANSFER. CHAIR ALARM ON. CALL INGRAM AND PERSONAL ITEMS IN REACH.
[2020-02-15 11:05] VITALS: BP 151/83
--- NOTE | 2020-02-15 12:26 | NUR ---
OT NOTE: PRACTICED SIT TO STAND EXS FOR UE STRENGTHENING FROM CHAIR LEVEL AND REQUIRED MOD ASSIST X 2; ABLE TO AMB 4-5 STEPS FORWARD AND BACKWARD WITH MOD ASSIST, WALKER, AND CONTINUAL CUES FOR POSTURE AND BODY POSITIONING ( PT STAYS BENT OVER WITH HEAD DOWN WITHOUT VERBAL CUES)..SIMPLE GROOMING TASKS; EDUCATED ON STRENGTHENING EXS WHILE IN THE CHAIR.. PT DOING WELL TOLERATING SITTING UP..DID NOT WANT TO GO BACK TO BED AT THIS TIME. CONT WITH MILD CONFUSION. SUNNI PACKER, OTR/L [phone]
--- NOTE | 2020-02-15 13:20 | NUR ---
Nutrition follow-up: Pt currently tolerating a regular diet with po intake ~70% average of last 3 meals Labs reviewed Wt: 170# +BM x 2 02/13 Pt waiting for rehab admission RDN following.
[2020-02-15 15:07] VITALS: BP 147/81
[2020-02-15 18:58] VITALS: BP 164/97
[2020-02-15 20:00] VITALS: BP 100/40
[2020-02-16] VITALS: BP 174/84
--- NOTE | 2020-02-16 03:44 | NUR ---
I have reviewed this patient and I concur with the Shift Assessment completed by the Licensed Practical Nurse today this shift.
[2020-02-16 05:05] LABS: BASOPHILS 0.3 % (0-2); HEMATOCRIT 35.4 % (36.0-48.0); HEMOGLOBIN 11.5 g/dL (12-16); LYMPHOCYTES 11.1 % (15-50); MCH 30.3 pg (26.0-34.0); MCHC 32.5 g/dL (31.0-37.0); MCV 93.2 fL (80.0-100.0); MEAN PLATELET VOLUME 9.2 fL (7.4-10.4); NEUTROPHILS 75.6 % (40-80); PLATELET COUNT 175 10x3/uL (130-400); RDW 12.5 % (11.5-14.5); WBC 6.7 10x3/uL (4.8-10.8)
[2020-02-16 05:21] LABS: ALBUMIN 2.8 g/dL (3.4-5.0); ALKALINE PHOSPHATASE 64 U/L (30-120); ALT (SGPT) 11 U/L (10-68); CALC OSMOLALITY 269 mosm/kg (275-300); CALCIUM 8.6 mg/dL (8.5-10.1); CARBON DIOXIDE 27.3 mmol/L (21.0-32.0); CHLORIDE - SERUM 101 mmol/L (98-107); CREATININE - SERUM 0.5 mg/dL (0.6-1.3); GLUCOSE 105 mg/dL (74-106); POTASSIUM - SERUM 3.6 mmol/L (3.5-5.1); PROTEIN - SERUM 5.8 g/dL (6.4-8.2); SODIUM 135 mmol/L (136-145); UREA NITROGEN 13 mg/dL (7-18); eGFR NON AFRICAN AMERICAN > 90 mL/min (90-120)
--- NOTE | 2020-02-16 07:44 | NUR ---
PT IS RESTING IN BED WITH EYES CLOSED. RESPIRATIONS ARE EVEN AND UNLABORED. PT IS EASILY AROUSED WITH VERBAL STIMULATION. PT IS AAO X 4 UPON AROUSAL. PT REQUESTS ASSISTANCE WITH BEDPAN. BED ASSISTANCE GIVEN. PT STATES URGE TO DEFECATE. PT UNABLE TO DEFECATE AT THIS TIME. ALL FALL PRECAUTIONS IN PLACE. PT ENCOURAGED TO REPOSITION. TRAPEZE BAR ON BED FOR ASSISTANCE WITH REPOSITIONING IN BED. TCDB ENCOURAGED. PT DENIES PRESENCE OF PAIN/N/V AT THIS TIME. BED IS IN THE LOWEST POSITION. CALL LIGHT AND BEDSIDE TABLE ARE WITHIN REACH. SIDE RAILS X 2. PT DENIES FURTHER NEEDS. WILL CONT TO MONITOR.
[2020-02-16 09:41] VITALS: BP 180/93
--- NOTE | 2020-02-16 10:18 | MORECARE ---
CASE MANAGEMENT DISCHARGE SUMMARY PATIENT: KEILA KENT UNIT: [id number] ADM DATE: 02/08/20 AGE: 85 : 36 SEX: F ROOM/BED: D.2220 AUTHOR: MEGAN HENDERSON PHYSICIAN: REFERRING PHYSICIAN: JHONY VILLARREAL MD DATE OF SERVICE: 02/16/20 Discharge Plan Patient Name: KEILA KENT [facility] [facility] 1935 Planned Disposition: Inpatient Rehab Anticipated Discharge Date: Discharge Date: Expected LOS: Initial Reviewer: [email or web address] Initial Review Date: 02/08/2020 Generated: 02/16/20 11:18 am DCPIA - Discharge Planning Initial Assessment Updated by [id number]: Keke Fry on 02/16/20 10:17 am * Is the patient Alert and Oriented? Yes * How many steps to enter\exit or inside your home? * PCP KAIT * Pharmacy [facility] * Preadmission Environment Home with Family * ADLs Independent * Equipment Cane Rolling Walker * List name and contact numbers for known caregivers / representatives who currently or will assist patient after discharge: MICK (SPOUSE) [phone] * Verbal permission to speak to the caregivers and representatives has been obtained from the patient. N/A * Community resources currently utilized None * Additional services required to return to the preadmission environment? Yes * Can the patient safely return to the preadmission environment? Yes * Has this patient been hospitalized within the prior 30 days at any hospital? No Patient Name: KEILA KENT Page [phone] at 1018 All edits/amendments must be made on the electronic document DICTATION DATE: 02/16/20 1018 ASSISTANT MANAGER BILINGUAL: ANABEL 02/16/20 1018 RPT#: [id number] DC DATE: STATUS: ADM IN [facility] [address] [place] [address] END OF REPORT
--- NOTE | 2020-02-16 10:26 | MORECARE ---
CASE MANAGEMENT DISCHARGE SUMMARY PATIENT: KEILA KENT UNIT: [id number] ADM DATE: 02/08/20 AGE: 85 : 36 SEX: F ROOM/BED: D.2220 AUTHOR: SANTIAGO,DOC PHYSICIAN: REFERRING PHYSICIAN: JHONY VILLARREAL MD DATE OF SERVICE: 02/16/20 Discharge Plan Patient Name: KEILA KENT Facility: [facility]:[place] : 1935 Planned Disposition: Inpatient Rehab Anticipated Discharge Date: Discharge Date: Expected LOS: Initial Reviewer: [id number] Initial Review Date: 02/08/2020 Generated: 02/16/20 11:26 am Comments DCP- Discharge Planning Updated by [id number]: Keke Fry on 02/16/20 9:[address] Patient Name: KEILA KENT Admission Status: ER Accout number: [id number] Admission Date: 02-08-2020 : 1935 Admission Diagnosis:INTESTINAL ADHESIONS [BANDS], WITH PARTIAL OBSTRUCTION Attending: SARA Current LOS: 8 Anticipated DC Date: Planned Disposition: Inpatient Rehab Primary Insurance: MEDICARE A & B Discharge Planning Comments: CM met with patient to complete initial dc planning assessment. CM educated patient on the CM role and verbal consent given by patient to complete assessment. Patient lives at home with her spouse where she is independent with her care. At discharge patient plans to go to inpatient rehab at [facility] and feels this is a safe discharge. CM discussed availability of home health, rehab services, and medical equipment. Once DC from INpatient rehab she plans to go home with her spouse. JORGE sigend and IMM served and signed. Patient denied known discharge needs at this time. CM will continue to follow and will assist as needed with dc plans/needs. Supervisor Detasseling Crew: Keke Fry DCPIA - Discharge Planning Initial Assessment Updated by [id number]: Keke Fry on 02/16/20 10:17 am * Is the patient Alert and Oriented? Yes * How many steps to enter\exit or inside your home? * PCP K[facility] * Pharmacy [facility] * Preadmission Environment Home with Family * ADLs Independent * Equipment Cane Rolling Walker * List name and contact numbers for known caregivers / representatives who currently or will assist patient after discharge: MICK (SPOUSE) [phone] * Verbal permission to speak to the caregivers and representatives has been obtained from the patient. N/A * Community resources currently utilized None * Additional services required to return to the preadmission environment? Yes * Can the patient safely return to the preadmission environment? Yes * Has this patient been hospitalized within the prior 30 days at any hospital? No Coverage Notice Reviewer: [id number] Lance Fry Notice Issued Date-Time: 02/16/2020 9:50 Notice Type: IM Discharge Notice Notice Delivered To: Patient Relationship to Patient: Taker Off Name: Delivery Method: HAND - Hand Delivered Katie Days: Prior Verbal Notification: Recipient Understood Notice: Yes Recipient Signature: Yes Med Rec Note Co-signed by Attending: Coverage Notice Comment: imm served and explained. Reviewer: [id number] Lance Fry Notice Issued Date-Time: 02/16/2020 9:50 Notice Type: Patient Choice Letter Notice Delivered To: Patient Relationship to Patient: Taker Off Name: Delivery Method: HAND - Hand Delivered Katie Days: Prior Verbal Notification: Recipient Understood Notice: Yes Recipient Signature: Yes Med Rec Note Co-signed by Attending: Coverage Notice Comment: JORGE, for inpatient rehab Last DP export: 02/16/20 9:18 a Patient Name: KEILA KNET Page [phone] at 1026 All edits/amendments must be made on the electronic document DICTATION DATE: 02/16/20 1026 MANAGER GRANT: ANABEL 02/16/20 1026 RPT#: [id number] DC DATE: STATUS: ADM IN [facility] [address] [place] [address] END OF REPORT
--- NOTE | 2020-02-16 12:52 | NUR ---
PIV TO LEFT FA WITH REDNESS ANDTENDERNESS. PIV REMOVED PER PT REQUEST WITH CATHETER TIP INTACT. DRESSING APPLIED. FALL PRECAUTIONS IN PLACE. BED IS IN THE LOWEST POSITION. CALL LIGHT AND BEDSIDE TABLE ARE WITHIN REACH. SIDE RAILS X 2. PT DENIES FURTHER NEEDS. WILL CONT TO MONITOR.
--- NOTE | 2020-02-16 13:02 | NUR ---
OT NOTE: PT NOT DOING WELL TODAY. REQUIRED INCREASED ASSIST FOR BED MOB AND EOB SITTING. PT MORE CONFUSED AND HAVING INCREASED DIFFICULTY FOLLOWING COMMANDS. ATTEMPTED TO AMB TO BATHROOM WITH WALKER, HOWEVER, PT WAS UNABLE TO MAKE IT THAT FAR AND HAD TO HAVE BS COMMODE PLACED UNDER HER. NO MSMT TAKEN BUT PT VOIDED LARGE AMOUNT (CATH WAS REMOVED YESTERDAY) . AFTER REST BREAK, WE ATTEMPTED TO AMB PT AGAIN, HOWEVER, SHE COULD ONLY GO A FEW STEPS AND BEGAN LEANING ON WALKER AND COULD NOT PUSH HERSELF BACK UP WITH ARMS. EXTENSIVE ASSIST X 2 TO GET PT BACK ON TO BED. MAX ASSIST FOR SIT TO SUPINE AND MAX ASSIST X 2 TO REPOSITION. UNSURE WHATS CAUSING THE CHANGE IN FUNCTION. SUNNI CABRERA, OTR/L [phone]
[2020-02-16 13:45] VITALS: BP 179/92
[2020-02-16 16:00] VITALS: BP 169/99
--- NOTE | 2020-02-16 16:30 | NUR ---
22G PIV TO LEFT AC. PT TOLERATED WELL.
--- NOTE | 2020-02-16 16:33 | NUR ---
OT NOTE: PT COMPLETED SIDE ROLLING MOD A. PT COMPLETED SUPINE TO SIT WITH MOD A. PT COMPLETED UB HYGIENE TASKS WITH MIN A. PT EXHIBITED DECREASED FUNCTIONAL INDEPENDENCE. [id number] ZULLY BARRAZA
[2020-02-16 17:08] LABS: AEROBE ID Final report (())
--- NOTE | 2020-02-16 18:15 | NUR ---
PT REPORTS NAUSEA. NO VOMITING NOTED. WILL ADMINISTER ANTIEMETIC. SEE EMAR.
[2020-02-16 19:08] LABS: OVA + PARASITE EXAM Final report (())
[2020-02-16 20:00] VITALS: BP 172/97
[2020-02-16 23:22] LABS: BACTERIA FEW /hpf (NEGATIVE); BILIRUBIN NEGATIVE (NEGATIVE); EPITHELIAL CELLS RARE /hpf (0-5); GLUCOSE NEGATIVE (NEGATIVE); KETONE SMALL mg/dL (NEGATIVE); NITRITE NEGATIVE (NEGATIVE); RED CELLS - URINE 0-5 /hpf (0-5); SPECIFIC GRAVITY 1.015 (1.005-1.020); UROBILINOGEN NORMAL (NORMAL)
[2020-02-17 04:00] VITALS: BP 160/80
[2020-02-17 06:44] LABS: BASOPHILS 0.1 % (0-2); EOSINOPHILS 0 % (0-7); HEMATOCRIT 40.6 % (36.0-48.0); HEMOGLOBIN 13.7 g/dL (12-16); IMMATURE GRANULOCYTES 1.2 % (0-5); MCH 31.5 pg (26.0-34.0); MCHC 33.7 g/dL (31.0-37.0); MCV 93.3 fL (80.0-100.0); MEAN PLATELET VOLUME 9.1 fL (7.4-10.4); MONOCYTES 4.5 % (2-11); NEUTROPHILS 90.2 % (40-80); PLATELET COUNT 150 10x3/uL (130-400); RBC 4.35 10x6/uL (4.00-5.40); RDW 12.5 % (11.5-14.5); WBC 6.7 10x3/uL (4.8-10.8)
[2020-02-17 07:00] LABS: ALBUMIN 3.1 g/dL (3.4-5.0); ANION GAP 11.8 mmol/L (8-16); BILIRUBIN - TOTAL 0.49 mg/dL (0.2-1.3); CALCIUM 8.7 mg/dL (8.5-10.1); CARBON DIOXIDE 27.1 mmol/L (21.0-32.0); MAGNESIUM - SERUM 1.8 mg/dL (1.8-2.4); POTASSIUM - SERUM 3.9 mmol/L (3.5-5.1); PROTEIN - SERUM 6.7 g/dL (6.4-8.2)
[2020-02-17 07:11] LABS: CREATININE - SERUM 0.8 mg/dL (0.6-1.3)
--- NOTE | 2020-02-17 08:04 | NUR ---
RESTING IN BED, EYES CLOSED, NO DISTRESS NOTED, IV INFUSING PER LAC, CONT TO MONITOR BOWELS MOVEMENTS
[2020-02-17 09:09] VITALS: BP 169/84
[2020-02-17 13:15] VITALS: BP 133/73
[2020-02-17 17:46] VITALS: BP 129/78
[2020-02-17 20:00] VITALS: BP 85/47
--- NOTE | 2020-02-17 21:54 | NUR ---
PT SEEMS TO HAVE DIFFICULTY SWALLOWING. CRUSHED PILLS AND GAVE TO PT IN VANILLA PUDDING. PT ATE MOST OF PUDDING CUP. TOLERATED WELL. ADDED THICKENER TO CHOLESTRAN MIXTURE - PT TOLERATED WELL. COMPLETE ASSESSMET PER FLOW-SHEET. WILL CONTINUE TO MONITOR.
--- NOTE | 2020-02-17 23:53 | NUR ---
Rehab Note- Continue to follow at this time. She has been febrile. Will continue to follow at this time. Johanne Roach RN Clinical Liaison, [facility] Rehab
[2020-02-18] VITALS: BP 151/76
[2020-02-18 04:00] VITALS: BP 108/61
--- NOTE | 2020-02-18 05:17 | NUR ---
PT IS ALERT & MORE ORIENTED THIS MORNING. PT SWALLOWED THYROID PILL AND DRANK SIPS OF SPRITE WITH NO DIFFICULTY. LARGER PILLS ARE MORE OF A PROBLEM FOR PT TO SWALLOW AND NEED TO BE CRUSHED. CHANGED OUT PURWICK CATHETER FOR NEW ONE. NO OTHER NEEDS. WILL REASSESS AND CONTINUE TO MONITOR.
[2020-02-18 05:58] LABS: BASOPHILS 0.4 % (0-2); EOSINOPHILS 0.4 % (0-7); HEMATOCRIT 35.5 % (36.0-48.0); HEMOGLOBIN 11.7 g/dL (12-16); IMMATURE GRANULOCYTES 0.7 % (0-5); LYMPHOCYTES 6.9 % (15-50); MCH 30.8 pg (26.0-34.0); MCV 93.4 fL (80.0-100.0); MEAN PLATELET VOLUME 8.9 fL (7.4-10.4); MONOCYTES 6.6 % (2-11); PLATELET COUNT 128 10x3/uL (130-400); RDW 12.7 % (11.5-14.5); WBC 5.6 10x3/uL (4.8-10.8)
[2020-02-18 06:32] LABS: ALBUMIN 2.8 g/dL (3.4-5.0); ANION GAP 8.3 mmol/L (8-16); BILIRUBIN - TOTAL 0.43 mg/dL (0.2-1.3); CALCIUM 8.3 mg/dL (8.5-10.1); CARBON DIOXIDE 27.9 mmol/L (21.0-32.0); CREATININE - SERUM 0.9 mg/dL (0.6-1.3); POTASSIUM - SERUM 4.2 mmol/L (3.5-5.1)
--- NOTE | 2020-02-18 08:13 | NUR ---
resting in bed, eyes closed, iv per lac, cont to monitor temps and bp today, possible transfer to rehab
[2020-02-18 08:59] VITALS: BP 104/56
[2020-02-18 12:10] VITALS: BP 132/58
[2020-02-18 15:25] LABS: NITRITE NEGATIVE (NEGATIVE)
[2020-02-18 15:26] LABS: BILIRUBIN NEGATIVE (NEGATIVE); GLUCOSE NEGATIVE (NEGATIVE); KETONE NEGATIVE (NEGATIVE); UROBILINOGEN NORMAL (NORMAL)
--- NOTE | 2020-02-18 16:00 | NUR ---
AFEBRILE TODAY, IN AND OUT CATHED FOR URINE SPECIMEN, GEORGIANA WELL
[2020-02-18 16:50] VITALS: BP 96/53
[2020-02-18 20:00] VITALS: BP 112/61
[2020-02-19] VITALS: BP 105/55
[2020-02-19 04:00] VITALS: BP 120/69
[2020-02-19 05:08] LABS: BASOPHILS 0.5 % (0-2); EOSINOPHILS 1.6 % (0-7); HEMATOCRIT 31.5 % (36.0-48.0); HEMOGLOBIN 10.3 g/dL (12-16); IMMATURE GRANULOCYTES 0.5 % (0-5); LYMPHOCYTES 14.4 % (15-50); MCH 30.6 pg (26.0-34.0); MCHC 32.7 g/dL (31.0-37.0); MCV 93.5 fL (80.0-100.0); MEAN PLATELET VOLUME 8.7 fL (7.4-10.4); MONOCYTES 11.7 % (2-11); NEUTROPHILS 71.3 % (40-80); PLATELET COUNT 119 10x3/uL (130-400); RBC 3.37 10x6/uL (4.00-5.40); RDW 12.7 % (11.5-14.5)
[2020-02-19 05:22] LABS: WBC 3.7 10x3/uL (4.8-10.8)
[2020-02-19 05:38] LABS: ALBUMIN 2.6 g/dL (3.4-5.0); ANION GAP 9.2 mmol/L (8-16); BILIRUBIN - TOTAL 0.29 mg/dL (0.2-1.3); CARBON DIOXIDE 26.9 mmol/L (21.0-32.0); CREATININE - SERUM 0.9 mg/dL (0.6-1.3); POTASSIUM - SERUM 4.1 mmol/L (3.5-5.1); PROTEIN - SERUM 5.5 g/dL (6.4-8.2)
--- NOTE | 2020-02-19 06:50 | NUR ---
A&O X3, RESTING IN BED WITH EYES OPEN. NO C/O PAIN. NO S/S OF ACUTE DISTRESS NOTED. UP WITH PHYSICAL THERAPY. BILATERAL HEARING AID, LAC [place]. SCDS ON. NO FREE WATER. ON ELECTROLYTE PROTOCOL. CRUSH MEDS WITH VANILLA PUDDING. IV TO LEFT AC, SL. SITE PATENT WITHOUT REDNESS OR SWELLING. AWAITING REHAB. DENIES ANY NEEDS AT THIS TIME. CALL LIGHT IN REACH. ALARM ON. WILL CONTINUE TO MONITOR.
--- NOTE | 2020-02-19 08:00 | NUR ---
LYING IN BED,WITHOUT DISTRESS.FALL PREVENTION IN PLACE
[2020-02-19 08:27] VITALS: BP 120/63
--- NOTE | 2020-02-19 12:04 | NUR ---
PATIENT DC HOME WITH SISTER VIA WHEELCHAIR. WENT OVER NEW APPOINTMENTS WITH PATIENT AND ANSWERED ANY QUESTIONS, VERBALIZED UNDERSTANDING OF INSTRUCTIONS. DENIES ANYTHING FURTHER.
--- NOTE | 2020-02-19 16:02 | NUR ---
OT NOTE: PT REQUIRED MOD A WITH SUPINE TO SIT. PT REQUIRED MOD A WITH SIT TO STAND. PT REQUIRED MAX A WITH PAM BRACE. PT REQUIRED MOD A WITH ADL MOB . PT EXHIBITED DECREASED LE COORNDINATION WITH MOBILITY. PT HAD C/O OF PAIN. NURSING AWARE. PT REQUIRED MAX A WITH LB HYGIENE. PT REQUIRED MAX A WITH PAM/DOFF SHOES AND SOCKS. [phone] JASMIN DAMON COTA
--- NOTE | 2020-02-19 16:25 | NUR ---
OT NOTE: PT COMPLETED SUPINE TO SIT WITH MOD A. PT COMPLETED BED TO CHAIR TSF WITH MOD A. PT EXHIBITED DIFFICULTY COORDINATION OF LE. PT COMPLETED LB HYGIENE TASKS WITH MOD/MAX A. PT STATED SHE HAS HAD SEVERAL KNEE PROCEDURES. [phone] THANK YOU,ZULLY BARRAZA
[2020-02-19 16:46] VITALS: BP 116/66
--- NOTE | 2020-02-19 18:52 | NUR ---
A&O RESTING IN BED WITH EYES OPEN. NO C/O PAIN. NO S/S OF ACUTE DISTRESS NOTED. DENIES ANY NEEDS AT THIS TIME. CALL LIGHT IN REACH. WILL CONTINUE TO MONITOR.
[2020-02-19 20:00] VITALS: BP 114/61
[2020-02-20] VITALS: BP 111/59
[2020-02-20 04:00] VITALS: BP 144/81
[2020-02-20 08:32] LABS: BASOPHILS 0.2 % (0-2); EOSINOPHILS 0.7 % (0-7); HEMATOCRIT 35.6 % (36.0-48.0); HEMOGLOBIN 11.5 g/dL (12-16); IMMATURE GRANULOCYTES 0.2 % (0-5); LYMPHOCYTES 8.2 % (15-50); MCH 30.4 pg (26.0-34.0); MCHC 32.3 g/dL (31.0-37.0); MCV 94.2 fL (80.0-100.0); MEAN PLATELET VOLUME 8.8 fL (7.4-10.4); MONOCYTES 8.4 % (2-11); NEUTROPHILS 82.3 % (40-80); RBC 3.78 10x6/uL (4.00-5.40); RDW 12.7 % (11.5-14.5)
[2020-02-20 08:35] LABS: PLATELET COUNT 151 10x3/uL (130-400); WBC 5.6 10x3/uL (4.8-10.8)
[2020-02-20 08:41] VITALS: BP 131/74
[2020-02-20 08:46] LABS: CALC OSMOLALITY 279 mosm/kg (275-300); CALCIUM 8.5 mg/dL (8.5-10.1); CARBON DIOXIDE 27.1 mmol/L (21.0-32.0); CHLORIDE - SERUM 103 mmol/L (98-107); CREATININE - SERUM 0.7 mg/dL (0.6-1.3); GLUCOSE 127 mg/dL (74-106); POTASSIUM - SERUM 3.7 mmol/L (3.5-5.1); SODIUM 138 mmol/L (136-145); UREA NITROGEN 19 mg/dL (7-18); eGFR NON AFRICAN AMERICAN 84 mL/min (90-120)
[2020-02-20 08:49] LABS: MAGNESIUM - SERUM 1.8 mg/dL (1.8-2.4)
--- NOTE | 2020-02-20 10:41 | NUR ---
PATIENT IN BED EATING BREAKFAST. IN ROOM. TOOK AM MEDS CRUSHED IN PUDDING WITHOUT DIFFICULTY. SCD'S IN PLACE. PURWICK IN PLACE. DENIES PAIN. FALL PRECAUTIONS IN PLACE. BED LOW POSITION. CALL LIGHT IN REACH. DENIES ANY OTHER NEEDS.
[2020-02-20 12:07] VITALS: BP 132/75
--- NOTE | 2020-02-20 13:20 | NUR ---
OT NOTE: EXTENSIVE PRACTICE ON BED MOB AND PROPER BODY POSITION TO HELP WITH MOBILITY. PT CONT TO HAVE A VERY HARD TIME PERFORMING SUPINE TO SIT. SITTING BALANCE WITH FREQ VERBAL INSTRUCTION AND MOD ASSIST. SIT TO STAND WITH MOD ASSIST; CONTINUAL CUES FOR WT SHIFTING FORWARD SHE LEANS BACKWARDS DURING MOBILTIY. SIMPLE GROOMING; UE STRENGTHENING EXS. TRANSFERRED FROM BED TO CHAIR WITH WALKER AND MOD ASSIST X 2. RECOMMEND IP REHAB WHEN MEDICALLY STABLE SUNNI PACKER, OTR/L [phone]
--- NOTE | 2020-02-20 15:30 | NUR ---
REMOVED SALINE LOCK FROM RIGHT AC. 22 GUAGE INSERTED IN RIGHT ARM.
--- NOTE | 2020-02-20 15:33 | NUR ---
Nutrition Follow-up: Diet: Regular, NO FREE WATER PO intake: ~50% average. She reports that her appetite is "not bad." She does c/o dry mouth. She is interested in getting Chocolate Boost on meal trays. Last BM: 02/15/20 x 4. Wt: 170# (02/09/20), no weight weight Meds noted: micro-k, lasix, HCTZ. Labs noted: BUN 19(H), Glu 127(H) Recommend getting new weight on patient. Will add Boost TID. Recommend continue current diet. Encouraged PO Intake. RD following.
--- NOTE | 2020-02-20 16:35 | NUR ---
OT NOTE: (AM) PT COMPLETED SUPINE TO SIT WITH MAX A X2. PT COMPLETED SIT TO STAND WITH MOD/MAX A X2. PT COMPLETED BED TO CHAIR TSF WITH R/W REQUIRED MAX A X 2. (PM) PT COMPLETED CHAIR TO BED TSF WITH MAX A X2. PT COMPLETED TOILETING TASKS WITH MAX A X2. PT REQUIRED TOTAL A WITH TOILET HYGIENE TASKS . PT REQUIRED MAX A WITH GARMENT MANAGEMENT. PT FATIGUES QUICKLY AND EXHIBITED P+ TO FAIR ACTIVITY TOLERANCE. [id number];[phone] THANK YOU,ZULLY BARRAZA
[2020-02-20 16:42] VITALS: BP 136/67
[2020-02-20 20:00] VITALS: BP 122/72
[2020-02-21] VITALS: BP 123/69
--- NOTE | 2020-02-21 02:47 | NUR ---
I have reviewed this patient and I concur with the Shift Assessment completed by the Licensed Practical Nurse today this shift.
[2020-02-21 04:00] VITALS: BP 123/69
--- NOTE | 2020-02-21 06:45 | NUR ---
A&O RESTING IN BED WITH EYES OPEN. NO C/O PAIN. NO S/S OF ACUTE DISTRESS NOTED. UP WITH PHYSICAL THERAPY. VERY CRAIG. BILATERAL HEARING AIDS. PUREWICK IN PLACE. SCDS ON. IV TO LEFT FOREARM, SL. SITE PATENT WITHOUT REDNESS OR SWELLING. CRUSH MEDS WITH PUDDING. DENIES ANY NEEDS AT THIS TIME. CALL LIGHT IN REACH. WILL CONTINUE TO MONITOR.
[2020-02-21 09:11] VITALS: BP 111/65
--- NOTE | 2020-02-21 11:23 | NUR ---
I have reviewed this patient and I concur with the Shift Assessment completed by the Licensed Practical Nurse today this shift.
[2020-02-21] MEDS ORDERED: LEVOFLOXACIN500 MG PO (11:48)
[2020-02-21] MEDS ORDERED: QUESTRAN LIG1 PACKET PO (11:49)
[2020-02-21 12:22] VITALS: BP 101/62
--- NOTE | 2020-02-21 13:44 | MORECARE ---
CASE MANAGEMENT DISCHARGE SUMMARY PATIENT: KEILA KENT UNIT: [id number] ADM DATE: 02/08/20 AGE: 85 : 36 SEX: F ROOM/BED: D.2220 AUTHOR: SANTIAGO,DOC PHYSICIAN: REFERRING PHYSICIAN: JHONY VILLARREAL MD DATE OF SERVICE: 02/21/20 Discharge Plan Patient Name: KEILA KENT Facility: [facility]:[place] : 1935 Planned Disposition: Inpatient Rehab Anticipated Discharge Date: Discharge Date: Expected LOS: Initial Reviewer: [email or web address] Initial Review Date: 02/08/2020 Generated: 02/21/20 2:44 pm Comments DCP- Discharge Planning Updated by [id number]: Keke Fry on 02/21/20 12:[address] Patient will be discharging to inpatient rehab at [facility] today. at bedside and aware. IMM served and explained. DCP- Discharge Planning Updated by [id number]: Keke Fry on 02/16/20 9:[address] Patient Name: KEILA KENT Admission Status: ER Accout number: [id number] Admission Date: 02-08-2020 : 1935 Admission Diagnosis:INTESTINAL ADHESIONS [BANDS], WITH PARTIAL OBSTRUCTION Attending: SARA Current LOS: 8 Anticipated DC Date: Planned Disposition: Inpatient Rehab Primary Insurance: MEDICARE A & B Discharge Planning Comments: CM met with patient to complete initial dc planning assessment. CM educated patient on the CM role and verbal consent given by patient to complete assessment. Patient lives at home with her spouse where she is independent with her care. At discharge patient plans to go to inpatient rehab at [facility] and feels this is a safe discharge. CM discussed availability of home health, rehab services, and medical equipment. Once DC from INpatient rehab she plans to go home with her spouse. JORGE sigend and IMM served and signed. Patient denied known discharge needs at this time. CM will continue to follow and will assist as needed with dc plans/needs. Nitrator Operator: Keke Fry DCPIA - Discharge Planning Initial Assessment Updated by [id number]: Keke Fry on 02/16/20 10:17 am * Is the patient Alert and Oriented? Yes * How many steps to enter\exit or inside your home? * PCP K[facility] * Pharmacy [facility] * Preadmission Environment Home with Family * ADLs Independent * Equipment Cane Rolling Walker * List name and contact numbers for known caregivers / representatives who currently or will assist patient after discharge: MICK (SPOUSE) [phone] * Verbal permission to speak to the caregivers and representatives has been obtained from the patient. N/A * Community resources currently utilized None * Additional services required to return to the preadmission environment? Yes * Can the patient safely return to the preadmission environment? Yes * Has this patient been hospitalized within the prior 30 days at any hospital? No Coverage Notice Reviewer: [id number] Lance Fry Notice Issued Date-Time: 02/16/2020 9:50 Notice Type: IM Discharge Notice Notice Delivered To: Patient Relationship to Patient: Right Of Way Manager Name: Delivery Method: HAND - Hand Delivered Katie Days: Prior Verbal Notification: Recipient Understood Notice: Yes Recipient Signature: Yes Med Rec Note Co-signed by Attending: Coverage Notice Comment: imm served and explained. Reviewer: [id number] Fry Notice Issued Date-Time: 02/16/2020 9:50 Notice Type: Patient Choice Letter Notice Delivered To: Patient Relationship to Patient: Right Of Way Manager Name: Delivery Method: HAND - Hand Delivered Katie Days: Prior Verbal Notification: Recipient Understood Notice: Yes Recipient Signature: Yes Med Rec Note Co-signed by Attending: Coverage Notice Comment: JORGE, for inpatient rehab Last DP export: 02/16/20 9:26 a Patient Name: KEILA KENT Page [phone] at 1344 All edits/amendments must be made on the electronic document DICTATION DATE: 02/21/20 1344 INSTRUCTIONAL COORDINATOR: ANABEL 02/21/20 1344 RPT#: [id number] DC DATE: STATUS: ADM IN [facility] [address] [place] [address] END OF REPORT
--- NOTE | 2020-02-21 13:48 | NUR ---
NUTRITION FOLLOW UP/CONSULT: INTERVIEW: Met with patient and her . She stated that her appetite has improved and she ate 100% of her breakfast this am. She stated that she drinks about 1 Boost per day. She denied recent N/V/D/C and denied any new issues with chewing/swallowing her food. DIET: Regular Diet SUPPLEMENT: Chocolate Boost TID PO INTAKE: 58% avg x 6 meals WEIGHT: 170 lbs on 02/08, no new wt recorded BM: x 1 on 02/19 SIG MEDS: KCl, Lasix, Mag Sulf, Mag Ox SIG LABS: BUN- 19(H), GFR- 84(L), Albumin- 2.6(L) GOALS: PO intake >/= 65% avg for meals, BM q 3 days, stable dry weight INTERVENTION: Continue current diet and nutritional supplement, encourage po intake RD to continue to follow and monitor patient DHS
--- NOTE | 2020-02-21 13:59 | MORECARE ---
CASE MANAGEMENT DISCHARGE SUMMARY PATIENT: KEILA KENT UNIT: [id number] ADM DATE: 02/08/20 AGE: 85 : 36 SEX: F ROOM/BED: D.2220 AUTHOR: SANTIAGO,DOC PHYSICIAN: REFERRING PHYSICIAN: JHONY VILLARREAL MD DATE OF SERVICE: 02/21/20 Discharge Plan Patient Name: KEILA KENT Facility: [facility]:[place] : 1935 Planned Disposition: Inpatient Rehab Anticipated Discharge Date: Discharge Date: Expected LOS: Initial Reviewer: [id number] Initial Review Date: 02/08/2020 Generated: 02/21/20 2:59 pm Comments DCP- Discharge Planning Updated by [id number]: Keke Fry on 02/21/20 12:[address] imm explained and given again DCP- Discharge Planning Updated by [id number]: Keke Fry on 02/21/20 12:[address] Patient will be discharging to inpatient rehab at [facility] today. at bedside and aware. IMM served and explained. DCP- Discharge Planning Updated by [id number]: Keke Fry on 02/16/20 9:[address] Patient Name: KEILA KENT Admission Status: ER Accout number: [id number] Admission Date: 02-08-2020 : 1935 Admission Diagnosis:INTESTINAL ADHESIONS [BANDS], WITH PARTIAL OBSTRUCTION Attending: SARA Current LOS: 8 Anticipated DC Date: Planned Disposition: Inpatient Rehab Primary Insurance: MEDICARE A & B Discharge Planning Comments: CM met with patient to complete initial dc planning assessment. CM educated patient on the CM role and verbal consent given by patient to complete assessment. Patient lives at home with her spouse where she is independent with her care. At discharge patient plans to go to inpatient rehab at [facility] and feels this is a safe discharge. CM discussed availability of home health, rehab services, and medical equipment. Once DC from INpatient rehab she plans to go home with her spouse. JORGE sigend and IMM served and signed. Patient denied known discharge needs at this time. CM will continue to follow and will assist as needed with dc plans/needs. Optical Scientist: Keke Fry DCPIA - Discharge Planning Initial Assessment Updated by [id number]: Keke Fry on 02/16/20 10:17 am * Is the patient Alert and Oriented? Yes * How many steps to enter\exit or inside your home? * PCP K[facility]IT * [facility]acy [facility] * Preadmission Environment Home with Family * ADLs Independent * Equipment Cane Rolling Walker * List name and contact numbers for known caregivers / representatives who currently or will assist patient after discharge: ZULLY (SPOUSE) [phone] * Verbal permission to speak to the caregivers and representatives has been obtained from the patient. N/A * Community resources currently utilized None * Additional services required to return to the preadmission environment? Yes * Can the patient safely return to the preadmission environment? Yes * Has this patient been hospitalized within the prior 30 days at any hospital? No Coverage Notice Reviewer: [id number] Lance Fry Notice Issued Date-Time: 02/16/2020 9:50 Notice Type: IM Discharge Notice Notice Delivered To: Patient Relationship to Patient: English As A Second Language Instructor Name: Delivery Method: HAND - Hand Delivered Katie Days: Prior Verbal Notification: Recipient Understood Notice: Yes Recipient Signature: Yes Med Rec Note Co-signed by Attending: Coverage Notice Comment: imm served and explained. Reviewer: [email or web address] Lance Fry Notice Issued Date-Time: 02/16/2020 9:50 Notice Type: Patient Choice Letter Notice Delivered To: Patient Relationship to Patient: English As A Second Language Instructor Name: Delivery Method: HAND - Hand Delivered Katie Days: Prior Verbal Notification: Recipient Understood Notice: Yes Recipient Signature: Yes Med Rec Note Co-signed by Attending: Coverage Notice Comment: JORGE, for inpatient rehab Reviewer: [id number] Lance Fry Notice Issued Date-Time: 02/21/2020 13:40 Notice Type: IM Discharge Notice Notice Delivered To: Family Member Relationship to Patient: Spouse English As A Second Language Instructor Name: zully Delivery Method: HAND - Hand Delivered Katie Days: Prior Verbal Notification: Recipient Understood Notice: Yes Recipient Signature: Yes Med Rec Note Co-signed by Attending: Coverage Notice Comment: Last DP export: 02/21/20 12:44 pm Patient Name: KEILA KENT Page [phone] at 1359 All edits/amendments must be made on the electronic document DICTATION DATE: 02/21/201358 GEAR GRINDING MACHINE OPERATOR: ANABEL 02/21/20 135 RPT#: [id number] DC DATE: STATUS: ADM IN [facility] [address] [facility] [place] [address] END OF REPORT
--- NOTE | 2020-02-21 15:29 | NUR ---
OT NOTE: PRACTICED BED MOB INCLUDING SUPINE TO SIT WITH MIN ASSIST, MOD VERBAL CUES, AND EXTENDED TIME TO ALLOW PT TO PERFORM INDEPENDENTLY POSSIBLE. PT WAS INCONT OF STOOL AND REQUIRED MAX ASSIST FOR HYGIENE; AMB APPROX 5 SMALL STEPS IN ORDER TO TRANSFER FROM BED TO CHAIR..CONT TO REQUIRE EXT CUES FOR POSITIONING AND BODY MECHANICS..PT REMAINS WEAK AND HAS INCREASED DIFFICULTY WITH MOVEMENT AND COORDINATION TASKS. ABLE TO PERFORM SIMPLE GROOMING TASKS WITH SET UP ON TRAY TABLE. SUNNI PACKER [phone]
--- NOTE | 2020-02-21 18:25 | NUR ---
A&O SITTING UP IN CHAIR. AT BEDSIDE. NO C/O PAIN. NO S/S OF ACUTE DISTRESS NOTED. CALLED REPORT TO [facility]. ROOM NOT CLEAN YET, AWAITING TRANSFER TO INPATIENT REHAB. DENIES ANY NEEDS AT THIS TIME. CALL LIGHT IN REACH. WILL CONTINUE TO MONITOR.
--- NOTE | 2020-02-22 17:28 | MORECARE ---
CASE MANAGEMENT DISCHARGE SUMMARY PATIENT: KEILA KENT UNIT: [id number] ADM DATE: 02/08/20 AGE: 85 : 36 SEX: F ROOM/BED: D.2220 AUTHOR: SANTIAGO,DOC PHYSICIAN: REFERRING PHYSICIAN: JHONY VILLARREAL MD DATE OF SERVICE: 02/22/20 Discharge Plan Patient Name: KEILA KENT Facility: [facility]:[place] : 1935 Planned Disposition: Inpatient Rehab Anticipated Discharge Date: Discharge Date: 02/21/2020 Expected LOS: Initial Reviewer: [id number] Initial Review Date: 02/08/2020 Generated: 02/22/20 6:28 pm Comments DCP- Discharge Planning Updated by [id number]: Keke Fry on 02/21/20 12:[address] imm explained and given again DCP- Discharge Planning Updated by [id number]: Keke Fry on 02/21/20 12:[address] Patient will be discharging to inpatient rehab at [facility] today. at bedside and aware. IMM served and explained. DCP- Discharge Planning Updated by [id number]: Keke Fry on 02/16/20 9:[address] Patient Name: KEILA KENT Admission Status: ER Accout number: [id number] Admission Date: 02-08-2020 : 1935 Admission Diagnosis:INTESTINAL ADHESIONS [BANDS], WITH PARTIAL OBSTRUCTION Attending: SARA Current LOS: 8 Anticipated DC Date: Planned Disposition: Inpatient Rehab Primary Insurance: MEDICARE A & B Discharge Planning Comments: CM met with patient to complete initial dc planning assessment. CM educated patient on the CM role and verbal consent given by patient to complete assessment. Patient lives at home with her spouse where she is independent with her care. At discharge patient plans to go to inpatient rehab at [facility] and feels this is a safe discharge. CM discussed availability of home health, rehab services, and medical equipment. Once DC from INpatient rehab she plans to go home with her spouse. JORGE sigend and IMM served and signed. Patient denied known discharge needs at this time. CM will continue to follow and will assist as needed with dc plans/needs. [employer] Hat Linux Engineer: Keke Fry DCPIA - Discharge Planning Initial Assessment Updated by [email or web address]: Keke Fry on 02/16/20 10:17 am * Is the patient Alert and Oriented? Yes * How many steps to enter\exit or inside your home? * PCP [facility] * Pharmacy [facility] * Preadmission Environment Home with Family * ADLs Independent * Equipment Cane Rolling Walker * List name and contact numbers for known caregivers / representatives who currently or will assist patient after discharge: ZULLY (SPOUSE) [phone] * Verbal permission to speak to the caregivers and representatives has been obtained from the patient. N/A * Community resources currently utilized None * Additional services required to return to the preadmission environment? Yes * Can the patient safely return to the preadmission environment? Yes * Has this patient been hospitalized within the prior 30 days at any hospital? No Coverage Notice Reviewer: [id number] Lance Fry Notice Issued Date-Time: 02/16/2020 9:50 Notice Type: IM Discharge Notice Notice Delivered To: Patient Relationship to Patient: Wireless Watcher Name: Delivery Method: HAND - Hand Delivered Katie Days: Prior Verbal Notification: Recipient Understood Notice: Yes Recipient Signature: Yes Med Rec Note Co-signed by Attending: Coverage Notice Comment: imm served and explained. Reviewer: [email or web address] Lance Fry Notice Issued Date-Time: 02/16/2020 9:50 Notice Type: Patient Choice Letter Notice Delivered To: Patient Relationship to Patient: Wireless Watcher Name: Delivery Method: HAND - Hand Delivered Katie Days: Prior Verbal Notification: Recipient Understood Notice: Yes Recipient Signature: Yes Med Rec Note Co-signed by Attending: Coverage Notice Comment: JORGE, for inpatient rehab Reviewer: [email or web address] Fry Notice Issued Date-Time: 02/21/2020 13:40 Notice Type: IM Discharge Notice Notice Delivered To: Family Member Relationship to Patient: Spouse Wireless Watcher Name: zully Delivery Method: HAND - Hand Delivered Katie Days: Prior Verbal Notification: Recipient Understood Notice: Yes Recipient Signature: Yes Med Rec Note Co-signed by Attending: Coverage Notice Comment: Last DP export: 02/21/20 1:00 pm Patient Name: KEILA KENT Page 13444 at [id number] All edits/amendments must be made on the electronic document DICTATION DATE: 02/22/201727 PLATFORM ENGINEER: ANABEL 02/22/201727 RPT#: [id number] DC DATE:02/21/20 STATUS: DIS IN [facility] [address] [place] [address] END OF REPORT
== END 2020-02-21 20:00 | DRG 388 ==
LOC: D.ER 05:56 → D.MS 09:08
PROVIDERS: Family Medicine; ADMIT Family Medicine; ATTEND Family Medicine
DX: K56.51 Intestinal adhesions [bands], with partial obstruction (principal); J18.9 Pneumonia, unspecified organism; N39.0 Urinary tract infection, site not specified; G72.81 Critical illness myopathy; I10 Essential (primary) hypertension; R33.9 Retention of urine, unspecified; E03.9 Hypothyroidism, unspecified; K59.00 Constipation, unspecified; E86.0 Dehydration

== ENCOUNTER 2020-02-21 15:37 | Inpatient (IN) | payer MEDICARE, OTHER ==
[~2020-02-21] VITALS: Ht 167.6 cm; Wt 77.1 kg
[~2020-02-21 15:37] MED LIST changes: +LEVOFLOXACIN500 MG PO; +QUESTRAN LIG1 PACKET PO
--- NOTE | 2020-02-21 20:08 | NUR ---
RECIEVED PATIENT FROM MS TO ROOM 1119B WITH DX OF SMALL BOWEL OBSTRUCTION FOR PHYSICAL THERAPY AND SERVICES OF DR CROEW. AWAKE AND ALERT. RESPIRATIONS UNLABORED. NO ACUTE DISTRESS NOTED. ORIENTED TO USE OF CALL LIGHT AND SAFETY MEASURES.
[2020-02-21 21:28] VITALS: BP 107/60; BMI 27.5
[2020-02-21 21:42] VITALS: BP 107/60
--- NOTE | 2020-02-21 22:15 | NUR ---
RESTING IN BED WITH RESPIRAITONS UNLABORED. NO DISTRESS NOTED. CALL LIGHT IN REACH.
--- NOTE | 2020-02-22 00:10 | NUR ---
ASSISTED TO BATHROOM AND BACK TO BED. MODERATE ASSIST FOR TWO STAFF MEMBERS. VOIDED ONLY.
--- NOTE | 2020-02-22 02:51 | NUR ---
RESTING IN BED WITH RESPIRAITONS UNLABORED. EYES CLOSED. NO DISTRESS NOTED.
--- NOTE | 2020-02-22 04:19 | NUR ---
RESTING QUIETLY NO DISTRESS NOTED.
--- NOTE | 2020-02-22 06:00 | NUR ---
ASSISTED TO BATHROOM AND BACK TO BED. LEGS STIFF AND POOR POSTURE. ENCOURAGED TO STAND UP STRAIGHT. VOIDED WITHOUT DIFFICULTY.
[2020-02-22 07:03] LABS: BASOPHILS 0.4 % (0-2); EOSINOPHILS 1.7 % (0-7); HEMATOCRIT 33.7 % (36.0-48.0); HEMOGLOBIN 10.7 g/dL (12-16); IMMATURE GRANULOCYTES 0.6 % (0-5); MCH 30.4 pg (26.0-34.0); MCHC 31.8 g/dL (31.0-37.0); MCV 95.7 fL (80.0-100.0); MEAN PLATELET VOLUME 8.7 fL (7.4-10.4); MONOCYTES 7.7 % (2-11); NEUTROPHILS 73.6 % (40-80); PLATELET COUNT 160 10x3/uL (130-400); RBC 3.52 10x6/uL (4.00-5.40); RDW 12.8 % (11.5-14.5); WBC 5.4 10x3/uL (4.8-10.8)
[2020-02-22 07:31] LABS: ANION GAP 13.1 mmol/L (8-16); CALCIUM 8.9 mg/dL (8.5-10.1); CARBON DIOXIDE 27.6 mmol/L (21.0-32.0); CREATININE - SERUM 0.8 mg/dL (0.6-1.3); POTASSIUM - SERUM 3.7 mmol/L (3.5-5.1)
[2020-02-22 08:00] VITALS: BP 141/72
--- NOTE | 2020-02-22 08:00 | NUR ---
PT RESTING IN BED WITH EYES OPEN CALL LIGHT IN REACH WILL MONITER
--- NOTE | 2020-02-22 11:57 | NUR ---
PATIENT ADMITTED TO REHAB FROM ACUTE FLOOR. HER PCP IS DR. CARBALLO. DME AT HOME IS A CNAE AND A WALKER. DISCHARGE PLANS ARE FOR HER TO RETURN HOME WITH HER SPOUSE. WILL CONTINUE TO FOLLOW WITH PATIENT.
--- NOTE | 2020-02-22 12:00 | NUR ---
I have reviewed this patient and I concur with the Shift Assessment completed by the Licensed Practical Nurse today this shift.
[2020-02-22 14:03] VITALS: BMI 27.4
--- NOTE | 2020-02-22 17:21 | NUR ---
PT RESTING IN BED WITH EYES OPEN CALL LIGHT IN REACH WILL MONITER
--- NOTE | 2020-02-22 20:15 | NUR ---
AWAKE AND ALERT. ASSISTED TO BATHROOM AND BACK TO BED. STIFF AND HARD TO TRANSFER TAKING TWO PERSON TO TRANSFERS. NOW LYING IN BED WITH RESPIRAITONS UNLABORED. CALL LIGHT IN REACH.
[2020-02-22 21:45] VITALS: BP 112/66
--- NOTE | 2020-02-23 00:19 | NUR ---
CONTINUES TO HAVE BACK PAIN AT PAIN SCORE OF 10. NEW ODER FOR NORCO 5/325MG AND GIVEN PO. WILL MONITOR.
--- NOTE | 2020-02-23 03:37 | NUR ---
RESTING WITH EYES CLOSED. NO DISTRESS NOTED.
--- NOTE | 2020-02-23 06:19 | NUR ---
MEDICATED FOR CONTINUED BACK PAIN. SEE MAR. RESPIRAITONS UNLABORED.
[2020-02-23 07:27] LABS: BASOPHILS 1.1 % (0-2); EOSINOPHILS 2.1 % (0-7); HEMATOCRIT 30.8 % (36.0-48.0); HEMOGLOBIN 9.9 g/dL (12-16); IMMATURE GRANULOCYTES 0.6 % (0-5); LYMPHOCYTES 21.5 % (15-50); MCH 30.6 pg (26.0-34.0); MCHC 32.1 g/dL (31.0-37.0); MCV 95.1 fL (80.0-100.0); MEAN PLATELET VOLUME 9.1 fL (7.4-10.4); MONOCYTES 7.9 % (2-11); NEUTROPHILS 66.8 % (40-80); PLATELET COUNT 160 10x3/uL (130-400); RBC 3.24 10x6/uL (4.00-5.40); RDW 12.5 % (11.5-14.5); WBC 4.7 10x3/uL (4.8-10.8)
[2020-02-23 07:41] LABS: ANION GAP 12.8 mmol/L (8-16); CALCIUM 8.6 mg/dL (8.5-10.1); CARBON DIOXIDE 26.9 mmol/L (21.0-32.0); POTASSIUM - SERUM 3.7 mmol/L (3.5-5.1)
[2020-02-23 07:46] LABS: CREATININE - SERUM 1.3 mg/dL (0.6-1.3)
[2020-02-23 08:00] VITALS: BP 114/67
--- NOTE | 2020-02-23 18:50 | NUR ---
PATIENT IN BED WITH NO COMPLAINTS AT THIS TIME. FAMILY AT BEDSIDE. CALL LIGHT WITHIN REACH.
[2020-02-23 20:19] VITALS: BP 130/76
--- NOTE | 2020-02-23 20:38 | NUR ---
AWAKE AND ALERT. RESTING IN BED WITH RESPIRAITONS UNLABORED. STATES HE BACK STILL HURTS. ASSISTED TO VOID. MOVES SLOWLY. NOW IN BED WITH CALL LIGHT IN REACH.
--- NOTE | 2020-02-24 05:29 | NUR ---
QUIET HOURS, NO ACUTE CHANGES IN CONDITION THIS SHIFT. CONTINUES TO HAVE BACK PAIN. WILL TREAT WITH PRN ORDERS. ADJUSTED IN BED FOR COMFORT. CALL LIGHT IN REACH.
[2020-02-24 08:00] VITALS: BP 105/60
--- NOTE | 2020-02-24 16:08 | NUR ---
SITTING ON BEDPAN IN BED. IS UPSET THAT HER BATH WAS 2 HOURS LATER THAN EXPECTED. SAID SHE HAD TO SIT UP FOR TWO HOURS AND SHE SHOULD NOT HAVE HAD TO WAIT. EXPLAINED TO HER SITTING UP IN REHAB IS EXPECTED TO GAIN STRENGTH, THE DELAY IN BATH COULD NOT BE HELPED AND APOLOGIES WERE MADE FOR DELAY BUT SHE NEVER ASKED FOR PAIN MEDS TILL NOW OR ASKED TO BE ASSIST BACK TO BED WAITING ON BATH.....
--- NOTE | 2020-02-24 19:00 | NUR ---
ATETMPTED TO ASSIST PT INTO WHEELCHAIR TO VOID. PT UNABLE TO SIT ERECT. STATES SHE JUST WANTS A BED MARIO. STATED TO PT THAT SHE NEEDS TO GET UP TO BATHROOM. THE MORE SHE MOVES THE FASTER SHE WILL GET BETTER. PT CRYING. PROVIDED ENCOURAGEMENT. PT IS A 2 TO 3 PERSON ASSIST. BED LOW CALL LIGHT IN REACH. SIDE RAILS RAISED X2.
[2020-02-24 20:40] VITALS: BP 115/60
--- NOTE | 2020-02-24 21:00 | NUR ---
PT TOOK PM MEDS WITH ENCOURAGEMENT. PROVIDED PAIN MEDICATION PER REQUEST. BED LOW SIDE RAILS RAISED X2 NO S/S OF DISTRESS NOTED.
--- NOTE | 2020-02-25 | NUR ---
ASSISTED PT TO BATHROOM WITH 3 PERSON ASSIST. PT UNABLE TO STAND UP OR SIT ERECT.
--- NOTE | 2020-02-25 03:00 | NUR ---
PT RESTING WITH EYES CLOSED. NO S/S OF DISTRESS.
--- NOTE | 2020-02-25 06:00 | NUR ---
ANSWERED CALL LIGHT. PATIENT STATES SHE IS UNABLE TO REACH HER DRINK FROM THE BEDSIDE TABLE. STATED TO PATIENT THAT SHE NEEDS TO PROGRESS IN REHAB SO SHE CAN GET BETTER TO GO HOME. PATIENT REACHED FOR HER DRINK CUP WITH ENCOURAGEMENT.
[2020-02-25 08:00] VITALS: BP 124/75
--- NOTE | 2020-02-25 13:29 | NUR ---
ELISEO ASST X3 STAFF TO TRANSFER FROM TO BED. SHE STAYED BENT OVER, NOT APPLYING ANY WT TO LEGS AND NOT BRING HER FEET UNDER HER DURING TRANSFER. WAS INCONT OF URINE. C/O PAIN TO LEFT HIP. SHE C/O NOT BEING ABLE TO DO MUCH FOR HERSELF INCLUDING OPENING FOOD CONTAINERS, REACHING BED CONTROLS, ROLLING FROM SIDE/SIDE, WIPING SELF OR TAKING MEDS WHOLE. CALL LIGHT IN REACH, BED IN LOWEST POSITION, SIDE RAILS UP X2.
--- NOTE | 2020-02-25 19:54 | NUR ---
PT TOILETED, NO OTHER NEEDS NOTED, RASH TO GROIN/BUTT FOLDS BUTT PASTE USED FALL PRECAUTIONS IN PLACE, FLUIDS/CALL LIGHT WITHIN REACH
--- NOTE | 2020-02-26 02:39 | NUR ---
PT ASLEEP AROUSES EASILY TO VOICE, NO NEEDS NOTED, FALL PRECAUTIONS IN PLACE, ALLOWED FLUIDS/CALL LIGHT WITHIN REACH
--- NOTE | 2020-02-26 04:29 | NUR ---
PT ASLEEP AROUSES EASILY TO VOICE, NO NEEDS NOTED, FALL PRECAUTIONS IN PLACE, ALLOWED FLUIDS/CALL LIGHT WITHIN REACH
[2020-02-26 06:18] VITALS: BP 136/66
[2020-02-26 07:47] LABS: ANION GAP 12.5 mmol/L (8-16); CARBON DIOXIDE 27.3 mmol/L (21.0-32.0); CREATININE - SERUM 0.9 mg/dL (0.6-1.3); POTASSIUM - SERUM 3.8 mmol/L (3.5-5.1)
[2020-02-26 08:00] VITALS: BP 104/58
[2020-02-26 09:06] LABS: BASOPHILS 0.2 % (0-2); EOSINOPHILS 1.7 % (0-7); HEMATOCRIT 30.5 % (36.0-48.0); HEMOGLOBIN 9.8 g/dL (12-16); IMMATURE GRANULOCYTES 0.4 % (0-5); LYMPHOCYTES 13.8 % (15-50); MCH 30.5 pg (26.0-34.0); MCHC 32.1 g/dL (31.0-37.0); MEAN PLATELET VOLUME 8.6 fL (7.4-10.4); MONOCYTES 12.3 % (2-11); NEUTROPHILS 71.6 % (40-80); PLATELET COUNT 179 10x3/uL (130-400); RBC 3.21 10x6/uL (4.00-5.40); RDW 12.4 % (11.5-14.5); WBC 4.8 10x3/uL (4.8-10.8)
--- NOTE | 2020-02-26 14:04 | NUR ---
MAX ASST X 2-3 STAFF. SHE KEEPS LEANING OVER AT 90 DEGREE ANGLE AND WILL NOT PUT WT ON LEGS. SHE C/O HER FOOD IS NOT DELIVERED FAST ENOUGH, STAFF IS NOT QUICK ENOUGH, LENGTH OF TIME TO BE TRANSFERED IS TOO LONG AND SHE NEEDS MORE PAIN MEDS. VISITS OFTEN. CALL LIGHT IN REACH. BED IN LOWEST POSITION, SIDE RAILS UP X2
--- NOTE | 2020-02-26 14:25 | NUR ---
Nutrition Follow-up: Diet: Regular PO intake: 75% x 3 meals Last recorded BM: 02/20/20?. WT: 170# (02/22/20) Meds noted: lasix, micro-K, HCTZ. Labs noted: BUN 25(H), Glu 136(H) Recommend increase in bowel regimen if last BM truly x 7 days ago. Recommend continue current diet. RD following.
--- NOTE | 2020-02-26 20:48 | NUR ---
PT IN BED TOILETED,EMPLOYEES AT RISK FOR INJURY WITH THIS PT, STIFFENS UP, ALWAYS SAYS I CAN'T DO IT, WON'T HELP BUT SAYS I'M TRYING WHEN SHE'S REALLY NOT MAKING ANY EFFORT, DID BETTER LAST NIGHT THAN ALLEN, STATES THERAPY WORKED HER TOO HARD SHE CAN'T DO IT OR HELP IT WHEN TRYING TO COAX PT INTO DOING ANYTHING THAT REQUIRES HER ASSISTANCE, MALE NURSE HAD TO HELP TOILET AND PLACE BACK INTO BED, FALL PRECAUTIONS IN PLACE FLUIDS/CALL LIGHT WITHIN REACH
[2020-02-26 21:40] VITALS: BP 103/57
--- NOTE | 2020-02-27 01:20 | NUR ---
PT ASLEEP AWAKENS EASILY TO VOICE, NO NEEDS NOTED, FALL/SAFETY PRECAUTIONS IN PLACE, FLUIDS/CALL LIGHT WITHIN REACH
[2020-02-27 08:00] VITALS: BP 159/96
--- NOTE | 2020-02-27 08:00 | NUR ---
SHIFT ASSMT COMPLETED.INCONTINENT OF URINE.CHANGED AND BREAKFAST SET-UP PROVIDED.
--- NOTE | 2020-02-27 16:00 | NUR ---
IN THERAPY.[place] WELL.
[2020-02-27 22:02] VITALS: BP 151/61
--- NOTE | 2020-02-28 02:54 | NUR ---
PT ASLEEP AROUSES EASILY TO VOICE, NO IMMEDIATE NEEDS NOTED,FALL PRECAUTIONS IN PLACE, FLUIDS/CALL LIGHT WITHIN REACH
[2020-02-28 06:27] LABS: BASOPHILS 0.5 % (0-2); EOSINOPHILS 1.8 % (0-7); HEMOGLOBIN 9.9 g/dL (12-16); IMMATURE GRANULOCYTES 0.5 % (0-5); LYMPHOCYTES 12.8 % (15-50); MCH 30.8 pg (26.0-34.0); MCHC 31.9 g/dL (31.0-37.0); MCV 96.6 fL (80.0-100.0); MEAN PLATELET VOLUME 8.5 fL (7.4-10.4); MONOCYTES 13.4 % (2-11); PLATELET COUNT 167 10x3/uL (130-400); RBC 3.21 10x6/uL (4.00-5.40); RDW 12.6 % (11.5-14.5); WBC 5.5 10x3/uL (4.8-10.8)
[2020-02-28 06:52] LABS: ANION GAP 10.4 mmol/L (8-16); CALCIUM 9.3 mg/dL (8.5-10.1); CARBON DIOXIDE 28.7 mmol/L (21.0-32.0); POTASSIUM - SERUM 4.1 mmol/L (3.5-5.1)
[2020-02-28 08:00] VITALS: BP 134/64
--- NOTE | 2020-02-28 08:00 | NUR ---
SHIFT ASSMT COMPLETED.BREAKFAST TRAY GIVEN.CL IN REACH.UP OOB TO BATHROOM AND UP IN WC.CONTINENT THIS AM OF URINE.
--- NOTE | 2020-02-28 12:00 | NUR ---
EATING LUNCH.DENIES NEEDS.
--- NOTE | 2020-02-28 15:03 | NUR ---
CARE TEAM MEETING: PATIENT SPOUSE ATTENDED THE MEETING. HIS QUESTIONS AND CONCERNS WERE ADDRESSED. TENATIVE DISCHARGE DATE IS 03/08/20. WILL CONTINUE TO FOLLOW WITH PATIENT.
--- NOTE | 2020-02-28 16:00 | NUR ---
WILL CONTINUE TO MONITOR.[place] THERAPY.CL IN REACH.
[2020-02-28 21:59] VITALS: BP 121/70
--- NOTE | 2020-02-28 23:46 | NUR ---
PT ASLEEP AWAKENS EASILY TO VOICE, NO NEEDS NOTED, FALL/SAFETY PRECAUTIONS IN PLACE, FLUIDS/CALL LIGHT WITHIN REACH
[2020-02-29 07:38] VITALS: BP 103/56
--- NOTE | 2020-02-29 19:50 | NUR ---
AWAKE AND ALERT. CONTINUES TO C/O BACK PAIN. REPOSITIONED FOR COMFORT. WILL CONTINUE TO [id number]
[2020-02-29 21:48] VITALS: BP 144/79
--- NOTE | 2020-03-01 00:56 | NUR ---
SLEEPING WITH RESPIRATIONS UNLABORED. NO DISTRESS NOTED.
--- NOTE | 2020-03-01 05:27 | NUR ---
QUIET HOURS. NO ACUTE CHANGES IN CONDITION THIS SHIFT. RESTING IN BED WITH NO DISTRESS NOTED.
[2020-03-01 06:40] LABS: BASOPHILS 0.2 % (0-2); EOSINOPHILS 0.9 % (0-7); HEMATOCRIT 29.5 % (36.0-48.0); HEMOGLOBIN 9.5 g/dL (12-16); IMMATURE GRANULOCYTES 0.3 % (0-5); LYMPHOCYTES 15.1 % (15-50); MCH 30.1 pg (26.0-34.0); MCHC 32.2 g/dL (31.0-37.0); MCV 93.4 fL (80.0-100.0); MEAN PLATELET VOLUME 8.4 fL (7.4-10.4); MONOCYTES 9.5 % (2-11); PLATELET COUNT 159 10x3/uL (130-400); RBC 3.16 10x6/uL (4.00-5.40); RDW 12.4 % (11.5-14.5); WBC 6.4 10x3/uL (4.8-10.8)
[2020-03-01 06:48] LABS: ANION GAP 13.2 mmol/L (8-16); CALCIUM 9.5 mg/dL (8.5-10.1); CARBON DIOXIDE 29.1 mmol/L (21.0-32.0); CREATININE - SERUM 0.9 mg/dL (0.6-1.3); POTASSIUM - SERUM 3.3 mmol/L (3.5-5.1)
[2020-03-01 08:00] VITALS: BP 105/50
--- NOTE | 2020-03-01 12:43 | NUR ---
Nutrition Follow-up: Diet: Regular PO intake: ~67% average x last 6 meals recorded (02/27/20-02/28/20), ~25% of breakfast meal. She states that her appetite is "not great." She complains that she has not had a BM in "several weeks." Last BM: 02/20/20 (per flowsheet), 02/25/20 (per RN). WT: 170# (02/22/20) Meds noted: lasix, micro-K, HCTZ. Labs noted: K 3.3(L), BUN 23(H), Glu 132(H) Recommend bowel regimen for BM regularity. Took food preferences/request from patient. Encouraged her to continue to order Boost PRN on her menu. RD following.
[2020-03-01 19:42] VITALS: BP 132/62
--- NOTE | 2020-03-01 20:05 | NUR ---
PATIENT RECEIVED SITTING UP IN BED. ASSESSMENT & VITAL SIGNS DONE. MENU FILLED OUT. FOOD TRAY TAKEN AWAY. BED LOW. ALARM ON. CALL LIGHT WITHIN REACH. WILL CONTINUE TO MONITOR.
--- NOTE | 2020-03-02 01:34 | NUR ---
I have reviewed this patient and I concur with the Shift Assessment completed by the Licensed Practical Nurse today this shift.
--- NOTE | 2020-03-02 02:20 | NUR ---
PATIENT EYES CLOSED. RESPIRATIONS 18 & EVEN. BED LOW. ALARM ON. CALL LIGHT WITHIN REACH. WILL CONTINUE TO MONITOR.
[2020-03-02 08:00] VITALS: BP 127/69
--- NOTE | 2020-03-02 08:00 | NUR ---
SHIFT ASSMT COMPLETED.BREAKFAST GIVEN.CL IN REACH.
--- NOTE | 2020-03-02 12:00 | NUR ---
SITTING UP AT BEDSIDE IN WC X2 PERSON ASSIST WITH SLIDEBOARD. VISITING.CALLED DR. AVILA SUPERVISOR [employer] FOR CONSULT LEFT HIP AND LOW BACK ARTHRITIS.
--- NOTE | 2020-03-02 16:00 | NUR ---
RETURNED TO BED X3 ASSIST WITH SLIDE BOARD.BEDPAN GIVEN.VOIDED AND CLEANED.
[2020-03-02 20:10] VITALS: BP 99/57
--- NOTE | 2020-03-02 20:15 | NUR ---
PATIENT RECEIVED SITTING UP IN BED. ASSESSMENT & VITAL SIGNS DONE. BED LOW. CALL LIGHT WITHIN REACH. WILL CONTINUE TO MONITOR.
--- NOTE | 2020-03-02 20:45 | NUR ---
PATIENT USED CALL LIGHT FOR ASSIST. PATIENT REQUEST TO USE BED MARIO. PATIENT TURNED SELF TO THE LEFT. MINIMAL PAIN. BED MARIO PLACED. PATIENT TURNED SELF ON BACK. CALL LIGHT WITHIN REACH. WILL CONTINUE TO MONITOR.
--- NOTE | 2020-03-02 20:55 | NUR ---
PATIENT USED CALL LIGHT FOR ASSIST. PATIENT TURNED SELF OFF BED MARIO. BED MARIO REMOVED. NOTHING IN BED MARIO. PATIENT TURNED SELF ON HER BACK. CALL LIGHT WITHIN REACH. WILL CONTINUE TO MONITOR.
--- NOTE | 2020-03-03 02:37 | NUR ---
I have reviewed this patient and I concur with the Shift Assessment completed by the Licensed Practical Nurse today this shift.
--- NOTE | 2020-03-03 03:44 | NUR ---
PATIENT EYES CLOSED. RESPIRATIONS 18 & EVEN. BED LOW. CALL LIGHT WITHIN REACH. WILL CONTINUE TO MONITOR.
[2020-03-03 08:00] VITALS: BP 123/73
--- NOTE | 2020-03-03 08:00 | NUR ---
SHIFT ASSMT COMPLETED.POSITIONED UP IN BED FOR BREAKFAST.MEAL SET-UP PROVIDED.
--- NOTE | 2020-03-03 12:00 | NUR ---
EATING LUNCH.CL IN REACH.
--- NOTE | 2020-03-03 16:00 | NUR ---
POS FOR COMFORT. AT BEDSIDE.
[2020-03-03 20:00] VITALS: BP 125/63
--- NOTE | 2020-03-03 20:20 | NUR ---
PATIENT RECEIVED LAYING IN BED. AT BEDSIDE. ASSESSMENT & VITAL SIGNS DONE. X-RAY TECH HERE TO TRANSFER PATIENT [facility]. 3 NURSES HELPED TO TRANSFER PATIENT [facility]. PATIENT TAKEN TO RADIOLOGY FOR MRI OF BACK.
--- NOTE | 2020-03-04 01:34 | NUR ---
I have reviewed this patient and I concur with the Shift Assessment completed by the Licensed Practical Nurse today this shift.
--- NOTE | 2020-03-04 02:22 | NUR ---
PATIENT AWAKE USED CALL LIGHT FOR ASSIST. PATIENT HAD LARGE URINE INCONTINENCE ON PAD. PATIENT CLEANED. BUTT PASTE APPLIED TO PERIAREA & BUTTOCKS. PATIENT GIVEN PAIN MEDICATION FOR 8/10 PAIN LEVEL. BED LOW. CALL LIGHT WITHIN REACH. WILL CONTINUE TO MONITOR.
--- NOTE | 2020-03-04 02:27 | NUR ---
PATIENT MINIMAL ASSIST INTO WHEELCHAIR. INDEPENDENT FROM WHEELCHAIR TO COMMODE. VOID ONLY. PATIENT TRANSFERED INDEPENDENTLY INTO WHEELCHAIR & BED. BED LOW. ALARM ON.CALL LIGHT WITHIN REACH. WILL CONTINUE TO MONITOR.
[2020-03-04 07:08] LABS: ANION GAP 12.1 mmol/L (8-16); CALCIUM 9.4 mg/dL (8.5-10.1); CARBON DIOXIDE 28.9 mmol/L (21.0-32.0)
--- NOTE | 2020-03-04 07:17 | NUR ---
POSITIONED ON BACK WITH EYES CLOSED AND RESP EVEN AND UNLABORED ON RA. NO APPARENT NEEDS AT PRESENT TIME. SIDERAILS UP X 2, CALL LIGHT AND FLUIDS WITHIN REACH AND BED IN LOW LOCKED POSITION.
[2020-03-04 07:34] LABS: HEMATOCRIT 27.9 % (36.0-48.0); HEMOGLOBIN 9.1 g/dL (12-16); LYMPHOCYTES 10.9 % (15-50); MCH 30.4 pg (26.0-34.0); MCHC 32.6 g/dL (31.0-37.0); MCV 93.3 fL (80.0-100.0); MEAN PLATELET VOLUME 8.5 fL (7.4-10.4); NEUTROPHILS 79.2 % (40-80); RBC 2.99 10x6/uL (4.00-5.40); RDW 11.6 % (11.5-14.5); WBC 6.5 10x3/uL (4.8-10.8)
[2020-03-04 07:39] LABS: PLATELET COUNT 239 10x3/uL (130-400)
[2020-03-04 08:03] VITALS: BP 132/71
--- NOTE | 2020-03-04 13:49 | NUR ---
I have reviewed this patient and I concur with the Shift Assessment completed by the Licensed Practical Nurse today this shift.
--- NOTE | 2020-03-04 20:00 | NUR ---
PT IS RESTING IN BED WITH EYES OPEN. ALERT AND ORIENTED X 3. DENIES ACUTE PAIN OR DISCOMFORT AT THIS TIME. NO NEEDS VOICED. SR'S ARE UP X 2 IN BED. CALL LIGHT AND BEDSIDE TABLE ARE WITHIN EASY REACH.
[2020-03-04 20:26] VITALS: BP 144/74
[2020-03-04 21:50] VITALS: Ht 167.6 cm; Wt 77.1 kg
--- NOTE | 2020-03-04 22:06 | NUR ---
PT RESTING IN BED WITH EYES OPEN. NO NEEDS VOICED.
--- NOTE | 2020-03-05 01:33 | NUR ---
I have reviewed this patient and I concur with the Shift Assessment completed by the Licensed Practical Nurse today this shift.
--- NOTE | 2020-03-05 04:49 | NUR ---
PT RESTING IN BED WITH EYES CLOSED. NO DISTRESS NOTED.
--- NOTE | 2020-03-05 07:30 | NUR ---
POSITIONED ON BACK WITH EYES CLOSED. RESP EVEN AND UNLABORED WITH NO APPARENT NEEDS AT THIS TIME. SIDERAILS UP X 2, CALL LIGHT AND FLUIDS IN REACH, BED IN LOW LOCKED POSITION.
[2020-03-05 07:55] VITALS: BP 149/76
--- NOTE | 2020-03-05 12:38 | NUR ---
I have reviewed this patient and I concur with the Shift Assessment completed by the Licensed Practical Nurse today this shift.
--- NOTE | 2020-03-05 16:07 | NUR ---
Nutrition Follow-up: Diet: Regular PO Intake: ~56% average x last 9 meals. She was in therapy when RD rounded during rehab lunch hour. Previously she was ordering Boost from menu. Last BM: 03/03/20. WT: 170# (02/22/20), no new weight Meds noted: methylprednisone, lasix, micro-K, HCTZ Labs noted: BUN 35(H), Glu 117(H) Recommend getting new weight. Recommend continue current diet. Oral nutrition supplements ordered on menu. Encourage PO intake. RD following.
[2020-03-05 19:00] VITALS: BP 118/60
--- NOTE | 2020-03-05 19:50 | NUR ---
PT IN BED, GLAD TO SEE ME, PLEASANT, NO NEEDS NOTED, FALL PRECAUTIONS IN PLACE, FLUIDS/CALL LIGHT WITHIN REACH
--- NOTE | 2020-03-06 00:49 | NUR ---
HELPED PT TO BED, IN ROOM, PLEASANT, INTRODUCED SELF, NO NEEDS NOTED, FALL PRECAUTIONS IN PLACE, FLUIDS/CALL LIGHT WITHIN REACH
[2020-03-06 06:00] LABS: ANION GAP 11.3 mmol/L (8-16); CALCIUM 9.6 mg/dL (8.5-10.1); CARBON DIOXIDE 29.8 mmol/L (21.0-32.0); CREATININE - SERUM 0.8 mg/dL (0.6-1.3); POTASSIUM - SERUM 4.1 mmol/L (3.5-5.1)
[2020-03-06 07:11] LABS: HEMATOCRIT 31.4 % (36.0-48.0); HEMOGLOBIN 10.1 g/dL (12-16); LYMPHOCYTES 10.6 % (15-50); MCH 30.2 pg (26.0-34.0); MCHC 32.2 g/dL (31.0-37.0); NEUTROPHILS 80.8 % (40-80); PLATELET COUNT 240 10x3/uL (130-400); RBC 3.34 10x6/uL (4.00-5.40); RDW 11.6 % (11.5-14.5); WBC 6.3 10x3/uL (4.8-10.8)
--- NOTE | 2020-03-06 08:00 | NUR ---
SHIFT ASSMT COMPLETED.CL IN REACH.
--- NOTE | 2020-03-06 15:08 | NUR ---
CARE TEAM MEETING: SPOUSE ATTENDED THE MEETING. HIS QUESTIONS AND CONCERNS WERE ADDRESSED. A REFERRAL HAS BEEN FAXED TO [facility] PER PATIENT REQUEST. TENATIVE DSICHARGE DATE IS 03/08/20. WILL CONTINUE TO FOLLOW WITH PATIENT.
--- NOTE | 2020-03-06 15:30 | NUR ---
COVID TEST OBTAINED FOR PLACEMENT.
--- NOTE | 2020-03-06 19:20 | NUR ---
PT IN BED READING NEWS PAPER, NO NEEDS NOTED, FALL PRECAUTIONS IN PLACE, FLUIDS/CALL LIGHT WITHIN REACH,
[2020-03-06 21:29] VITALS: BP 114/67
--- NOTE | 2020-03-07 03:14 | NUR ---
PT ASLEEP AROUSES EASILY TO VOICE, NO NEEDS NOTED, FALL PRECAUTIONS IN PLACE, FLUIDS/CALL LIGHT WITHIN REACH
--- NOTE | 2020-03-07 07:53 | RHP ---
PATIENT: KEILA KENT MEDICAL RECORD: [id number] ACCOUNT: [id number] [facility] Julien1119 : 37 ADMISSION DATE: 02/21/20 REHABILITATION HISTORY AND PHYSICAL EXAMINATION POST ADMISSION PHYSICIAN EXAMINATION ADMITTING DIAGNOSIS: Critical illness myopathy. HISTORY OF PRESENT ILLNESS: The patient is an 85-year-old female patient who presented to the Emergency Room via ambulance with complaints of abdominal pain. She described the pain as constant, aching sensation that had worsened. She has had some nausea and vomiting with it as well. She had an appendectomy and hysterectomy as well as bilateral oophorectomy in the past. The patient was admitted to medical floor for further evaluation and monitor. Her CT showed framisqf-pk-zkxy grade gxx-qy-gcaklr small-bowel obstruction with a transition point in the midline of the pelvis. The patient had an NG tube with noted bilious output. She was followed by general surgery during her stay. She has had to have nutritional support via IV due to being n.p.o. She underwent a small bowel follow-through and has been having some diarrhea since then. They continue to do medication changes. She was found to have a UTI and has been receiving IV therapy. She has had a prolonged hospital stay. She has been seeing physical and occupational therapy throughout her stay. She needs to be monitored closely secondary to her recent small-bowel obstruction. She is also on IV antibiotics for UTI. The patient has been having to have medications adjusted for hypertension, pain control. She is on electrolyte protocol. She has got balance deficits, decreased safety awareness, impaired mobility, decreased range of motion, gait disturbance and medical complexity. She has risk for falls. 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 She needs cues for use of equipment, low endurance, unsteady gait and balance, fatigues easily, inability to care for herself and self-care deficits. These are all barriers to her discharge home. She lives at home with her spouse and was independent with ADLs and mobility prior to this, using a Rollator. She is currently set up for max assist for ADLs and mod assist for mobility. She would like to be able to return home at her prior level of functioning or better. COMORBIDITIES: Include weakness, critical illness myopathy, small bowel obstruction, hypertension, hypothyroidism, diarrhea, weakness, difficulty swallowing and UTI. PAST MEDICAL HISTORY: Significant for thyroid problems. She has got a history of hypertension. PAST SURGICAL HISTORY: Includes knee surgery, cataracts, appendectomy, hysterectomy and lumpectomy. ALLERGIES: KEFLEX, IBUPROFEN, MARCAINE, SULFA, FLUNISOLIDE, NITROFURANTOIN AND SULFA DRUGS. CURRENT MEDICATIONS: Include metoprolol 50 mg daily, she is on Levaquin for 7 days, furosemide 20 mg daily, she is on Flonase nasal spray daily, B12 2500 mcg daily, calcium with D 500 mg daily, Protonix 40 mg daily, Synthroid 25 mcg daily, Tylenol 650 every 4 hours p.r.n., Questran 1 packet b.i.d., hydrochlorothiazide 6.25 mg b.i.d., Micardis 40 mg b.i.d., potassium chloride 10 mEq t.i.d., Neurontin 300 mg t.i.d. and Colace 100 mg b.i.d. HISTORY AND PHYSICAL [id number] KEILA KENT HABITS: No alcohol or tobacco use. FAMILY HISTORY: Noncontributory. SOCIAL HISTORY: The patient hopes to return back home and get back to her prior level of functioning. REVIEW OF SYSTEMS: GENERAL: Does complain of weakness and fatigue. HEENT: Denies cold, cough, or congestion. CARDIOVASCULAR: Denies any chest pain. PHYSICAL EXAMINATION: VITAL SIGNS: Stable, afebrile. GENERAL: A well-developed elderly female, in no acute distress upon exam. HEENT: Normocephalic and atraumatic. Mucosa moist. NECK: Supple. No lymphadenopathy. LUNGS: Clear in upper matamoros. CARDIOVASCULAR: Regular rate and rhythm. She does have a holosystolic murmur. ABDOMEN: Soft. She does have some diffuse tenderness, but no rebound, no guarding. EXTREMITIES: Does have a noted eydln-ilf-vyty amputation. NEUROLOGIC: She is mainly intact. LABORATORY DATA: White count is 5.4, H&H of 10.7 and 33.7, and platelet count is 160. Her sodium is 139, potassium 3.7, BUN and creatinine of 23 and 0.8 and blood sugar is noted to be 101. ASSESSMENT: This is an 85-year-old female patient admitted to rehab with a working diagnosis of critical illness myopathy. The patient has potential to make improvement. We instituted the following multiple disciplinary therapies including, but not limited to physical, occupational, respiratory, speech, nutritional services, prosthetics and orthotics. Given her complex medical condition and risks for more complications, rehabilitation services cannot be provided at a low level of care such as skilled nurse facility. PLAN: [facility] to include the following disciplines; A. Physical therapy to improve gait, all transfer skills and bed mobility to a modified independent level. B. Occupational therapy to improve activities of daily living. C. Case management to help with discharge planning and placement options. D. Nutrition to assist with nutritional needs. E. Rehabilitation nursing to assist in monitoring the patient's underlying medical condition and to assist with any type of bowel or bladder management. 2. The patient's current medication and medical care will be continued. 3. The patient will be placed on standard fall precautions. 4. The patient's estimated length of stay is approximately 7-10 days. 5. We will discuss this patient during care team staff meeting this week. We will continue on home medications where appropriate, watch for any further signs of bowel problems and x-ray this if necessary and I will see again in the a.m. TRANSINT:[id number] Voice Confirmation ID: [id number] DOCUMENT ID: [id number] HISTORY AND PHYSICAL [id number] KEILA KENT notes whether there has been none or any medical/functional change since admission: - No change since preadmission screen. SAMUEL attests patient continues to be appropriate for IRF: - Continues to be appropriate. MUKUND CROWE MD at 0753 CC: [id number] DICTATION DATE: 02/22/20 0843 PHARMACY INNOVATION ASSISTANT: 02/22/20 0937 ADM IN [facility] [address] [id number]
--- NOTE | 2020-03-07 08:00 | NUR ---
SHIFT ASSMT COMPLETED.
[2020-03-07 19:00] VITALS: BP 143/63
--- NOTE | 2020-03-07 19:45 | NUR ---
RECEIVED PT LYING IN BED EYES CLOSED RESTING. HOB ELEVATED. RR EVEN AND UNLABORED. EASILY AROUSED WITH VERBAL STIMULI. DENIES ANY NEEDS OR PAIN. CALL LIGHT AND WATER WITHIN REACH. FALL PRECAUTIONS IN PLACE. CPOC
--- NOTE | 2020-03-08 01:53 | NUR ---
ATTEMPTED TO CALL REPORT TO [facility] THE LINE WAS BUSY, WILL ATTEMPT AGAIN IN 15 TO 20 MINUTES
--- NOTE | 2020-03-08 02:16 | NUR ---
PT LYING IN BED SUPINE EYES CLOSED RESTING QUIETLY. HOB ELEVATED. RR EVEN AND UNLABORED. CALL LIGHT WITHIN REACH. FALL PRECAUTIONS IN PLACE. CPOC
--- NOTE | 2020-03-08 04:05 | NUR ---
INCONTINENCE AND PERICARE PROVIDED. MED URNINE INCONTINENCE. BUTTPASTE APPLIED TO PERIAREA AND BUTTOCKS. REQUESTS PAIN MEDICATION FOR LOWER BACK AND HIP PAIN 6/10 SHARP RADIATING. WILL ADMININSTER NORCO 5/325MG PER ORDER. NO OTHER NEEDS VOICED. CALL LIGHT WITHIN REACH. FALL PRECAUTIONS IN PLACE. CPOC
--- NOTE | 2020-03-08 07:34 | NUR ---
PT ASLEEP AROUSES EASILY TO VOICE, NO NEEDS NOTED, FALL PRECAUTIONS IN PLACE, FLUIDS/CALL LIGHT WITHIN REACH
[2020-03-08] MEDS ORDERED: HYDROCODON-ACE1 EAC7 PO (09:02)
--- NOTE | 2020-03-08 11:15 | NUR ---
PATIENT DISCHARGED TO THE [facility] TODAY VIA FACILITY VAN. NO HOME HEALTH OR DME NEEDED AT THIS TIME. AN APPOINTMENT WITH DR. CARBALLO WILL BE MADE AT TIME OF DISCHARGE FROM FACILITY. JORGE SIGNED, IMM SERVED AND EXPLAINED ONE GIVEN TO PATIENT AND ONE FILED IN CHART. NO COMPARE DATA REVIEWED PATIENT RESIDES IN THE [facility]. DISCHARGE INSTRUCTIONS FAXED TO PCP, SNF AND REVIEWED WITH PATIENT PER PRIMARY NURSE.
[2020-03-08 13:15] VITALS: BP 146/79
--- NOTE | 2020-03-08 13:26 | NUR ---
PT DISCHARGED FROM FACILITY TO [facility] AT 1315 WITH AND [facility] STAFF VAN, VIA WC, INSTRUCTIONS AND MEDICATIONS REVIEWED AND UNDERSTOOD, ALL BELONGINGS LEFT WITHI PT
--- NOTE | 2020-03-08 14:12 | NUR ---
ATTEMPTED TO CALL REPORT TO [facility] THE LINE WAS BUSY, WILL ATTEMPT AGAIN IN 15 TO 20 MINUTES, THIS IS MY 3RD ATTEMPT
--- NOTE | 2020-03-08 14:39 | NUR ---
FOURTH AND FINAL ATTEMPT TO CALL [facility] TO GIVE REPORT WITHOUT SUCCESS, LINE BUSY
== END 2020-03-08 13:15 | DRG 92 ==
LOC: D.REHAB 15:37
PROVIDERS: ADMIT Emergency Medicine; ATTEND Emergency Medicine
DX: G72.81 Critical illness myopathy (principal); K56.609 Unspecified intestinal obstruction, unspecified as to partial versus complete obstruction; N39.0 Urinary tract infection, site not specified; R53.1 Weakness; I10 Essential (primary) hypertension; E03.9 Hypothyroidism, unspecified; R19.7 Diarrhea, unspecified; R13.10 Dysphagia, unspecified; R26.9 Unspecified abnormalities of gait and mobility; R33.9 Retention of urine, unspecified

== ENCOUNTER 2020-06-03 13:01 | Inpatient (IN) | payer MEDICARE, OTHER ==
[~2020-06-03] VITALS: Ht 167.6 cm; Wt 63.5 kg
[~2020-06-03 13:01] MED LIST changes: +HYDROCODON-ACE1 EAC7 PO
[2020-06-03 13:58] LABS: BASOPHILS 0.2 % (0-2); EOSINOPHILS 1.7 % (0-7); HEMATOCRIT 32.4 % (36.0-48.0); HEMOGLOBIN 10.3 g/dL (12-16); IMMATURE GRANULOCYTES 0.4 % (0-5); LYMPHOCYTES 14.6 % (15-50); MCH 27.8 pg (26.0-34.0); MCHC 31.8 g/dL (31.0-37.0); MCV 87.6 fL (80.0-100.0); MEAN PLATELET VOLUME 8.1 fL (7.4-10.4); NEUTROPHILS 76.1 % (40-80); RDW 14.1 % (11.5-14.5); WBC 5.3 10x3/uL (4.8-10.8)
[2020-06-03 14:13] LABS: CALC OSMOLALITY 275 mosm/kg (275-300); CALCIUM 9.1 mg/dL (8.5-10.1); CARBON DIOXIDE 28.4 mmol/L (21.0-32.0); CHLORIDE - SERUM 101 mmol/L (98-107); CREATININE - SERUM 0.7 mg/dL (0.6-1.3); GLUCOSE 107 mg/dL (74-106); POTASSIUM - SERUM 3.3 mmol/L (3.5-5.1); SODIUM 138 mmol/L (136-145); UREA NITROGEN 13 mg/dL (7-18); eGFR NON AFRICAN AMERICAN 84 mL/min (90-120)
[2020-06-03 14:22] LABS: ALBUMIN 3.1 g/dL (3.4-5.0); ALKALINE PHOSPHATASE 211 U/L (30-120); ALT (SGPT) 9 U/L (10-68); AMYLASE - SERUM 30 U/L (25-115); LIPASE 54 U/L (73-393); PLATELET COUNT 171 10x3/uL (130-400); PROTEIN - SERUM 7.6 g/dL (6.4-8.2); TROPONIN-I < 0.017 ng/mL (0.000-0.060)
--- NOTE | 2020-06-03 14:26 | NUR ---
STRAIGHT CATH PERFORMED TO OBTAIN URINE SAMPLE FROM THE PT.
[2020-06-03 15:01] LABS: BILIRUBIN NEGATIVE (NEGATIVE); KETONE NEGATIVE (NEGATIVE); NITRITE POSITIVE (NEGATIVE); UROBILINOGEN NORMAL mg/dL (< 2)
[2020-06-03 15:03] LABS: BACTERIA MANY HPF (NONE SEEN); WHITE CELLS - URINE 0-5 HPF (0-4)
--- NOTE | 2020-06-03 19:13 | NUR ---
PT TO MRI VIA WHEELCHAIR AT THIS TIME.
[2020-06-04 00:17] VITALS: BP 158/90; BMI 22.6
[2020-06-04] MEDS ORDERED: XALATAN 0.0052.5 ML EACH EYE (00:26)
[2020-06-04] MEDS ORDERED: COZAAR100 MG PO (00:26)
[2020-06-04] MEDS ORDERED: NORVASC5 MG PO (00:27)
--- NOTE | 2020-06-04 00:47 | NUR ---
PT ARRIVED ON UNIT AT 2340 VIA STRETCHER, ESCORTED BY ER NURSE. TRANSFERRED TO BED AND POSITIONED FOR COMFORT. IV FLUIDS AND ABX CONTINUED FROM ER. PUREWICK EXTERNAL CATHETER PLACED FOR INCONTINENCE. YELLOW GOWN, GRIPPER SOCKS AND BED ALARM PLACED FOR SAFETY. SIDE RAILS UP X2 FOR SAFETY. CALL LIGHT WITHIN REACH.
[2020-06-04 04:00] VITALS: BP 153/72
[2020-06-04 06:18] LABS: APTT 39.3 SECONDS (22.8-39.4); INR 1.19 (0.85-1.17)
[2020-06-04 08:00] VITALS: BP 168/73
--- NOTE | 2020-06-04 09:00 | NUR ---
ASSESSMENT PER FLOW SHEET. PATIENT IS WITHOUT DISTRESS.CALL LIGHT IN REACH. BARBER MAT ON AND WORKING
[2020-06-04 09:43] LABS: ALBUMIN 2.7 g/dL (3.4-5.0); ALKALINE PHOSPHATASE 173 U/L (30-120); ALT (SGPT) 7 U/L (10-68); BILIRUBIN - TOTAL 0.25 mg/dL (0.2-1.3); CALC OSMOLALITY 272 mosm/kg (275-300); CALCIUM 8.6 mg/dL (8.5-10.1); CARBON DIOXIDE 24.6 mmol/L (21.0-32.0); CHLORIDE - SERUM 101 mmol/L (98-107); CREATININE - SERUM 0.7 mg/dL (0.6-1.3); GLUCOSE 90 mg/dL (74-106); POTASSIUM - SERUM 3.1 mmol/L (3.5-5.1); PROTEIN - SERUM 6.5 g/dL (6.4-8.2); SODIUM 137 mmol/L (136-145); UREA NITROGEN 10 mg/dL (7-18); eGFR NON AFRICAN AMERICAN 84 mL/min (90-120)
[2020-06-04 09:50] LABS: BASOPHILS 0.2 % (0-2); EOSINOPHILS 1.1 % (0-7); HEMATOCRIT 30.4 % (36.0-48.0); HEMOGLOBIN 9.3 g/dL (12-16); IMMATURE GRANULOCYTES 0.4 % (0-5); LYMPHOCYTES 15.2 % (15-50); MCH 26.8 pg (26.0-34.0); MCHC 30.6 g/dL (31.0-37.0); MCV 87.6 fL (80.0-100.0); MEAN PLATELET VOLUME 8.5 fL (7.4-10.4); MONOCYTES 8.6 % (2-11); NEUTROPHILS 74.5 % (40-80); PLATELET COUNT 198 10x3/uL (130-400); RBC 3.47 10x6/uL (4.00-5.40); WBC 4.8 10x3/uL (4.8-10.8)
[2020-06-04 12:38] VITALS: BMI 22.6
--- NOTE | 2020-06-04 16:15 | NUR ---
FAMILY REMAINS AT BEDSIDE. PATIENT IS RESTING,WITHOUT NEEDS. BARBER IN PLACE
[2020-06-04 17:48] VITALS: BP 155/73
[2020-06-04 20:00] VITALS: BP 173/84
[2020-06-04 20:42] VITALS: Ht 167.6 cm; Wt 63.5 kg
[2020-06-05] VITALS (12 sets, daily range): BP systolic 139–183; BP diastolic 62–93
--- NOTE | 2020-06-05 02:50 | NUR ---
IN BED SLEEPING ON BACK. NO S/S OF DISTRESS. IV TO RIGHT FOREARM WITH NS AT 75. 20 SACHA IV TO RIGHT AC THAT IS S/L. ON ROOM AIR. NPO AT MIDNIGHT PER ORDERS. SCD,S IN PLACE.
[2020-06-05 05:31] LABS: BASOPHILS 0.2 % (0-2); EOSINOPHILS 1.2 % (0-7); HEMATOCRIT 29.3 % (36.0-48.0); IMMATURE GRANULOCYTES 0.6 % (0-5); LYMPHOCYTES 15.5 % (15-50); MCH 26.6 pg (26.0-34.0); MCHC 30.7 g/dL (31.0-37.0); MCV 86.7 fL (80.0-100.0); MEAN PLATELET VOLUME 8.1 fL (7.4-10.4); MONOCYTES 8.3 % (2-11); NEUTROPHILS 74.2 % (40-80); PLATELET COUNT 181 10x3/uL (130-400); RBC 3.38 10x6/uL (4.00-5.40); WBC 5.2 10x3/uL (4.8-10.8)
[2020-06-05 05:39] LABS: APTT 36.8 SECONDS (22.8-39.4); INR 1.1 (0.85-1.17); PROTIME 14.1 SECONDS (11.6-15.0)
[2020-06-05 06:48] LABS: CALC OSMOLALITY 274 mosm/kg (275-300); CALCIUM 8.6 mg/dL (8.5-10.1); CARBON DIOXIDE 27.2 mmol/L (21.0-32.0); CHLORIDE - SERUM 103 mmol/L (98-107); CREATININE - SERUM 0.7 mg/dL (0.6-1.3); GLUCOSE 95 mg/dL (74-106); POTASSIUM - SERUM 3.4 mmol/L (3.5-5.1); SODIUM 138 mmol/L (136-145); UREA NITROGEN 9 mg/dL (7-18); eGFR NON AFRICAN AMERICAN 84 mL/min (90-120)
--- NOTE | 2020-06-05 08:22 | NUR ---
ASSESSMENT COMPLETED PER FLOW SHEET. PATIENT HAS LEFT UNIT VIA BED FOR IR.
--- NOTE | 2020-06-05 08:23 | NUR ---
CALL TO MR. KENT [phone]. NO ANSWER,MESSAGE LEFT FOR HIM TO CALL UNIT.
--- NOTE | 2020-06-05 09:00 | NUR ---
PATIENT BACK IN ROOM. VERY SLEEPY. SHE IS WITHOUT SIGNS OF DISTRESS. VSS
--- NOTE | 2020-06-05 15:51 | NUR ---
OT NOTE: AWAITING NEURO CONSULT PRIOR TO OT ASSESSMENT. SUNNI PACKER, OTR/L
--- NOTE | 2020-06-05 18:32 | NUR ---
I have reviewed this patient and I concur with the Shift Assessment completed by the Licensed Practical Nurse today this shift.
--- NOTE | 2020-06-06 03:36 | NUR ---
ALERT AND CONFUSED. IV RESITED TO LEFT FOREARM 22 SACHA, WITH NS PER ORDERS. ON ROOM AIR. SCD'S NO NEDS AT THIS TIME CALL LIGHT AND WATER IN REACH.
[2020-06-06 04:00] VITALS: BP 159/74
[2020-06-06 06:35] LABS: BASOPHILS 0.2 % (0-2); EOSINOPHILS 0.7 % (0-7); HEMATOCRIT 29.2 % (36.0-48.0); IMMATURE GRANULOCYTES 0.3 % (0-5); LYMPHOCYTES 9.5 % (15-50); MCH 26.9 pg (26.0-34.0); MCHC 30.8 g/dL (31.0-37.0); MCV 87.2 fL (80.0-100.0); MEAN PLATELET VOLUME 8.4 fL (7.4-10.4); MONOCYTES 7.5 % (2-11); NEUTROPHILS 81.8 % (40-80); PLATELET COUNT 166 10x3/uL (130-400); RBC 3.35 10x6/uL (4.00-5.40); RDW 14.3 % (11.5-14.5)
[2020-06-06 07:00] LABS: ALBUMIN 2.6 g/dL (3.4-5.0); ALKALINE PHOSPHATASE 132 U/L (30-120); BILIRUBIN - TOTAL 0.27 mg/dL (0.2-1.3); CALC OSMOLALITY 277 mosm/kg (275-300); CALCIUM 8.6 mg/dL (8.5-10.1); CARBON DIOXIDE 24.3 mmol/L (21.0-32.0); CHLORIDE - SERUM 102 mmol/L (98-107); CREATININE - SERUM 0.6 mg/dL (0.6-1.3); GLUCOSE 113 mg/dL (74-106); POTASSIUM - SERUM 3.5 mmol/L (3.5-5.1); PROTEIN - SERUM 6.2 g/dL (6.4-8.2); SODIUM 139 mmol/L (136-145); UREA NITROGEN 9 mg/dL (7-18); eGFR NON AFRICAN AMERICAN > 90 mL/min (90-120)
[2020-06-06 07:17] LABS: ALT (SGPT) 6 U/L (10-68)
[2020-06-06 08:00] VITALS: BP 176/80
--- NOTE | 2020-06-06 09:00 | NUR ---
ASSESSMENT PER FLOW SHEET. PATIENT IS WITHOUT DISTRESS.IV RESTIED TO LEFT FOREARM X2 STICKS USING ASEPTIC TECH. IV LEFT FOREARM LEAKING AND DC'D WITH CATH TIP INTACT. BARBER ON AND WORKING.
[2020-06-06 14:13] VITALS: BP 139/60
[2020-06-06 16:44] VITALS: BP 127/67
[2020-06-06 20:00] VITALS: BP 153/67
[2020-06-07 04:00] VITALS: BP 135/67
[2020-06-07 06:23] LABS: BASOPHILS 0.2 % (0-2); HEMATOCRIT 28.5 % (36.0-48.0); HEMOGLOBIN 8.8 g/dL (12-16); IMMATURE GRANULOCYTES 0.2 % (0-5); LYMPHOCYTES 13.5 % (15-50); MCH 27.2 pg (26.0-34.0); MCHC 30.9 g/dL (31.0-37.0); MEAN PLATELET VOLUME 8.6 fL (7.4-10.4); MONOCYTES 9.4 % (2-11); NEUTROPHILS 74.7 % (40-80); PLATELET COUNT 167 10x3/uL (130-400); RBC 3.24 10x6/uL (4.00-5.40); RDW 14.5 % (11.5-14.5)
[2020-06-07 06:45] LABS: ALBUMIN 2.4 g/dL (3.4-5.0); ALKALINE PHOSPHATASE 116 U/L (30-120); ALT (SGPT) 9 U/L (10-68); BILIRUBIN - TOTAL 0.21 mg/dL (0.2-1.3); CALC OSMOLALITY 275 mosm/kg (275-300); CALCIUM 8.5 mg/dL (8.5-10.1); CARBON DIOXIDE 26.3 mmol/L (21.0-32.0); CHLORIDE - SERUM 104 mmol/L (98-107); CREATININE - SERUM 0.6 mg/dL (0.6-1.3); GLUCOSE 114 mg/dL (74-106); POTASSIUM - SERUM 3.6 mmol/L (3.5-5.1); PROTEIN - SERUM 5.9 g/dL (6.4-8.2); SODIUM 138 mmol/L (136-145); UREA NITROGEN 10 mg/dL (7-18); eGFR NON AFRICAN AMERICAN > 90 mL/min (90-120)
--- NOTE | 2020-06-07 10:04 | NUR ---
Pt has a small skin tear on her left camacho. It is horseshoe shaped and measures less than 1cm in diameter. There is no drainage, redness or edema. It is protected with a mepilex border. Pt states that she thinks she bumped the car door prior to coming to hospital. Wound care will monitor.
[2020-06-07 10:41] VITALS: BP 143/73
--- NOTE | 2020-06-07 10:41 | NUR ---
Rehab Prescreening Consult recieved and the chart has been reviewed. She is a good ARU candidate when she is medically stable, and agrees to participate in the 3 hrs of therapy everyday 5 days a week. Rehab will continue to follow. Blanquita Ndiaye RN Clinical Liaison, Rehab
--- NOTE | 2020-06-07 12:57 | NUR ---
OT NOTE: PT PERFORMED BETTER TODAY. ABLE TO PERFORM BED MOB INCLUDING LOG ROLLING WITH MAX ASSIST; SUPINE TO SIT WITH MAX ASSIST; MIN ASSIST WITH STATIC SITTING. ALBE TO STAND WITH MAX ASSIST X 2 AND USE OF WALKER. TOLERATED APPROX 1-2 MIN IN STANDING WITH VS FOR UPRIGHT STANDING. BACK TO BED WITH MAX ASSIST X 2.. PT IN TEARS UPON RETURN TO SUPINE POSIITON. INFORMED NURSING REGARDING NEED FOR PAIN PILL. SUNNI PACKER, OTR/L [phone]
--- NOTE | 2020-06-07 13:22 | NUR ---
Nutrition follow-up: Pt receiving a regular diet with po intake 50-75% of last 3 meals Labs reviewed Wt: 140# +BM Will continue to provide food choices and encourage increased po intake Will offer nutritional supplements RDN following.
[2020-06-07 14:11] VITALS: BP 167/79
--- NOTE | 2020-06-07 15:54 | MORECARE ---
CASE MANAGEMENT DISCHARGE SUMMARY PATIENT: KEILA KENT UNIT: [id number] ADM DATE: 06/03/20 AGE: 85 : 36 SEX: F ROOM/BED: D.2230 AUTHOR: MEGAN HENDERSON PHYSICIAN: REFERRING PHYSICIAN: JUANCARLOS SKINNER MD DATE OF SERVICE: 06/07/20 Discharge Plan Patient Name: KEILA KENT [facility] [facility] 1935 Planned Disposition: Inpatient Rehab Anticipated Discharge Date: Discharge Date: Expected LOS: Initial Reviewer: [email or web address] Initial Review Date: 06/03/2020 Generated: 06/07/20 4:54 pm Patient Name: KEILA KENT Page [phone] at 1554 All edits/amendments must be made on the electronic document DICTATION DATE: 06/07/201553 FISHER SPONGE HOOKING: ANABEL 06/07/20 155 RPT#: [id number] DC DATE: STATUS: ADM IN [facility] [address] [place] [address] END OF REPORT
--- NOTE | 2020-06-07 16:01 | MORECARE ---
CASE MANAGEMENT DISCHARGE SUMMARY PATIENT: KEILA KENT UNIT: [id number] ADM DATE: 06/03/20 AGE: 85 : 36 SEX: F ROOM/BED: D.2230 AUTHOR: MEGAN HENDERSON PHYSICIAN: REFERRING PHYSICIAN: JUANCARLOS SKINNER MD DATE OF SERVICE: 06/07/20 Discharge Plan Patient Name: KEILA KENT [facility] [facility] 1935 Planned Disposition: Inpatient Rehab Anticipated Discharge Date: Discharge Date: Expected LOS: Initial Reviewer: [email or web address] Initial Review Date: 06/03/2020 Generated: 06/07/20 5:01 pm DCPIA - Discharge Planning Initial Assessment Updated by [email or web address]: Licha Calvo on 06/07/20 4:00 pm * Is the patient Alert and Oriented? Yes * PCP GROSS * Pharmacy [facility] * Preadmission Environment Home with Family * ADLs Independent * Other Equipment WALKER,BSC,TRANSPORT CHAIR, * Community resources currently utilized Home Health * Please name any agencies selected above. [facility] * Additional services required to return to the preadmission environment? Yes * Can the patient safely return to the preadmission environment? Yes * Has this patient been hospitalized within the prior 30 days at any hospital? No Last DP export: 06/07/20 2:54 Patient Name: KEILA KENT Page [phone] at 1601 All edits/amendments must be made on the electronic document DICTATION DATE: 06/07/20 160 COOK DESSERT: ANABEL 06/07/20 160 RPT#: [id number] DC DATE: STATUS: ADM IN [facility] [address] [place] [address] END OF REPORT
--- NOTE | 2020-06-07 16:11 | MORECARE ---
CASE MANAGEMENT DISCHARGE SUMMARY PATIENT: KEILA KENT UNIT: [id number] ADM DATE: 06/03/20 AGE: 85 : 36 SEX: F ROOM/BED: D.2230 AUTHOR: SANTIAGO,DOC PHYSICIAN: REFERRING PHYSICIAN: JUANCARLOS SKINNER MD DATE OF SERVICE: 06/07/20 Discharge Plan Patient Name: KEILA KENT Facility: [facility]:[place] : 1935 Planned Disposition: Inpatient Rehab Anticipated Discharge Date: Discharge Date: Expected LOS: Initial Reviewer: [email or web address] Initial Review Date: 06/03/2020 Generated: 06/07/20 5:11 pm Comments DCP- Discharge Planning Updated by [email or web address]: Licha Calvo on 06/07/20 3:[address] Patient Name: KEILA KENT Admission Status: ER Accout number: [id number] Admission Date: 06-03-2020 : 1935 Admission Diagnosis:URINARY TRACT INFECTION, SITE NOT SPECIFIED Attending: JUANCARLOS SKINNER Current LOS: 4 Anticipated DC Date: Planned Disposition: Inpatient Rehab Primary Insurance: MEDICARE A & B Discharge Planning Comments: CM met with patient at bedside after explaining CM role and obtaining verbal consent. CM discussed availability / needs of home health, REHAB and medical equipment. PATIENT WOULD LIKE INPATIENT REHAB HERE AT [facility] [place] [place]. JORGE SIGNED. CM TO FOLLOW AND ASSIST. Resident Doctor: Licha Calvo DCPIA - Discharge Planning Initial Assessment Updated by [email or web address]: Licha Calvo on 06/07/20 4:00 pm * Is the patient Alert and Oriented? Yes * PCP MAIK * Pharmacy [facility] * Preadmission Environment Home with Family * ADLs Independent * Other Equipment WALKER,BSC,TRANSPORT CHAIR, * Community resources currently utilized Home Health * Please name any agencies selected above. [facility] * Additional services required to return to the preadmission environment? Yes * Can the patient safely return to the preadmission environment? Yes * Has this patient been hospitalized within the prior 30 days at any hospital? No Coverage Notice Reviewer: [email or web address] Lance Calvo Notice Issued Date-Time: 06/07/2020 16:02 Notice Type: Patient Choice Letter Notice Delivered To: Relationship to Patient: Merchandising Assistant Name: Delivery Method: - Katie Days: Prior Verbal Notification: Recipient Understood Notice: Recipient Signature: Med Rec Note Co-signed by Attending: Coverage Notice Comment: [facility] Last DP export: 06/07/20 3:01 Patient Name: KEILA KENT Page 66869 at 1611 All edits/amendments must be made on the electronic document DICTATION DATE: 06/07/201610 REFRESH TECHNICIAN: ANABEL 06/07/201610 RPT#: [id number] DC DATE: STATUS: ADM IN [facility] [address] [place] [address] END OF REPORT
[2020-06-07 17:42] VITALS: BP 175/87
--- NOTE | 2020-06-07 18:01 | NUR ---
OT NOTE: (DOS 06/06/2020) PT COMPLETED BUE AROM TOLERATED. PT COMPLETED BED MOB MAX A. [phone] THANK YOU,ZULLY BARRAZA
[2020-06-07 20:30] VITALS: BP 139/65
[2020-06-08 00:14] VITALS: BP 141/68
[2020-06-08 04:30] VITALS: BP 131/64
[2020-06-08 07:11] LABS: BASOPHILS 0 % (0-2); EOSINOPHILS 2.9 % (0-7); HEMATOCRIT 29.9 % (36.0-48.0); HEMOGLOBIN 9.2 g/dL (12-16); IMMATURE GRANULOCYTES 0.2 % (0-5); LYMPHOCYTES 14.6 % (15-50); MCHC 30.8 g/dL (31.0-37.0); MCV 87.7 fL (80.0-100.0); MEAN PLATELET VOLUME 8.5 fL (7.4-10.4); MONOCYTES 8.6 % (2-11); NEUTROPHILS 73.7 % (40-80); PLATELET COUNT 161 10x3/uL (130-400); RBC 3.41 10x6/uL (4.00-5.40); RDW 14.6 % (11.5-14.5); WBC 4.2 10x3/uL (4.8-10.8)
[2020-06-08 07:16] LABS: ALBUMIN 2.4 g/dL (3.4-5.0); ALKALINE PHOSPHATASE 117 U/L (30-120); ALT (SGPT) 7 U/L (10-68); BILIRUBIN - TOTAL 0.23 mg/dL (0.2-1.3); CALC OSMOLALITY 278 mosm/kg (275-300); CALCIUM 8.7 mg/dL (8.5-10.1); CARBON DIOXIDE 28.7 mmol/L (21.0-32.0); CHLORIDE - SERUM 104 mmol/L (98-107); CREATININE - SERUM 0.7 mg/dL (0.6-1.3); GLUCOSE 109 mg/dL (74-106); POTASSIUM - SERUM 3.6 mmol/L (3.5-5.1); PROTEIN - SERUM 6.1 g/dL (6.4-8.2); SODIUM 140 mmol/L (136-145); UREA NITROGEN 10 mg/dL (7-18); eGFR NON AFRICAN AMERICAN 84 mL/min (90-120)
[2020-06-08 08:00] VITALS: BP 150/70
--- NOTE | 2020-06-08 08:08 | NUR ---
0700 BEDSIDE REPORT RECEIVED EASILY AWAKENS VOICES NO COMPLAINTS
[2020-06-08 16:00] VITALS: BP 168/77
[2020-06-08 20:00] VITALS: BP 114/49
[2020-06-09] VITALS: BP 105/54
[2020-06-09 04:00] VITALS: BP 93/48
--- NOTE | 2020-06-09 04:25 | NUR ---
I have reviewed this patient and I concur with the Shift Assessment completed by the Licensed Practical Nurse today this shift.
[2020-06-09 09:30] VITALS: BP 107/56
[2020-06-09 10:23] LABS: BASOPHILS 0.2 % (0-2); HEMATOCRIT 27.1 % (36.0-48.0); HEMOGLOBIN 8.3 g/dL (12-16); IMMATURE GRANULOCYTES 0.2 % (0-5); LYMPHOCYTES 16.6 % (15-50); MCH 27.2 pg (26.0-34.0); MCHC 30.6 g/dL (31.0-37.0); MCV 88.9 fL (80.0-100.0); MEAN PLATELET VOLUME 8.8 fL (7.4-10.4); MONOCYTES 7.1 % (2-11); NEUTROPHILS 72.9 % (40-80); RBC 3.05 10x6/uL (4.00-5.40); WBC 5.1 10x3/uL (4.8-10.8)
[2020-06-09 10:32] LABS: ALBUMIN 2.5 g/dL (3.4-5.0); ALKALINE PHOSPHATASE 108 U/L (30-120); ALT (SGPT) 8 U/L (10-68); BILIRUBIN - TOTAL 0.28 mg/dL (0.2-1.3); CALC OSMOLALITY 278 mosm/kg (275-300); CALCIUM 8.7 mg/dL (8.5-10.1); CARBON DIOXIDE 29.1 mmol/L (21.0-32.0); CHLORIDE - SERUM 103 mmol/L (98-107); CREATININE - SERUM 0.7 mg/dL (0.6-1.3); GLUCOSE 94 mg/dL (74-106); POTASSIUM - SERUM 3.3 mmol/L (3.5-5.1); PROTEIN - SERUM 6.1 g/dL (6.4-8.2); SODIUM 140 mmol/L (136-145); UREA NITROGEN 12 mg/dL (7-18); eGFR NON AFRICAN AMERICAN 84 mL/min (90-120)
[2020-06-09 10:34] LABS: PLATELET COUNT 194 10x3/uL (130-400)
[2020-06-09 13:00] VITALS: BP 113/58
[2020-06-09 17:23] VITALS: BP 105/55
[2020-06-09 20:00] VITALS: BP 118/57
--- NOTE | 2020-06-09 20:30 | NUR ---
SUPINE IN BED, A&O, REPORTS PAIN 7/10 TO LOWER BACK. ICEWATER PER REQUEST, NO FURTHER NEEDS, CTM.
--- NOTE | 2020-06-10 04:23 | NUR ---
I have reviewed this patient and I concur with the Shift Assessment completed by the Licensed Practical Nurse today this shift.
[2020-06-10 06:30] VITALS: BP 145/70
[2020-06-10 06:58] LABS: BASOPHILS 0.2 % (0-2); EOSINOPHILS 3.2 % (0-7); HEMATOCRIT 26.7 % (36.0-48.0); HEMOGLOBIN 8.5 g/dL (12-16); IMMATURE GRANULOCYTES 0.2 % (0-5); LYMPHOCYTES 11.5 % (15-50); MCH 27.9 pg (26.0-34.0); MCHC 31.8 g/dL (31.0-37.0); MEAN PLATELET VOLUME 8.5 fL (7.4-10.4); MONOCYTES 8.4 % (2-11); NEUTROPHILS 76.5 % (40-80); PLATELET COUNT 164 10x3/uL (130-400); RBC 3.05 10x6/uL (4.00-5.40); RDW 14.7 % (11.5-14.5); WBC 4.4 10x3/uL (4.8-10.8)
[2020-06-10 07:31] LABS: ALBUMIN 2.5 g/dL (3.4-5.0); ALKALINE PHOSPHATASE 121 U/L (30-120); BILIRUBIN - TOTAL 0.25 mg/dL (0.2-1.3); CALC OSMOLALITY 272 mosm/kg (275-300); CALCIUM 8.4 mg/dL (8.5-10.1); CARBON DIOXIDE 25.1 mmol/L (21.0-32.0); CHLORIDE - SERUM 101 mmol/L (98-107); CREATININE - SERUM 0.6 mg/dL (0.6-1.3); GLUCOSE 107 mg/dL (74-106); PROTEIN - SERUM 6.1 g/dL (6.4-8.2); SODIUM 137 mmol/L (136-145); UREA NITROGEN 10 mg/dL (7-18); eGFR NON AFRICAN AMERICAN > 90 mL/min (90-120)
[2020-06-10 07:34] LABS: ALT (SGPT) 11 U/L (10-68); POTASSIUM - SERUM 3.8 mmol/L (3.5-5.1)
[2020-06-10 08:32] LABS: MCV 87.7 fL (80.0-100.0)
--- NOTE | 2020-06-10 08:50 | NUR ---
0700 BEDSIDE REPORT RECEIVED
--- NOTE | 2020-06-10 08:51 | NUR ---
0840 EMESIS NOTED BATHED PATIENT CHANGED ALL LINENS ASSIST X 3 TO GET UP IN CHAIR ZOFRAN IV GIVEN
[2020-06-10 09:39] VITALS: BP 159/70
--- NOTE | 2020-06-10 12:15 | NUR ---
OT NOTE: PT PERFORMED MUCH BETTER TODAY. PT SEEN WITH OT/PT.. PT WAS UP IN CHAIR.. PRACTICED POSITIONING IN CHAIR AND TRUNK STRENGTHENING ACT; ABLE TO PERFORM SIT TO STAND WITH MOD ASSIST X 2 FROM CHAIR LEVEL AND USE OF WALKER. ABLE TO TAKE SEVERAL STEPS FORWARD AND BACKWARD. C/O PAIN IN L SIDE DURING ALL MOVEMENT. UE AROM EXS X 2 SETS..SIMPLE GROOMING TASKS INCLUDING PUTTING IN HEARING AIDES WITH SET UP (AFTER ASSIST WITH BATTERY) SUNNI PACKER, OTR/L [phone]
[2020-06-10 12:21] VITALS: BP 131/71
--- NOTE | 2020-06-10 14:30 | NUR ---
Rehab Continues to follow this patient for the ARU program. She is a good candidate, but we need to know what buttermaker continuous churn IV antibiotics she will be on prior to discharging to rehab. Discussed with the CM Licha Calvo RN. Blanquita Ndiaye RN Clinical Liaison, Rehab
[2020-06-10 17:00] VITALS: BP 107/62
[2020-06-10 20:00] VITALS: BP 136/74
--- NOTE | 2020-06-11 02:36 | NUR ---
I have reviewed this patient and I concur with the Shift Assessment completed by the Licensed Practical Nurse today this shift.
[2020-06-11 04:00] VITALS: BP 139/76
--- NOTE | 2020-06-11 04:00 | NUR ---
PT REPORTS NAUSEA AND HUNGER. SUGGESTED PRN ZOFRAN, THEN AFTER NAUSEA SUBSIDES, ID BRING A SNACK. PT VERBALIZED UNDERSTANDING.
[2020-06-11 07:10] LABS: ALBUMIN 2.6 g/dL (3.4-5.0); ALKALINE PHOSPHATASE 123 U/L (30-120); ALT (SGPT) 9 U/L (10-68); BASOPHILS 0.2 % (0-2); BILIRUBIN - TOTAL 0.27 mg/dL (0.2-1.3); CALC OSMOLALITY 263 mosm/kg (275-300); CALCIUM 8.9 mg/dL (8.5-10.1); CARBON DIOXIDE 27.2 mmol/L (21.0-32.0); CHLORIDE - SERUM 97 mmol/L (98-107); CREATININE - SERUM 0.7 mg/dL (0.6-1.3); EOSINOPHILS 2.4 % (0-7); GLUCOSE 113 mg/dL (74-106); HEMATOCRIT 27.5 % (36.0-48.0); HEMOGLOBIN 8.7 g/dL (12-16); IMMATURE GRANULOCYTES 0.2 % (0-5); LYMPHOCYTES 10.9 % (15-50); MCH 27.4 pg (26.0-34.0); MCHC 31.6 g/dL (31.0-37.0); MCV 86.5 fL (80.0-100.0); MEAN PLATELET VOLUME 8.4 fL (7.4-10.4); NEUTROPHILS 76.3 % (40-80); PLATELET COUNT 174 10x3/uL (130-400); POTASSIUM - SERUM 3.4 mmol/L (3.5-5.1); PROTEIN - SERUM 6.4 g/dL (6.4-8.2); RBC 3.18 10x6/uL (4.00-5.40); RDW 14.3 % (11.5-14.5); SODIUM 132 mmol/L (136-145); UREA NITROGEN 8 mg/dL (7-18); WBC 4.2 10x3/uL (4.8-10.8); eGFR NON AFRICAN AMERICAN 84 mL/min (90-120)
[2020-06-11 10:00] VITALS: BP 165/95
--- NOTE | 2020-06-11 13:16 | NUR ---
OT NOTE: PT HAVING SIGNIFICANT BALANCE ISSUES TODAY. MAX ASSIST X 2 FOR SUPINE TO SIT; MOD ASSIST FOR SITTING BALANCE PT WAS LEANING HARD TO R SIDE. PT UNABLE TO ORIENT TO MIDLINE. PT WAS ABLE TO WASH HER FACE AND HANDS, HOWEVER, REQUIRED MAX ASSIST FOR REMAINDER OF BATHING; MAX ASSIST WITH TOILET HYGIENE, MAX ASSIST WITH LE DRESSING. VERY WEAK WITH HIGH ANXIETY DURING TRANSFERS TODAY. MAX ASSIST X 2 FOR TAKE SEVERAL STEPS FROM BED TO CHAIR.. NOT SURE WHY THE DECLINE IN BALANCE TODAY. SUNNI PACKER, OTR/L [phone]
[2020-06-11 13:50] VITALS: BP 153/77
[2020-06-11] MEDS ORDERED: DIFLUCAN200 MG PO (14:20)
--- NOTE | 2020-06-11 15:32 | MORECARE ---
CASE MANAGEMENT DISCHARGE SUMMARY PATIENT: KEILA KENT UNIT: [id number] ADM DATE: 06/03/20 AGE: 85 : 36 SEX: F ROOM/BED: D.2230 AUTHOR: SANTIAGO,DOC PHYSICIAN: REFERRING PHYSICIAN: JUANCARLOS SKINNER MD DATE OF SERVICE: 06/11/20 Discharge Plan Patient Name: KEILA EKNT Facility: [facility]:[place] : 1935 Planned Disposition: Inpatient Rehab Anticipated Discharge Date: Discharge Date: Expected LOS: Initial Reviewer: [email or web address] Initial Review Date: 06/03/2020 Generated: 06/11/20 4:31 pm Comments DCP- Discharge Planning Updated by [email or web address]: Licha Calvo on 06/11/20 2:[address] Patient Name: KEILA KENT Admission Status: ER Accout number: [id number] Admission Date: 06-03-2020 : 1935 Admission Diagnosis:URINARY TRACT INFECTION, SITE NOT SPECIFIED Attending: JUANCARLOS SKINNER Current LOS: 8 Anticipated DC Date: Planned Disposition: Inpatient Rehab Primary Insurance: MEDICARE A & B Discharge Planning Comments: PLANS TO DC TO [facility] HERE TODAY. AT BEDSIDE. IMM SIGNED AND PLACED ON CHART. CM TO FOLLOW AND ASSIST NEEDED. Slot Supervisor: Licha Calvo DCP- Discharge Planning Updated by [id number]: Licha Calvo on 06/07/20 3:[address] Patient Name: KEILA KENT Admission Status: ER Accout number: [id number] Admission Date: 06-03-2020 : 1935 Admission Diagnosis:URINARY TRACT INFECTION, SITE NOT SPECIFIED Attending: JUANCARLOS SKINNER Current LOS: 4 Anticipated DC Date: Planned Disposition: Inpatient Rehab Primary Insurance: MEDICARE A & B Discharge Planning Comments: CM met with patient at bedside after explaining CM role and obtaining verbal consent. CM discussed availability / needs of home health, REHAB and medical equipment. PATIENT WOULD LIKE INPATIENT REHAB HERE AT [facility]. JORGE SIGNED. CM TO FOLLOW AND ASSIST. Slot Supervisor: Licha Calvo DCPIA - Discharge Planning Initial Assessment Updated by [email or web address]: Licha Calvo on 06/07/20 4:00 pm * Is the patient Alert and Oriented? Yes * PCP MAIK * [facility] * Preadmission Environment Home with Family * ADLs Independent * Other Equipment WALKER,BSC,TRANSPORT CHAIR, * Community resources currently utilized Home Health * Please name any agencies selected above. [facility] * Additional services required to return to the preadmission environment? Yes * Can the patient safely return to the preadmission environment? Yes * Has this patient been hospitalized within the prior 30 days at any hospital? No Coverage Notice Reviewer: [email or web address] Lance Calvo Notice Issued Date-Time: 06/07/2020 16:02 Notice Type: Patient Choice Letter Notice Delivered To: Relationship to Patient: Quiller Runner Name: Delivery Method: - Katie Days: Prior Verbal Notification: Recipient Understood Notice: Recipient Signature: Med Rec Note Co-signed by Attending: Coverage Notice Comment: [facility] Reviewer: [email or web address] Lance Calvo Notice Issued Date-Time: 06/11/2020 14:50 Notice Type: IM Discharge Notice Notice Delivered To: Patient Relationship to Patient: Quiller Runner Name: Delivery Method: - Katie Days: Prior Verbal Notification: Recipient Understood Notice: Yes Recipient Signature: Yes Med Rec Note Co-signed by Attending: Coverage Notice Comment: Last DP export: 06/07/20 3:11 Patient Name: KEILA KENT Page 56748 at 1532 All edits/amendments must be made on the electronic document DICTATION DATE: 06/11/201530 AERONAUTICAL DRAFTER: ANABEL 06/11/201530 RPT#: [id number] DC DATE: STATUS: ADM IN [facility] [address] [place] [address] END OF REPORT
--- NOTE | 2020-06-11 16:42 | NUR ---
RETURNED PT TO BED FROM RECLINER CHAIR WITH PT TO ASSIST
--- NOTE | 2020-06-11 16:44 | NUR ---
REPORT CALLED TO GRACIELA ON RHAB UNIT
--- NOTE | 2020-06-11 16:45 | NUR ---
PT UP ON BEDPAN AND WILL TRANSFER HER AFTER TOILETING COMPLETE SPOUSE IN ROOM PACKING BAGS
--- NOTE | 2020-06-11 17:30 | NUR ---
1705 TRANSFERRED TO REHAB VIA BED
--- NOTE | 2020-06-12 09:30 | MORECARE ---
CASE MANAGEMENT DISCHARGE SUMMARY PATIENT: KEILA KENT UNIT: [id number] ADM DATE: 06/03/20 AGE: 85 : 37 SEX: F ROOM/BED: D.2230 AUTHOR: SANTIAGO,DOC PHYSICIAN: REFERRING PHYSICIAN: JUANCARLOS SKINNER MD DATE OF SERVICE: 06/12/20 Discharge Plan Patient Name: KEILA KENT Facility: [facility]:[place] : 1935 Planned Disposition: Inpatient Rehab Anticipated Discharge Date: Discharge Date: 06/11/2020 Expected LOS: Initial Reviewer: [id number] Initial Review Date: 06/03/2020 Generated: 06/12/20 10:30 am Comments DCP- Discharge Planning Updated by [id number]: Licha Calvo on 06/11/20 2:[address] Patient Name: KEILA KENT Admission Status: ER Accout number: [id number] Admission Date: 06-03-2020 : 1935 Admission Diagnosis:URINARY TRACT INFECTION, SITE NOT SPECIFIED Attending: JUANCARLOS SKINNER Current LOS: 8 Anticipated DC Date: Planned Disposition: Inpatient Rehab Primary Insurance: MEDICARE A & B Discharge Planning Comments: PLANS TO DC TO [facility] HERE TODAY. AT BEDSIDE. IMM SIGNED AND PLACED ON CHART. CM TO FOLLOW AND ASSIST NEEDED. Refuge Manager: Licha Calvo DCP- Discharge Planning Updated by [id number]: Licha Calvo on 06/07/20 3:[address] Patient Name: KEILA KENT Admission Status: ER Accout number: [id number] Admission Date: 06-03-2020 : 1935 Admission Diagnosis:URINARY TRACT INFECTION, SITE NOT SPECIFIED Attending: JUANCARLOS SKINNER Current LOS: 4 Anticipated DC Date: Planned Disposition: Inpatient Rehab Primary Insurance: MEDICARE A & B Discharge Planning Comments: CM met with patient at bedside after explaining CM role and obtaining verbal consent. CM discussed availability / needs of home health, REHAB and medical equipment. PATIENT WOULD LIKE INPATIENT REHAB HERE AT [facility]. JORGE SIGNED. CM TO FOLLOW AND ASSIST. Refuge Manager: Licha Calvo DCPIA - Discharge Planning Initial Assessment Updated by [id number]: Licha Calvo on 06/07/20 4:00 pm * Is the patient Alert and Oriented? Yes * PCP MAIK * Pharmacy [facility] * Preadmission Environment Home with Family * ADLs Independent * Other Equipment WALKER,BSC,TRANSPORT CHAIR, * Community resources currently utilized Home Health * Please name any agencies selected above. [facility] * Additional services required to return to the preadmission environment? Yes * Can the patient safely return to the preadmission environment? Yes * Has this patient been hospitalized within the prior 30 days at any hospital? No Coverage Notice Reviewer: [email or web address] Calvo Notice Issued Date-Time: 06/07/2020 16:02 Notice Type: Patient Choice Letter Notice Delivered To: Relationship to Patient: Endoscopy Technician Name: Delivery Method: - Katie Days: Prior Verbal Notification: Recipient Understood Notice: Recipient Signature: Med Rec Note Co-signed by Attending: Coverage Notice Comment: [facility] Reviewer: [email or web address] Calvo Notice Issued Date-Time: 06/11/2020 14:50 Notice Type: IM Discharge Notice Notice Delivered To: Patient Relationship to Patient: Endoscopy Technician Name: Delivery Method: - Katie Days: Prior Verbal Notification: Recipient Understood Notice: Yes Recipient Signature: Yes Med Rec Note Co-signed by Attending: Coverage Notice Comment: Last DP export: 06/11/20 2:32 Patient Name: KEILA KENT Page [id number] at 0930 All edits/amendments must be made on the electronic document DICTATION DATE: 06/12/20929 CONCRETE FENCE BUILDER: ANABEL 06/12/20929 RPT#: [id number] DC DATE:06/11/20 STATUS: DIS IN [facility] [address] [place] [address] END OF REPORT
== END 2020-06-11 17:40 | DRG 552 ==
LOC: D.ER 13:01 → D.MS 19:59 → D.EDHOLD 19:59 → D.MS 22:49
PROVIDERS: Family Medicine; Specialist; ADMIT Family Medicine; ATTEND Family Medicine
PROC: 0S903ZZ Drainage of Lumbar Vertebral Joint, Percutaneous Approach (ICD-10-PCS; principal; 2020-06-05 08:30)
DX: M46.46 Discitis, unspecified, lumbar region (principal); N39.0 Urinary tract infection, site not specified; R26.9 Unspecified abnormalities of gait and mobility; I10 Essential (primary) hypertension; G89.29 Other chronic pain; E03.9 Hypothyroidism, unspecified

== ENCOUNTER 2021-02-15 16:55 | Emergency (ER) | payer MEDICARE, OTHER ==
[~2021-02-15] VITALS: Ht 167.6 cm; Wt 59.1 kg
[~2021-02-15 16:55] MED LIST changes: +CELEXA20 MG PO; +COZAAR100 MG PO; +DIFLUCAN200 MG PO; +HYDROCODONE-AC1 EAC2 PO; +LUNESTA1 MG PO; +NORVASC5 MG PO; +XALATAN 0.0052.5 ML EACH EYE
[2021-02-15 16:57] VITALS: Ht 167.6 cm; Wt 59.1 kg
[2021-02-15] MEDS ORDERED: TOPROL XL25 MG (17:19)
[2021-02-15 17:50] LABS: BASOPHILS 0.6 % (0-2); EOSINOPHILS 1.7 % (0-7); HEMATOCRIT 35.8 % (36.0-48.0); HEMOGLOBIN 11.9 g/dL (12-16); LYMPHOCYTES 15.8 % (15-50); MCH 30.1 pg (26.0-34.0); MCHC 33.1 g/dL (31.0-37.0); MCV 90.7 fL (80.0-100.0); MEAN PLATELET VOLUME 6.2 fL (7.4-10.4); NEUTROPHILS 73.9 % (40-80); PLATELET COUNT 116 10x3/uL (130-400); RBC 3.95 10x6/uL (4.00-5.40); RDW 15.9 % (11.5-14.5); WBC 5.1 10x3/uL (4.8-10.8)
[2021-02-15 17:53] LABS: BILIRUBIN NEGATIVE (NEGATIVE); KETONE NEGATIVE mg/dL (< 1+); NITRITE NEGATIVE (NEGATIVE); SQUAMOUS EPITHELIAL <1 HPF (0-4); UROBILINOGEN NORMAL mg/dL (< 2); WHITE CELLS - URINE <1 HPF (0-4)
[2021-02-15 17:56] LABS: ANION GAP 11.9 mmol/L (8-16); CALCIUM 9.2 mg/dL (8.5-10.1); CARBON DIOXIDE 29.8 mmol/L (21.0-32.0); CREATININE - SERUM 0.8 mg/dL (0.6-1.3); POTASSIUM - SERUM 3.7 mmol/L (3.5-5.1)
[2021-02-15 18:01] LABS: ALBUMIN 3.9 g/dL (3.4-5.0); BILIRUBIN - TOTAL 0.42 mg/dL (0.2-1.3); PROTEIN - SERUM 7.2 g/dL (6.4-8.2)
[2021-02-15 18:07] LABS: APTT 29.5 SECONDS (22.8-39.4); INR 1.05 (0.85-1.17); PROTIME 12.7 SECONDS (11.6-15.0)
[2021-02-15] MEDS ORDERED: CYCLOBENZAPRINE5 MG PO (18:14)
[2021-02-15] MEDS ORDERED: ACETAMINOPHEN500 M1 PO (18:14)
[2021-02-15 19:41] VITALS: BP 172/71
== END 2021-02-15 19:42 | disposition home or self-care (01) ==
LOC: D.ER 16:55
PROVIDERS: Family Medicine
DX: M25.552 Pain in left hip (principal); M79.10 Myalgia, unspecified site; I10 Essential (primary) hypertension